=== PATIENT | female | born 1935 | race Caucasian/White ===

== ENCOUNTER 2019-07-30 14:43 | Emergency (ER) | payer OTHER ==
--- OUTSIDE RECORDS SUMMARY | 2019-07-30 14:45 | XMS REPORT | Continuity of Care Document ---
:1935 Author Organization [facility] t Address [address] [place] [address] Care Team Providers Name Role Phone Unavailable Unavailable Unavailable Problems Condition Condition Condition Status Onset Resolution Last Treating Co mments Source Name Details Category Date Date Treatment Clinician Date History of History of Problem Active [facility] partial partial [facility] - colectomy colectomy Uri erica l Outpati ent Clinics Non-season Non-season Problem Active [facility] al al [facility] - allergic allergic Memori a rhinitis, rhinitis, l unspecifie unspecifie Ou tpati d trigger d trigger ent Clinics History of History of Problem Active [facility] colon colon [facility] - cancer cancer [facility] HTN HTN Problem Active [facility] (hypertens (hypertens [place] [facility] - ion) ion) [facility] Generalize Generalize Problem Active [facility] d anxiety d anxiety [facility] - disorder disorder Memori a l Outpati ent Clinics Atrial Atrial Problem Active [facility] fibrillati fibrillati [place] kes - on, on, Memoria unspecifie unspecifie l d type d type Outpati ent Clinics Current Current Problem Active [facility] 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 ent without without Clinics prior prior episode episode Abnormal Abnormal Problem Active [facility] heart heart [facility] - rhythm rhythm [facility] Urinary Urinary Problem Active [facility] incontinen incontinen [place] kes - ce, ce, Memoria unspecifie unspecifie l d type d type Outpati ent Clinics Primary Primary Problem Active [facility] osteoarthr osteoarthr [place] [facility] - itis, itis, Memoria right right l shoulder shoulder Outpat i ent Clinics Primary Primary Problem Active [facility] osteoarthr osteoarthr [place] [facility] - itis, left itis, left Me moria shoulder shoulder l Outpati ent Clinics Heart Heart Problem Active [facility] disease disease [facility]ics Cancer Cancer Problem Active [facility] Lower Lower Problem Active [facility] extremity extremity Luke s - neuropathy neuropathy Me moria l [facility] Dysphagia, Dysphagia, Problem Active [facility] unspecifie unspecifie [place] [facility]es - d type d type Memoria l [facility] Circulatio Circulatio Problem Active [facility] n problem n problem [facility] - [facility] Aortic Aortic Problem Active [facility] valve valve [facility] - stenosis, stenosis, Uri erica etiology etiology l of cardiac of cardiac Ou tpati valve valve ent disease disease Clinics unspecifie unspecifie d d Depression Depression Problem Active [facility] Gallstones Gallstones Problem Active [facility] Anxiety Anxiety Problem Active [facility] 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 [facility] Stroke Stroke Problem Active [facility] Diverticul Diverticul Problem Active [facility] itis itis [facility] - [facility] Discolored Discolored Diagnosis Active [facility] skin skin [facility] Left leg Left leg Diagnosis Active [facility] pain pain [facility] Swelling Swelling Diagnosis Active [facility] of left of left [facility] - foot foot [facility] l [facility] Dermatitis Dermatitis Diagnosis Active [facility] of left of left [facility] - foot foot [facility] l [facility] Allergies, Adverse Reactions, Alerts Allergy Allergy Status Severity Reaction(s) Onset Inactive Treating Comm ents Source Name Type Date Date Clinician Codeine Adverse Active Info Not [facility] Sulfate Reaction Available [facility] - [facility] Medications Ordered Filled Start Stop Current Ordering Indication Dosage Frequency Signature Comments Components Source Medication Medication Date Date Medication? Clinician (SIG) Name Name HydrOXYzine HydrOXYzine Yes Grayson [address] [facility] HCl HCl [facility]an [facility] Atenolol Atenolol Yes Grayson [address] [facility] Eliquis Eliquis Yes Grayson [address] [facility] Citalopram Citalopram Yes Grayson [address] [facility] [address] Hydrobromid Hydrobromid [facility]an [facility] - e e [facility] Outpati ent Clinics Tolterodine Tolterodine Yes Grayson [address] Tartrate Tartrate [facility] Outpati ent Clinics Myrbetriq Myrbetriq Grayson [address] [facility] 07-01 [facility]an [facility] - 00:00 Memoria :00 l Outpati ent Clinics Procedures This patient has no known procedures. Encounters Start End Encounter Admission Attending Care Care Encounter Source Date/Time Date/Time Type Type Clinicians Facility Department ID 2019-07-29 2019-07-29 Outpatient Kimberlyn Morrow [id number] [facility] 11:45:00 11:45:00 t [facility] 2019-07-16 2019-07-16 Outpatient Kimberlyn Morrow [id number] [facility] 13:58:00 13:58:00 t [facility] properties and services [facility] Medicine Outpati ent Clinics 2019-05-29 2019-05-29 Outpatient Kimberlyn Morrow [id number] [facility] 13:15:00 13:15:00 t [facility] Results This patient has no known results.
--- OUTSIDE RECORDS SUMMARY | 2019-07-30 14:46 | XMS REPORT ---
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 Problem Cancer C80.1 Active Problem History of colon cancer Z85.038 Acti ve Problem Lower extremity neuropathy G57.90 A ctive Problem Dysphagia, unspecified type R13.10 Active Problem Circulation problem I99.9 Active Problem Aortic valve stenosis, etiology of I35.0 Active cardiac valve disease unspecified Problem Atrial fibrillation, unspecified I48.91 Active type Problem HTN (hypertension) I10 Active Problem Depression F32.9 Active Problem Gallstones K80.20 Active Problem Generalized anxiety disorder F41.1 Active Problem Anxiety F41.9 Active Problem Allergic rhinitis J30.9 Active Problem Stroke I63.9 Active Problem Essential hypertension I10 Activ e Problem History of partial colectomy Z90.49 Active Problem Diverticulitis K57.92 Active Problem Non-seasonal allergic rhinitis, J30.89 Active unspecified trigger Medications No Known Medications Results No Known Results Summary Purpose eClinicalWorks Submission
--- OUTSIDE RECORDS SUMMARY | 2019-07-30 14:46 | XMS REPORT ---
:1935 Author Organization [employer] Care Team Providers Name Role Phone Aung Grayson Provider Role Unavailable Allergies, Adverse Reactions, Alerts Substance Reaction Event Type Codeine Sulfate Info Not Available Drug Allergy Problems Problem Type Condition Code Onset Dates Condition Statu s Assessment Discolored skin L81.9 Active Assessment Left leg pain M79.605 Active Assessment Swelling of left foot M79.89 Active Assessment Dermatitis of left foot L30.9 Acti ve Problem Essential hypertension I10 Activ e Problem Non-seasonal allergic rhinitis, J30.89 Active unspecified trigger Problem History of partial colectomy Z90.49 Active Problem Current moderate episode of major F32.1 Active depressive disorder without prior episode Problem Abnormal heart rhythm I49.9 Active Problem Urinary incontinence, unspecified R32 Active type Problem Primary osteoarthritis, 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 Problem Primary osteoarthritis, 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 Problem Heart disease I51.9 Active Problem Cancer C80.1 Active Problem Lower extremity neuropathy G57.90 A ctive Problem History of colon cancer Z85.038 Acti ve Problem Dysphagia, unspecified type R13.10 Active Problem Circulation problem I99.9 Active Problem Aortic valve stenosis, etiology of I35.0 Active cardiac valve disease unspecified Problem Atrial fibrillation, unspecified I48.91 Active type Problem HTN (hypertension) I10 Active Problem Depression F32.9 Active Problem Gallstones K80.20 Active Problem Generalized anxiety disorder F41.1 Active Problem Anxiety F41.9 Active Problem Allergic rhinitis J30.9 Active Problem Stroke I63.9 Active Problem Diverticulitis K57.92 Active Medications Medication Code Code Instructions Start End Status Dosage System Date Date Eliquis [facility] 68516000293 5 MG Orally Once Active 1 t ablet a day HydrOXYzine HCl [facility] 69185148593 10 MG Orally Active 1 tablet Once a day Tolterodine ND 88268178346 2 MG Orally Active 1 ta blet Tartrate Twice a day Myrbetriq ND 75843512712 50 MG Orally August Active 1 tab let Once a day 2019 Atenolol [facility] 64903148211 25 MG Orally Active 1 tabl et Once a day Citalopram [facility] 42295264803 20 MG Orally Active 1 ta blet Hydrobromide Once a day Results No Known Results Summary Purpose eClinicalWorks Submission
--- OUTSIDE RECORDS SUMMARY | 2019-07-30 14:46 | XMS REPORT ---
:1935 Author Organization eClinicalWorks Care Team Providers Name Role Phone Aung Grayson Provider Role Unavailable Allergies, Adverse Reactions, Alerts Substance Reaction Event Type Codeine Sulfate Info Not Available Drug Allergy Problems Problem Type Condition Code Onset Dates Condition Statu s Assessment History of partial colectomy Z90.49 Active Assessment Non-seasonal allergic rhinitis, J30.89 Active unspecified trigger Assessment History of TIA (transient ischemic Z86.73 Active attack) Assessment History of colon cancer Z85.038 Acti ve Assessment Essential hypertension I10 Activ e Assessment Generalized anxiety disorder F41.1 Active Assessment Atrial fibrillation, unspecified I48.91 Active type Assessment Acute cystitis without hematuria N30.00 Active Assessment Current moderate episode of major F32.1 Active depressive disorder without prior episode Problem Essential hypertension I10 Activ e Problem [...] Problem Atrial fibrillation, unspecified I48.91 Active type Assessment Aortic valve stenosis, etiology of I35.0 Active cardiac valve disease unspecified Problem HTN (hypertension) I10 Active Assessment Urinary incontinence, unspecified R32 Active type Problem Depression F32.9 Active Assessment Acquired left foot drop M21.372 Acti ve Problem Gallstones K80.20 Active Assessment Dysphagia, unspecified type R13.10 Active Problem Generalized anxiety disorder F41.1 Active Problem Anxiety F41.9 Active Assessment Arthralgia of right M25.511 Active acromioclavicular joint Problem Allergic rhinitis J30.9 Active Problem Stroke I63.9 Active Problem Diverticulitis K57.92 Active Medications Medication Code Code Instructions Start End Date Status Dosage System Date HydrOXYzine HCl [facility] 69290052931 10 MG Orally Active 1 tablet Once a day Atenolol ND 83540284898 25 MG Orally Active 1 tabl et Once a day Myrbetriq ND 58308120185 50 MG Orally August 26 Active 1 ta blet Once a day [address] [facility] 66877381122 5 MG Orally Active 1 tablet Once a day Citalopram ND 59780980601 20 MG Orally Active 1 ta blet Hydrobromide Once a day Tolterodine [facility] 38435416242 2 MG Orally Active 1 ta blet Tartrate Twice a day Nitrofurantoin ND 54859133954 100 MG Orally May Active 1 capsule Monohyd Macro BID 2019 at bedtime with food Results No Known Results Summary Purpose eClinicalWorks Submission
[2019-07-30 16:32] LABS: Absolute Lymphocytes (CBC) 1.8 K/uL (0.7-4.9); Basophils % 1.1 % (0-1.3); Hematocrit 41.3 % (36.0-45.0); Lymphocytes % 28.2 % (15.3-44.8); MPV 9.3 fL (7.6-11.3)
[2019-07-30 16:33] LABS: Protime INR 1.35
--- NOTE | 2019-07-30 16:53 | RAD REPORT ---
EXAM DESCRIPTION: RAD - Chest Single View - 07/30/2019 4:42 pm CLINICAL HISTORY: SOB TECHNIQUE: AP portable chest image was obtained 07/30/2019 4:42 pm . FINDINGS: No peripheral mass or consolidation. Baseline for the patient is unknown. Heart size is wi thin normal range for body habitus and portable imaging. Vasculature and lung markings are mildly pro minent. A minimal failure or volume overload cannot be excluded. No measurable pleural effusion and n o pneumothorax. No acute bony abnormality seen. No acute aortic findings suspected. IMPRESSION: No peripheral mass, consolidation or other acute cardiopulmonary finding. Baseline pattern shows a mildly prominent vascular and interstitial pattern. A minimal failure or vol ume overload could not be excluded.
[2019-07-30 16:59] LABS: ALT/SGPT 18 U/L (12-78); AST/SGOT 22 U/L (15-37); Albumin 3.4 g/dL (3.4-5.0); Alkaline Phosphatase 132 U/L (45-117); BUN Blood Urea Nitrogen 20 mg/dL (7-18); Bicarbonate 31 mmol/L (21-32); Bilirubin Direct 0.2 mg/dL (0-0.2); Bilirubin Total 0.9 mg/dL (0.2-1.0); Glucose Level 92 mg/dL (74-106); Magnesium 1.8 mg/dL (1.8-2.4); NT PRO-BNP 814 pg/mL (<450); Potassium 4.3 mmol/L (3.5-5.1); Protein, Total 7.1 g/dL (6.4-8.2); Sodium Level 141 mmol/L (136-145); Troponin (Emerg Dept Use Only) < 0.02 ng/mL (0.0-0.045)
[2019-07-30] MEDS ORDERED: HYDROCODONE/APAP 5/325 MG TAB ONE (17:23)
--- NOTE | 2019-07-30 17:58 | RAD REPORT ---
EXAM DESCRIPTION: CT - Chest For Pe Angio - 07/30/2019 5:26 pm CLINICAL HISTORY: SOB COMPARISON: Chest Single View dated 07/30/2019 TECHNIQUE: Dynamically enhanced 3 mm thick images of the chest were obtained during administration o f approximately 150mL Isovue 370 IV contrast. Coronal and oblique MIP reconstruction images were gene rated and reviewed. Exam utilizes a protocol to evaluate the pulmonary arterial tree. All CT scans are performed using dose optimization technique as appropriate and may include automated exposure control or mA/KV adjustment according to patient size. FINDINGS: No pulmonary emboli are identified. The aorta as imaged shows no acute or suspicious finding. No pericardial thickening or effusion. No focal mass or consolidation. Minimal ground-glass opacities are present and interstitial markings are mildly prominent. Mild edema is suspected. No pleural effusion or pleural thickening. No mediastinal or hilar suspicious masses. No chest wall masses or abnormal axillary lymphadenopathy. IMPRESSION: Mild edema pattern of the lung parenchyma seen. No focal mass or consolidation. No pulmonary emboli. No other significant findings noted.
--- NOTE | 2019-07-30 18:48 | EDPHYS ---
Physician Documentation [facility] Name: Jeannie Cobb Age: 84 yrs Sex: Female : 1935 Arrival Date: 07/30/2019 Time: 14:50 Bed 14 Private MD: ED Physician Aramis Lundberg HPI: 07/29 15:55 This 84 yrs old Female presents to ER via Wheelchair with complaints of LLE cp DVT FROM RADIOLOGY. 15:55 The patient presents with pain, tenderness. The complaints affect the lateral aspect of cp left calf. 15:55 Onset: The symptoms/episode began/occurred gradually. Associated signs and symptoms: cp Pertinent positives: shortness of breath. Patient reports she was referred to ED after having US performed today that showed left leg DVT. Patient reports she currently takes prescribed Eliquis 5 mg daily for A-fib. Historical: - Allergies: 15:04 Codeine; bp - Home Meds: 15:04 Atenolol Oral [Active]; Lexapro Oral [Active]; Eliquis oral oral [Active]; Hydroxyzine bp Oral [Active]; - PMHx: 15:04 Hypertension; Atrial Fib; bp - Immunization history:: Adult Immunizations up to date. - Social history:: Smoking status: Patient denies any tobacco usage or history of. ROS: 16:00 Eyes: Negative for injury, pain, redness, and discharge. cp 16:00 Constitutional: Negative for body aches, chills, fever, poor PO intake. 16:00 ENT: Negative for drainage from ear(s), ear pain, sore throat, difficulty swallowing, difficulty handling secretions. 16:00 Cardiovascular: Negative for chest pain, edema, palpitations. 16:00 Respiratory: Positive for shortness of breath, Negative for cough, wheezing. 16:00 Abdomen/GI: Negative for abdominal pain, nausea, vomiting, and diarrhea. 16:00 Back: Negative for pain at rest, pain with movement, radiated pain. 16:00 : Negative for urinary symptoms. 16:00 MS/extremity: Positive for injury or acute deformity, pain, tenderness, of the left leg, Negative for paresthesias. 16:00 Skin: Positive for rash, of the left foot. 16:00 Neuro: Negative for altered mental status, headache, numbness, weakness. 16:00 All other systems are negative. Exam: 16:05 Constitutional: The patient appears in no acute distress, alert, awake, cp non-diaphoretic, non-toxic, well developed, well nourished. 16:05 Head/Face: Normocephalic, atraumatic. cp 16:05 Eyes: Periorbital structures: appear normal, Conjunctiva: normal, no exudate, no injection, Sclera: no appreciated abnormality, Lids and lashes: appear normal, bilaterally. 16:05 ENT: External ear(s): are unremarkable, Nose: is normal, Mouth: Lips: moist, Oral mucosa: pink and intact, moist, Posterior pharynx: is normal, airway is patent. 16:05 Chest/axilla: Inspection: normal, Palpation: is normal, no crepitus, no tenderness. 16:05 Cardiovascular: Rate: normal, Rhythm: irregularly irregular, Edema: is not appreciated, JVD: is not appreciated. 16:05 Respiratory: the patient does not display signs of respiratory distress, Respirations: normal, no use of accessory muscles, no retractions, labored breathing, is not present, Breath sounds: are clear throughout, no decreased breath sounds, no stridor, no wheezing. 16:05 Abdomen/GI: Inspection: abdomen appears normal, Palpation: abdomen is soft and non-tender, in all quadrants. 16:05 Musculoskeletal/extremity: Extremities: grossly normal except: noted in the left lower leg: pain, tenderness, left foot drop noted, There is no evidence of swelling, Pulses: noted to be 2+ in the right dorsalis pedis artery and left dorsalis pedis artery, Sensation intact. 16:05 Skin: cellulitis, is not appreciated, rash can be described as nonspecific, on the left foot. 16:05 Neuro: Orientation: to person, place \T\ time. Mentation: is normal. 16:28 ECG was reviewed by the Attending Physician. cp Vital Signs: 14:51 BP 133 / 107; Pulse 62; Resp 16; Pulse Ox 97% ; bp 16:12 BP 118 / 62; Pulse 76; Resp 16; Pulse Ox 97% ; bp 17:00 BP 121 / 81; Pulse 70; Resp 14; Pulse Ox 100% ; bp MDM: 15:31 Patient medically screened. cp 17:30 Physician consultation: Eben Gary DO was contacted at 17:30, regarding admission, cp to the telemetry unit. patient's condition, after a discussion of the case, a recommendation for transfer for higher level of care is made, reports patient may need Aashish filter placed. 18:25 Data reviewed: vital signs, nurses notes, lab test result(s), EKG, radiologic studies, cp CT scan, plain films, I have discussed the patient's presentation/case with the attending Emergency Department Physician;. 18:25 Test interpretation: by ED physician or midlevel provider: ECG. 07/29 15:56 Order name: Basic Metabolic Panel; Complete Time: 17:02 / 17:22 Interpretation: Normal except: BUN 20; GFR 53. 07/29 15:56 Order name: CBC with Diff; Complete Time: 16:46 / 16:46 Interpretation: Normal except: MN% 14.3. / 15:56 Order name: LFT's; Complete Time: 17:02 07/29 15:56 Order name: Magnesium; Complete Time: 17:02 07/29 15:56 Order name: NT PRO-BNP; Complete Time: 17:02 07/29 15:56 Order name: PT-INR; Complete Time: 16:46 / 16:46 Interpretation: Reviewed. 07/29 15:56 Order name: Troponin (emerg Dept Use Only); Complete Time: 17:02 / 15:56 Order name: XRAY Chest (1 view); Complete Time: 17:02 / 15:56 Order name: EKG; Complete Time: 15:57 07/29 15:56 Order name: Cardiac monitoring; Complete Time: 16:11 07/29 15:56 Order name: EKG - Nurse/Tech; Complete Time: 16:32 /03 17:03 Order name: CT Chest For PE Angio; Complete Time: 18:19 07/29 18:19 Interpretation: Report reviewed. / 18:52 Order name: Diet Regular; Complete Time: 18:52 07/29 15:56 Order name: IV Saline Lock; Complete Time: 16:11 / 15:56 Order name: Labs collected and sent; Complete Time: 16:11 07/29 15:56 Order name: O2 Per Protocol; Complete Time: 16:01 cp 07/29 15:56 Order name: O2 Sat Monitoring; Complete Time: 16: EC:28 Rate is 72 beats/min. Rhythm is irregularly irregular. QRS interval is normal. QT cp interval is normal. T waves are Inverted in lead V2. Interpreted by me. Reviewed by me. Administered Medications: 17:15 Drug: HYDROcodone-acetaminophen 5 mg-325 mg 1 tabs Route: Feeding Tube; bp Disposition: 07/30 09:10 Co-signature as Attending Physician, Aramis Lundberg MD I agree with the assessment and kdr plan of care. Disposition: 07/30/19 18:[address] [facility]. Diagnosis is Acute embolism and thrombosis of left popliteal vein. - Reason for transfer: Higher level of care. - Accepting physician is DR Cooley. - Condition is Stable. - Problem is new. - Symptoms have improved. Signatures: Dispatcher [employer] EDMS Aramis Lundberg MD MD kdr Vicente Rodriguez PA PA cp Bernardino Gould RN RN bp Valorie Jacob RN RN ls4 Corrections: (The following items were deleted from the chart) 07/29 16:29 15:20 ECG was reviewed by the Attending Physician. cp 16:29 15:20 Rate is 98 beats/min. Rhythm is irregularly irregular, A fib. QRS interval is cp prolonged at 116 msec. QT interval is normal. T waves are Inverted in lead aVR. Interpreted by me. Reviewed by me. cp 19:22 18:47 07/30/2019 18:[address] [facility]. cp Diagnosis is Acute embolism and thrombosis of left popliteal vein. Reason for transfer: Higher level of care. Accepting physician is Condition is Stable. Problem is new. Symptoms have improved. cp 20:47 19:22 07/30/2019 18:[address] [facility]. ls4 Diagnosis is Acute embolism and thrombosis of left popliteal vein. Reason for transfer: Higher level of care. Accepting physician is DR Cooley. Condition is Stable. Problem is new. Symptoms have improved. cp
--- NOTE | 2019-07-30 18:48 | ER ---
Nurse's Notes [facility] Name: Jeannie Wang Age: 84 yrs Sex: Female : 1935 Arrival Date: 07/30/2019 Time: 14:50 Bed 14 Private MD: Diagnosis: Acute embolism and thrombosis of left popliteal vein Presentation: 07/29 14:51 Chief complaint: Patient states: SENT FROM RADIOLOGY FOR DVT ON U/S. PT STATES SENT FOR bp U/S BY PCP 2/2 LEFT FOOT SKIN CHANGES x1 MONTH. Coronavirus screen: Proceed with normal triage. Ebola Screen: No symptoms or risks identified at this time. Initial Sepsis Screen: Does the patient meet any 2 criteria? No. Patient's initial sepsis screen is negative. Does the patient have a suspected source of infection? No. Patient's initial sepsis screen is negative. Risk Assessment: Do you want to hurt yourself or someone else? Patient reports no desire to harm self or others. Onset of symptoms is unknown. 14:51 Method Of Arrival: Wheelchair bp 14:51 Acuity: ETIENNE 3 bp Triage Assessment: 14:51 General: Appears in no apparent distress. comfortable, obese, Behavior is calm, bp cooperative, appropriate for age. Pain: Complains of pain in left foot. EENT: No deficits noted. Neuro: No deficits noted. Cardiovascular: No deficits noted. Respiratory: No deficits noted. GI: No signs and/or symptoms were reported involving the gastrointestinal system. : No signs and/or symptoms were reported regarding the genitourinary system. Derm: Skin is dusky, LEFT FOOT. Musculoskeletal: Swelling present in left leg. Historical: - Allergies: 15:04 Codeine; bp - Home Meds: 15:04 Atenolol Oral [Active]; Lexapro Oral [Active]; Eliquis oral oral [Active]; Hydroxyzine bp Oral [Active]; - PMHx: 15:04 Hypertension; Atrial Fib; bp - Immunization history:: Adult Immunizations up to date. - Social history:: Smoking status: Patient denies any tobacco usage or history of. Screenin:51 Abuse screen: Denies threats or abuse. Denies injuries from another. Nutritional bp screening: No deficits noted. Tuberculosis screening: No symptoms or risk factors identified. Fall Risk None identified. Assessment: 14:51 General: SEE TRIAGE NOTE. bp 15:07 Reassessment: RYLIE WANG (DAUGHTER) [phone]. bp 16:12 Reassessment: ALL CURRENT ORDERS IN PROCESS, VS STABLE ON MONITOR. bp 17:19 Reassessment: PT TO CT WITH PLASTICS FACTORY WORKER. bp Vital Signs: 14:51 BP 133 / 107; Pulse 62; Resp 16; Pulse Ox 97% ; bp 16:12 BP 118 / 62; Pulse 76; Resp 16; Pulse Ox 97% ; bp 17:00 BP 121 / 81; Pulse 70; Resp 14; Pulse Ox 100% ; bp ED Course: 14:50 Patient arrived in ED. bp 14:51 Arm band placed on. bp 14:51 Patient has correct armband on for positive identification. Bed in low position. Call bp light in reach. Side rails up X2. 14:53 Triage completed. bp 14:59 Bernardino Gould, RN is Primary Nurse. bp 15:31 Vicente Rodriguez PA is PHCP. cp 15:31 Aramis Lundberg MD is Attending Physician. cp 16:10 Inserted saline lock: 20 gauge in right forearm, using aseptic technique. Blood bp collected. 16:42 XRAY Chest (1 view) In Process Unspecified. EDMS 17:26 CT Chest For PE Angio In Process Unspecified. EDMS 20:53 Patient transferred, IV remains in place. ls4 Administered Medications: 17:15 Drug: HYDROcodone-acetaminophen 5 mg-325 mg 1 tabs Route: Feeding Tube; bp Outcome: 18:47 ER care complete, transfer ordered by MD. cp 20:47 Patient left the ED. ls4 20:50 Transferred to [facility], Transfer form completed. X-rays sent w/ ls4 patient. Note: report to Naya Mcconnell [facility] 20:50 Condition: stable 20:50 Instructed on the need for transfer. Signatures: Dispatcher [employer] EDMS Vicente Rodriguez PA PA cp Bernardino Gould, RN RN Valorie Barraza RN RN ls4
[2019-07-30 20:55] VITALS: BP 121/81; O2SAT 100
--- NOTE | 2019-07-31 09:56 | EKG ---
Test Date: 2019-07-30 Test Time: 16:24:50 Winding Operator: ANDERSON MEASUREMENT RESULTS: Intervals: Rate: 72 MS: QRSD: 96 QT: 418 QTc: 457 [place]: P: MS: QRS: -4 T: 43 INTERPRETIVE STATEMENTS: Atrial fibrillation Possible Anterior infarct, age undetermined Abnormal ECG No previous ECG available for comparison Electronically Signed On 07-31-19 09:53:59 CDT by Cole Milton
== END 2019-07-30 20:47 | disposition short-term general hospital (02) ==
LOC: ER 14:43
DX: I82.432 Acute embolism and thrombosis of left popliteal vein (principal); I10 Essential (primary) hypertension; I48.91 Unspecified atrial fibrillation; Z79.01 Long term (current) use of anticoagulants; Z88.5 Allergy status to narcotic agent
CPT/HCPCS: 93005; 85025; 80048; 36415; 83735; 85610; 80076; 84484; 83880; 71275; 71045; 99285; Q9967; 93926; 93971

== ENCOUNTER 2019-11-11 09:30 | Emergency (ER) | payer OTHER ==
[2019-11-11 09:49] LABS: Absolute Lymphocytes (CBC) 1.5 K/uL (0.7-4.9); Basophils % 0.9 % (0-1.3); Hematocrit 38.9 % (36.0-45.0); Lymphocytes % 21.3 % (15.3-44.8); MPV 8.9 fL (7.6-11.3); RBC Red Blood Cell Count 4.41 M/uL (3.86-4.86)
--- OUTSIDE RECORDS SUMMARY | 2019-11-11 09:52 | XMS REPORT | Clinical Summary ---
:1935 Author Organization [facility] Address [address] [place] [address] Care Team Providers Name Role Phone Pcp Primary Care Provider Unavailable Allergies Active Allergy Reactions Severity Noted Date Comments Codeine Other (See Comments) High 07/30/2019 Pt stat es it makes her crazy Medications Medication Sig Dispensed Refills Start Date End Date Status atenoloL Take 25 mg by 0 Active (TENORMIN) 25 MG mouth daily. tablet hydrOXYzine Take 10 mg by 0 Acti ve (ATARAX) 10 MG mouth as tablet needed. citalopram Take 20 mg by 0 Activ e (CELEXA) 20 MG mouth daily. tablet apixaban (ELIQUIS) Take 5 mg by 0 08/01/19 20 Discontinued 5 mg Tab tablet mouth daily. apixaban (ELIQUIS) Take 1 tablet 180 tablet 0 08/01/201907/31 Discontinued 5 mg Tab tablet (5 mg total) by mouth 2 (two) times daily for 90 days. traMADoL (ULTRAM) Take 1 tablet 30 tablet 0 08/01/2019 020 Discontinued 50 mg tablet (50 mg total) by mouth every 8 (eight) hours as needed for Pain for up to 10 days. Max Daily Amount: 150 mg doxycycline Take 1 capsule 10 capsule 2 08/01/2019 08/01/2019 Discontinued (MONODOX) 100 MG (100 mg total) capsule by mouth every 12 (twelve) hours for 5 days. apixaban (ELIQUIS) Take 1 tablet 180 tablet 0 08/01/201910/29 5 mg Tab tablet (5 mg total) by mouth 2 (two) times daily for 90 days. traMADoL (ULTRAM) Take 1 tablet 30 tablet 0 08/01/2019 020 50 mg tablet (50 mg total) by mouth every 8 (eight) hours as needed for Pain for up to 10 days. Max Daily Amount: 150 mg doxycycline Take 1 capsule 10 capsule 2 08/01/2019 08/06/2019 (MONODOX) 100 MG (100 mg total) capsule by mouth every 12 (twelve) hours for 5 days. Active Problems Problem Noted Date DVT (deep venous thrombosis) 07/31/2019 Encounters Date Type Specialty Care Team Description 07/30/2019 - Hospital Encounter Cardiology Kristi Cooley Acute de ep vein thrombosis (DVT) of popliteal vein of left lower extremity (HCC); 08/01/2019 MD Ronel Essential hypertension; Sheryl Rodriguez, Atrial fi brillation, unspecified type (HCC); Acute deep vein thrombosis (DVT) of left lower extremity, unspecified vein (HCC) Niru Velez 07/30/2019 Travel after 11/10/2018 Social History Tobacco Use Types Packs/Day Years Used Date Former Smoker Cigarettes 20 Quit: 07/29/18 90 Smokeless Tobacco: Never Used Alcohol Use Drinks/Week oz/Week Comments No Alcohol Habits Answer Date Recorded How often do you have a drink containing alcohol? Never 07/30/2019 How many drinks containing alcohol do you have on a typical Not asked day when you are drinking? How often do you have six or more drinks on one occasion? No t asked Sex Assigned at Date Recorded Not on file Job Start Date Occupation Industry Not on file Not on file Not on file Travel History Travel Start Travel End No recent travel history available. Last Filed Vital Signs Vital Sign Reading Time Taken Blood Pressure 104/50 08/01/2019 7:25 AM CDT Pulse 76 08/01/2019 7:25 AM CDT Temperature 36.8 C (98.2 F) 08/01/2019 7:25 AM CDT Respiratory Rate 18 08/01/2019 7:25 AM CDT Oxygen Saturation 98% 08/01/2019 7:25 AM CDT Inhaled Oxygen Concentration - - Weight 99.8 kg (220 lb) 07/30/2019 9:45 PM CDT Height 170.2 cm (5' 7") 07/30/2019 9:45 PM CDT Body Mass Index 34.46 07/30/2019 9:45 PM CDT Plan of Treatment Not on file Procedures Procedure Name Priority Date/Time Associated Comments Diagnosis RHYTHM STRIP - SCAN 08/04/2019 2:40 PM CDT CBC W/PLT COUNT & Routine 08/01/2019 3:52 Result s for this AUTO DIFFERENTIAL AM CDT procedure are in the results section. PREALBUMIN Routine 08/01/2019 3:52 Results for this AM CDT procedure are i n the results section. CBC W/PLT COUNT & Routine 08/01/2019 3:52 Result s for this AUTO DIFFERENTIAL AM CDT procedure are in the results section. PHOSPHORUS Routine 08/01/2019 3:52 Results for this AM CDT procedure are i n the results section. MAGNESIUM Routine 08/01/2019 3:52 Results for this AM CDT procedure are i n the results section. HEPATIC FUNCTION Routine 08/01/2019 3:52 Results for this PANEL AM CDT procedure are i n the results section. BASIC METABOLIC PANEL Routine 08/01/2019 3:52 Re sults for this (7) AM CDT procedure are i n the results section. URINALYSIS W/ REFLEX Routine 07/31/2019 2:53 Res ults for this URINE CULTURE PM CDT procedure are in the results section. URINE CULTURE Routine 07/31/2019 2:53 Results fo r this PM CDT procedure are i n the results section. CBC W/PLT COUNT & Routine 07/31/2019 5:12 Result s for this AUTO DIFFERENTIAL AM CDT procedure are in the results section. TSH/FREE T4 IF Routine 07/31/2019 5:12 Results f or this INDICATED AM CDT procedure are i n the results section. FACTOR 5 LEIDEN PCR Routine 07/31/2019 5:12 Resu lts for this (THROMBOTIC RISK) AM CDT procedure are in the results section. CBC W/PLT COUNT & Routine 07/31/2019 5:12 Result s for this AUTO DIFFERENTIAL AM CDT procedure are in the results section. PHOSPHORUS Routine 07/31/2019 5:12 Results for this AM CDT procedure are i n the results section. MAGNESIUM Routine 07/31/2019 5:12 Results for this AM CDT procedure are i n the results section. HEPATIC FUNCTION Routine 07/31/2019 5:12 Results for this PANEL AM CDT procedure are i n the results section. BASIC METABOLIC PANEL Routine 07/31/2019 5:12 Re sults for this (7) AM CDT procedure are i n the results section. after 11/10/2018 Results RHYTHM STRIP - SCAN (08/04/2019 2:40 PM CDT) Narrative Performed At This result has an attachment that is no t available. CBC with platelet count + automated diff (08/01/2019 3:52 AM CDT)Only the most recent of2 resultswithin the time period is included. WBC 6.7 3.5 - 10.5 K/L [facility] RBC 4.28 3.93 - 5.22 M/L [facility] Hemoglobin 12.0 11.2 - 15.7 GM/DL [facility] Hematocrit 39.3 34.1 - 44.9 % [facility] MCV 91.8 79.4 - 94.8 fL [facility] MCH 28.0 25.6 - 32.2 pg [facility] MCHC 30.5 (L) 32.2 - 35.5 GM/DL [facility] RDW 13.9 11.7 - 14.4 % [facility] Platelets 249 150 - 450 K/CU MM [facility] MPV 10.7 9.4 - 12.3 fL [facility] nRBC 0 0 - 0 /100 WBC [facility] % Neutros 49 % [facility] % Lymphs 34 % [facility] % Monos 13 % [facility] % Eos 3 % [facility] % Baso 1 % [facility] # Neutros 3.24 1.56 - 6.13 K/L [facility] # Lymphs 2.24 1.18 - 3.74 K/L [facility] # Monos 0.88 (H) 0.24 - 0.36 K/L [facility] # Eos 0.23 0.04 - 0.36 K/L [facility] # Baso 0.07 0.01 - 0.08 K/L [facility] Immature Granulocytes-Relative 0 0 - 1 % C [facility] Specimen Blood Performing Organization Address [facility] Phone Number [address] [address] C[place] Prealbumin (08/01/2019 3:52 AM CDT) Prealbumin 10 (L) 14 - 45 mg/dL [facility] Specimen Blood Narrative Performed At General Merchandise Manager ID - PIAYA L [facility] I[facility] CENTER Performing Organization Address [facility] Phone Number [address] [address] C[place] Phosphorus (08/01/2019 3:52 AM CDT)Only the most recent of2 resultswithin the time period is included. Phosphorus 3.5 2.3 - 4.7 mg/dL [facility] Specimen Blood Narrative Performed At General Merchandise Manager ID - PIAYA L [facility] Performing Organization Address [facility] Phone Number [address] [address] C[place] Magnesium (08/01/2019 3:52 AM CDT)Only the most recent of2 resultswithin the time period is included. Magnesium 1.5 (L) 1.6 - 2.6 mg/dL [facility] Specimen Blood Narrative Performed At General Merchandise Manager ID - PIAYA L [facility] Performing Organization Address [facility] Phone Number [address] [address] CENTER Hepatic function panel (08/01/2019 3:52 AM CDT)Only the most recent of2 results within the time period is included. Protein, Total 5.9 (L) 6.0 - 8.3 gm/dL [facility] Albumin 3.3 (L) 3.5 - 5.0 g/dL [facility] Total Bilirubin 0.4 0.2 - 1.2 mg/dL [facility] Bilirubin, Direct 0.2 0.1 - 0.5 mg/dL [facility] Alkaline Phosphatase 112 40 - 150 U/L [facility] AST 16 5 - 34 U/L [facility] ALT 10 6 - 55 U/L [facility] Specimen Blood Narrative Performed At General Merchandise Manager ID - PIAYA L [facility] C[facility] Performing Organization Address City/State/Zipcode Phone Number [facility] [address] [place] [address] [place] Basic metabolic panel (08/01/2019 3:52 AM CDT)Only the most recent of2 results within the time period is included. Sodium 142 136 - 145 meq/L [facility] Potassium 3.9 3.5 - 5.1 meq/L [facility] Chloride 107 98 - 107 meq/L [facility] CO2 27 22 - 29 meq/L [facility] BUN 21 7 - 21 mg/dL [facility] Creatinine 0.97 0.57 - 1.25 mg/dL [facility] Glucose 99 70 - 105 mg/dL [facility] Calcium 8.7 8.4 - 10.2 mg/dL [facility] EGFR 55Comment: ESTIMATED GFR IS mL/min/1.73 sq m [facility] NOT ACCURATE CREATININE [facility] CLEARANCE IN PREDICTING GLOMERULAR FILTRATION RATE. ESTIMATED GFR IS NOT APPLICABLE FOR DIALYSIS PATIENTS. Specimen Blood Narrative Performed At General Merchandise Manager ID - CLAIREIVY Young [facility] CENTER Performing Organization Address City/State/Zipcode Phone Number [facility] [address] [place] [address] CENTER Urinalysis w/Microscopic + Reflex to Culture (07/31/2019 2:53 PM CDT) Color, UA Yellow [facility] Clarity, UA Clear [facility] Specific [place], UA 1.030 1.001 - 1.035 [facility] pH, UA 5.0 5.0 - 8.0 [facility] AL[facility] Protein, UA Negative Negative [facility] Glucose, UA Negative Negative [facility] Ketones, UA Negative Negative [facility] Bilirubin, UA Negative Negative [facility] AL[facility] Blood, UA Negative Negative [facility] Nitrite, UA Negative Negative [facility] Leukocytes, UA Large (A) Negative [facility] Urobilinogen, UA 0.2 0.2 - 1.0 mg/dL [facility] RBC, UA 1 /HPF [facility] WBC, UA 70 /HPF [facility] Mucus Rare [facility] AL[facility] Squam Epithel, UA 1 /HPF [facility] Specimen Source [facility] Specimen Urine Narrative Performed At General Merchandise Manager ID - [auto] [facility] General Merchandise Manager ID - tech Performing Organization Address City/State/Zipcode Phone Number [facility] [address] CENTER Urine culture (07/31/2019 2:53 PM CDT) Result 40-49,000 col/mL Enterobacter [facility] cloacae complex (A) [facility] ER Specimen Urine Narrative Performed At 80-89,000 col/mL skin betty [facility] <10,000 col/mL Gram negative nicky (of a second type). Organism Antibiotic Method Susceptibility Enterobacter cloacae Amikacin <=2: Suscep tible complex Enterobacter cloacae Aztreonam <=1: Suscep tible complex Enterobacter cloacae Cefepime <=1: Suscep tible complex Enterobacter cloacae Cefoxitin >=64: Resis tant complex Enterobacter cloacae Ceftazidime <=1: Suscep tible complex Enterobacter cloacae Ceftriaxone <=1: Suscep tible complex Enterobacter cloacae Ertapenem <=0.5: Susc eptible complex Enterobacter cloacae Gentamicin <=1: Suscep tible complex Enterobacter cloacae Levofloxacin <=0.12: Emily ceptible complex Enterobacter cloacae Meropenem <=0.25: Emily ceptible complex Enterobacter cloacae Nitrofurantoin 32: Suscept ible complex Enterobacter cloacae Tetracycline <=1: Suscep tible complex Enterobacter cloacae Tobramycin <=1: Suscep tible complex Enterobacter cloacae Trimethoprim + Sulfamethoxazole <=20: Susceptible complex Performing Organization Address [facility] Phone Number [address] [address] CENTER TSH/Free T4 If Indicated (07/31/2019 5:12 AM CDT) TSH 1.079 0.350 - 4.940 uIU/mL [facility] Specimen Blood Narrative Performed At General Merchandise Manager ID - LA [facility] Performing Organization Address City/[facility]/Zipcode Phone Number [address] [address] CENTER Factor 5 Leiden PCR (thrombotic risk) (07/31/2019 5:12 AM CDT) Factor V Leiden Mutation SEE BELOWComment: RESULT: [facility] FACTOR V LEIDEN (R506Q) INCORPOR ATED VARIANT NOT DETECTED Interpretation SEE BELOW [facility] Comment: INCORPORATED INTERPRETATION: This individual is negative (nor mal) for the Factor V Leiden (R506Q) variant in the Factor V gene. Increased risk of thrombophilia can be caused by a variety of genetic and non-genetic f actors not screened for by this assay. Laboratory testing supervised and results monito red by Kizzy Rojo MD, PhD, [facility], [facility]. MUTATION ANALYSIS: The Factor V Leiden (R506Q) mutation [NM [id number]. 2: c.[id number]>A (p.R534Q)] in the Factor V gene is one of the most common caus es of inherited thrombophilia. This mutation causes resistance t o degradation of activated Factor V protein by activated protein C (APC). T he Factor V Leiden (R506Q) mutation is detected by amplification of the devon ected region of Factor V gene by polymerase chain reaction (PCR) and fluoresce nt probe hybridization to the targeted region, followed by melting curve cristi sis with a real time PCR system. Although rare, false positive or false n egative results may occur. All results should be interpreted in context of clinical findings, relevant history, and other laboratory data. This test was developed and its analytical perfo rmance characteristics have been determined by [facility]. It has not been cleared or approved by FDA. This assay has been validated pursuant to the CLIA regulations and is used for clinical purposes. Health care providers, please contact your local [employer] genetic counselor or call [phone] ([phone]) for assistance with interpretation of these results. Specimen Blood Narrative Performed At Performing Lab [facility] [address] [place] [address] Aysha Waller MD, PhD, TIFF Performing Organization Address City/State/Zipcode Phone Number Super Vitamin [place] [facility] [place] [address] [facility] [address] [facility]10/2018 Insurance Payer Benefit Plan / Group Subscriber ID Type Phone A ddress [employer] - MEDICARE MGD [employer] MEDICARE ADV xxxxxxxxx Maps Contracted CARE Advance Directives For more information, please contact:[place] [id number] [facility] [place], [place] [phone] Code Status Date Activated Date Inactivated Comments Full Code 07/31/2019 1:13 AM 08/01/2019 4:04 PM This code status was determined by: Patient
--- OUTSIDE RECORDS SUMMARY | 2019-11-11 09:53 | XMS REPORT ---
:1935 Author Organization [employer] Care Team Providers Name Role Phone Giancarlo Horanh Provider Role Unavailable Allergies, Adverse Reactions, Alerts Substance Reaction Event Type Codeine Sulfate Info Not Available Drug Allergy Problems Problem Type Condition Code Onset Dates Condition Statu s Assessment Atrial fibrillation, unspecified I48.91 Active type Assessment Generalized anxiety disorder F41.1 Active Assessment PVD (peripheral vascular disease) I73.9 Active with claudication Assessment Current moderate episode of major F32.1 Active depressive disorder without prior episode Assessment Health group home, active care Z78.9 Active coordination Assessment Left leg pain M79.605 Active Assessment Need for home health care Z74.2 Ac tive Assessment Acute deep vein thrombosis (DVT) of I82.432 Active popliteal vein of left lower extremity Problem History of partial colectomy Z90.49 Active Problem Non-seasonal allergic rhinitis, J30.89 Active unspecified trigger Problem Current moderate episode of major F32.1 Active depressive disorder without prior episode Problem History of colon cancer Z85.038 Acti ve Problem Urinary incontinence, unspecified R32 Active type Problem Circulation problem I99.9 Active Problem Abnormal heart rhythm I49.9 Active Problem Lower extremity neuropathy G57.90 A ctive Problem Primary osteoarthritis, 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 Problem Gallstones K80.20 Active Problem Heart disease I51.9 Active Assessment Aortic valve stenosis, etiology of I35.0 Active cardiac valve disease unspecified Problem PVD (peripheral vascular disease) I73.9 Active with claudication Problem Cancer C80.1 Active Assessment Dysphagia, unspecified type R13.10 Active Problem Atrial fibrillation, unspecified I48.91 Active type Assessment Acquired left foot drop M21.372 Acti ve Problem Dysphagia, unspecified type R13.10 Active Assessment Arthralgia of right M25.511 Active acromioclavicular joint Problem Primary osteoarthritis, 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 Problem Aortic valve stenosis, etiology of I35.0 Active cardiac valve disease unspecified Assessment History of TIA (transient ischemic Z86.73 Active attack) Problem Depression F32.9 Active Assessment Essential hypertension I10 Activ e Problem Stroke I63.9 Active Assessment History of partial colectomy Z90.49 Active Problem Generalized anxiety disorder F41.1 Active Assessment History of colon cancer Z85.038 Acti ve Problem HTN (hypertension) I10 Active Assessment Urinary incontinence, unspecified R32 Active type Problem Allergic rhinitis J30.9 Active Assessment Non-seasonal allergic rhinitis, J30.89 Active unspecified trigger Problem Essential hypertension I10 Activ e Problem Diverticulitis K57.92 Active Problem Anxiety F41.9 Active Medications Medication Code Code Instructions Start End Status Dosage System Date Date HydrOXYzine HCl [facility] [place] 32368875483 10 MG Orally Active 1 tablet Once a day Myrbetriq [facility] [place] 96890492125 50 MG Orally Active 1 tab let Once a day Atenolol [facility] [place] 34574933745 25 MG Orally Active 1 tabl et Once a day Eliquis [facility] [place] 37440408417 5 MG Orally BID Active 1 ta blet Tolterodine [facility] [place] 67844294818 2 MG Orally Active 1 ta blet Tartrate Twice a day Citalopram [facility] 05887541317 20 MG Orally Active 1 ta blet Hydrobromide Once a day Results No Known Results Summary Purpose [employer]Works Submission
--- OUTSIDE RECORDS SUMMARY | 2019-11-11 09:53 | XMS REPORT ---
:1935 Author Organization [employer] Care Team Providers Name Role Phone Aung Grayson Provider Role Unavailable Allergies No Known Allergies Problems Problem Type Condition Code Onset Dates Condition Statu s Assessment PVD (peripheral vascular disease) I73.9 Active with claudication Problem History of partial colectomy Z90.49 Active [...] K80.20 Active Problem Heart disease I51.9 Active Problem PVD (peripheral vascular disease) I73.9 Active with claudication Problem Cancer C80.1 Active Problem Atrial fibrillation, unspecified I48.91 Active type Problem Dysphagia, unspecified type R13.10 Active Problem Primary osteoarthritis, 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
--- OUTSIDE RECORDS SUMMARY | 2019-11-11 09:53 | XMS REPORT ---
:1935 Author Organization [employer] Care Team Providers Name Role Phone Aung Grayson Provider Role Unavailable Allergies No Known Allergies Problems Problem Type Condition Code Onset Dates Condition Statu s Problem History of partial colectomy Z90.49 Active [...]
--- OUTSIDE RECORDS SUMMARY | 2019-11-11 09:53 | XMS REPORT ---
:1935 Author Organization [employer] Care Team Providers Name Role Phone Augn Grayson Provider Role Unavailable Allergies No Known [...]
--- OUTSIDE RECORDS SUMMARY | 2019-11-11 09:53 | XMS REPORT ---
:1935 Author Organization [employer] Care Team Providers Name Role Phone Grayson Horan Provider Role Unavailable Allergies No Known Allergies Problems Problem Type Condition Code Onset Dates Condition Statu s Assessment Acute deep vein thrombosis (DVT) of I82.432 Active popliteal vein of left lower extremity Assessment History of TIA (transient ischemic Z86.73 Active attack) Problem History of partial colectomy Z90.49 Active [...] Medications Results No Known Results Summary Purpose [employer] Submission
--- OUTSIDE RECORDS SUMMARY | 2019-11-11 09:53 | XMS REPORT | Continuity of Care Document ---
:1935 Author Organization [facility] t Address [address] [place] [address] Care Team Providers Name Role Phone Pcp Primary Care Physician Unavailable RONEL COOLEY Attending Clinician Unavailable Ronel Cooley MD Attending Clinician Michael GUDINO Attending Clinician Lila Velez Attending Clinician RONEL COOLEY Admitting Clinician Unavailable Payers Payer Name Policy Type Policy Number Effective Date Expiration Source Date HUMANA - MEDICARE MGD xxxxxxxxx [facility] Problems Condition Condition Condition Status Onset Resolution Last Treating Co mments Source Name Details Category Date Date Treatment Clinician Date DVT (deep 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[facility] venous venous 6 [facility] - thrombosis thrombosis 00:00: Me dical ) ) 00 Center History of History of Problem Active C [...] cancer cancer [facility] Essential Essential Problem Active [facility] hypertensi hypertensi [place] [facility] - on on [facility] Generalize Generalize Problem Active [facility] d anxiety d anxiety [facility] - disorder disorder [facility] Atrial Atrial Problem Active [facility] fibrillati fibrillati [place] [facility] - on, on, Memoria unspecifie unspecifie l d type d type [facility] Current Current Problem Active [facility] 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 ent without without Clinics prior prior episode episode Abnormal Abnormal Problem Active [facility] heart heart [facility] - rhythm rhythm [facility] Urinary Urinary Problem Active [facility] incontinen incontinen [place] [facility] - ce, ce, Memoria unspecifie unspecifie l d type d type [facility] Primary Primary Problem Active [facility] osteoarthr osteoarthr [place] [facility] - itis, itis, Memoria right right l shoulder shoulder Outpat i ent Clinics Primary Primary Problem Active [facility] osteoarthr osteoarthr [place] [facility] - itis, left itis, left Me moria shoulder shoulder l [facility] Heart Heart Problem Active [facility] disease disease [facility]ics Cancer Cancer Problem Active [facility] Lower Lower Problem Active [facility] extremity extremity [facility] - neuropathy neuropathy Me moria l [facility] Dysphagia, Dysphagia, Problem Active [facility] unspecifie unspecifie [place] [facility] - d type d type [facility] Circulatio Circulatio Problem Active [facility] n problem n problem [facility] - [facility] Aortic Aortic Problem Active [facility] valve valve [facility] - stenosis, stenosis, Uri erica etiology etiology l of cardiac of cardiac Ou tpati valve valve ent disease disease Clinics unspecifie unspecifie d d Depression Depression Problem [facility] Gallstones Gallstones Problem Active [facility] Anxiety Anxiety Problem Active [facility] 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 [facility] Stroke Stroke Problem Active [facility] Diverticul Diverticul Problem Active [facility] itis itis [facility] PVD PVD Problem Active [facility] (periphera (periphera [place] [facility] - l vascular l vascular Me moria disease) disease) l with with [facility] claudicati claudicati en t on on Clinics Allergies, Adverse Reactions, Alerts Allergy Allergy Status Severity Reaction(s) Onset Inactive Treating Comm ents Source Name Type Date Date Clinician Codeine Drug Active Other (See Pt states [facility] Intolera Comments) 07-29 it makes Fitz es - nce [facility] Codeine Adverse Active Info Not [facility] Sulfate Reaction Available [facility] Social History Social Habit Start Date Stop Date Quantity Comments Source History [facility] - Alcohol Std Drinks [facility] History [facility] - Alcohol Binge Medical Andrew ter Sex Assigned At [facility] History SDOH 2019-07-30 2019-07-[address] [facility] - Alcohol Frequency 00:00:00 00:00:00 [facility] Center History of tobacco 1989-07-29 Current smoker [facility] - use 00:00:00 [facility] Smoking Status Start Date Stop Date Source Former smoker 2019-07-31 00:00:00 2019-07-31 00:00:00 [facility] Medications Ordered Filled Start Stop Current Ordering Indication Dosage Frequency Signature Comments Components Source Medication Medication Date Date Medication? Clinician (SIG) Name Name apixaban 2020- No 5mg QD Take [address] [address] (ELIQUIS) 5 07-31 by mouth Fitz es - mg Tab 11:30: 00:00 daily. Medical tablet 50 :00 [place] apixaban 2020- No 5mg Q.5D Take [address] (ELIQUIS) 5 07-3103 tablet (5 [place] [facility] - mg Tab 00:00: 23:59 mg total) Medic al tablet 00 :00 by mouth 2 Center (two) times daily for 90 days. traMADoL 2020- No 50mg Take [address] (ULTRAM) 50 07-31-15 tablet (50 L ukes - mg tablet 00:00: 23:59 mg total) Me dical 00 :00 by mouth Center every 8 (eight) hours as needed for Pain for up to 10 days. Max Daily Amount: 150 mg doxycycline 2020- No 100mg Take [address] (MONODOX) 07-31-10 capsule [facility] - 100 MG 00:00: 23:59 (100 mg Medical capsule 00 :00 total) by Center mouth every 12 (twelve) hours for 5 days. apixaban 2019-0 2019- No 5mg Q.5D Take [address] (ELIQUIS) 5 07-31- tablet (5 [place] - mg Tab 00:00: 00:00 mg total) Medic al tablet 00 :00 by mouth 2 Center (two) times daily for 90 days. traMADoL 2019- No 50mg Take [address] (ULTRAM) 50 07-31 tablet (50 L ukes - mg tablet 00:00: 00:00 mg total) Me dical 00 :00 by mouth Center every 8 (eight) hours as needed for Pain for up to 10 days. Max Daily Amount: 150 mg doxycycline 0 2019- No 100mg Take [address] (MONODOX) 07-31 capsule [facility] - 100 MG 00:00: 00:00 (100 mg Medical capsule 00 :00 total) by Center mouth every 12 (twelve) hours for 5 days. atenoloL 2019-0 Yes 25mg QD Take [address] (TENORMIN) 6-03 by mouth [facility] - 25 MG 22:19: daily. Medical tablet 41 Center hydrOXYzine 2019-0 Yes 10mg Take [address] (ATARAX) 10 6-03 by mouth Luke s - MG tablet 22:19: as needed. Me dical 41 Center citalopram 2020-0 Yes 20mg QD Take [address] (CELEXA) 20 6-03 by mouth Luke s - MG tablet 22:19: daily. Medica l 41 Center HydrOXYzine HydrOXYzine Yes Gr[place] [address] HCl HCl [facility] Atenolol Atenolol Yes [place] [address] [facility] Eliquis Eliquis Yes [place] [address] [facility] Citalopram Citalopram Yes [place] [address] Hydrobromid Hydrobromid [facility] e [facility] Tolterodine Tolterodine Yes Gr[place] [address] Tartrate Tartrate [facility] Myrbetriq Myrbetriq 2019- No [place] [address] 08-26 [facility] - 00:00 Memoria :00 l Outpati ent Clinics Vital Signs Vital Name Observation Time Observation Value Comments Source Systolic blood 2019-08-01 07:25:00 104 mm[Hg] [facility] Diastolic blood 2019-08-01 07:25:00 50 mm[Hg] [facility] Heart rate 2019-08-01 07:25:00 76 /min [facility] Body temperature 2019-08-01 07:25:00 36.78 Blanca [facility] Respiratory rate 2019-08-01 07:25:00 18 /min [facility] Oxygen saturation in 2019-08-01 07:25:00 98 /min [facility] Arterial blood by Medical Ce nter Pulse oximetry Body height 2019-07-30 21:45:00 170.2 cm [facility] Body weight Measured 2019-07-30 21:45:00 99.791 kg [facility] BMI 2019-07-30 21:45:00 34.46 kg/m2 [facility] Procedures Procedure Date / Time Performed Performing Clinician [facility] RHYTHM STRIP - SCAN 2019-08-04 14:40:16 [facility] BASIC METABOLIC PANEL 2019-08-01 03:52:00 [facility] (7) [facility] HEPATIC FUNCTION PANEL 2019-08-01 03:52:00 [facility] MAGNESIUM 2019-08-01 03:52:00 [facility] PHOSPHORUS 2019-08-01 03:52:00 [facility] PREALBUMIN 2019-08-01 03:52:00 Niru Velez [facility] CBC W/PLT COUNT & AUTO 2019-08-01 03:52:00 [facility] URINE CULTURE 2019-07-31 14:53:00 Niru Velez [facility] URINALYSIS W/ REFLEX 2019-07-31 14:53:00 Niru Velez [facility] URINE CULTURE [facility] BASIC METABOLIC PANEL 2019-07-31 05:12:00 [facility] (7) [facility] HEPATIC FUNCTION PANEL 2019-07-31 05:12:00 [facility] MAGNESIUM 2019-07-31 05:12:00 [facility] PHOSPHORUS 2019-07-31 05:12:00 [facility] FACTOR 5 LEIDEN PCR 2019-07-31 05:12:00 [facility] (THROMBOTIC RISK) [facility] TSH/FREE T4 IF INDICATED 2019-07-31 05:12:00 [facility]jefferson [facility]yl [facility] CBC W/PLT COUNT & AUTO 2019-07-31 05:12:00 [facility] Encounters Start End Encounter Admission Attending Care Care Encounter Source Date/Time Date/Time Type Type Clinicians Facility Department ID 2019-10-15 2019-10-15 [facility] [id number] [facility] 16:38:00 16:38:00 [facility] Family Medicine Medicine Outpati ent Clinics 2019-10-08 2019-10-08 [facility] [id number] 16:14:00 16:14:00 [facility] Family [facility] l Medicine Outpati ent Clinics 2019-10-08 2019-10-08 [facility] [id number] 15:15:00 15:15:00 [facility] Family [facility] l Medicine Outpati ent Clinics 2019-09-11 2019-09-11 [facility] [id number] [facility] 15:01:00 15:01:00 [facility] Family Medicine l Medicine Outpati ent Clinics 2019-08-21 2019-08-21 [facility] [id number] 09:48:00 09:48:[address] [facility] 2019-08-06 2019-08-06 [facility] [id number] 16:00:00 16:00:[address] [facility] ent Clinics 2019-07-30 2019-07-30 [facility] [id number] 14:27:00 14:27:00 [facility] Outpati ent Clinics 2019-07-29 2019-07-29 [facility] [id number] 11:45:00 11:45:[address] [facility] ent Clinics 2019-07-16 2019-07-16 [facility] [id number] 13:58:00 13:58:[address] [facility] ent [facility] 2019-05-29 2019-05-29 [facility] [id number] 13:15:00 13:15:[address] [facility] ent [facility] Results Test Description Test Time Test Comments Results Result Comments Source Factor 5 Leiden PCR (thrombotic risk) 2019-08-05 11:59:00 Test Item Value Reference Range Interpretation Comme nts Factor V Leiden Mutation SEE BELOW RES ULT: FACTOR V LEIDEN (test code = 7260061) (R506Q ) VARIANT NOT DETECTED Interpretation (test code = SEE BELOW INTERPRETATION: This 2340879) individual is n egative (normal) for th e Factor V Leiden(R506Q) v ariant in the Factor V gene. Increased risk of thrombophili a can becaused by a variety of genetic and non-genetic fac tors not screened for by this assay. Laboratory test ing supervised and results mon itored by Kizzy Rojo MD, PhD, [facility], [facility]. MUTATION ANALYS IS:The Factor V Leiden (R506Q) mutation [NM 951816.2: c.160 1G>A (p.R534Q)] inthe Factor V gene is one of the most common causes of inheritedthromb ophilia. This mutation causes resistance to degradation of activatedFactor V protein by ac tivated protein C (APC). The Fa ctor V Leiden (R506Q)mutation is detected by amplification o f the selected region of Facto r V geneby polymerase zackery n reaction (PCR) and fluor escent probe hybridization t o thetargeted region, followe d by melting curve analysis with a real time PCRsystem. Although rare, false positive or false negative result s may occur.All results should be interpreted in context of c linical findings, relev anthistory, and other laborator y data. This test was develo ped and its analytical perf ormance characteristics havebeen determined by [facility] [facility].It has not been cleared or approved by FDA. This assay has been validatedpursua nt to the CLIA regulations and is used for clinical purpos es. Health care providers, plea se contact your local [place] geneticcounselo r or call [phone] ([phone]) for assistance withinterpretat ion of these results. DONELL (test code = DONELL) Performing Lab EZ [facility] [address] [place] [address] yAsha Waller MD, PhD, TIFF [facility] CenterPrealbumin2020-06-05 05:37:00 Test Item Value Reference Range Interpretation Comments Prealbumin (test code = 10 mg/dL 14-45 L 89083-0) DONELL (test code = DONELL) Greenhouse Assistant ID - PIAYA L Lab Interpretation (test Abnormal code = 29379-3) [facility]IN2020-06-05 05:37:00 Test Item Value Reference Range Interpretation Comments PREALBUMIN (BEAKER) (test code = 10 mg/dL 14-45 L 586) Greenhouse Assistant ID - PIAYA LBasic metabolic [id number] 05:08:00 Test Item Value Reference Range Interpretation Comments Sodium (test code = 142 meq/L 753-448 5296-2) Potassium (test 3.9 meq/L 3.5-5.1 code = 2823-3) Chloride (test code 107 meq/L 98-107 = 2075-0) CO2 (test code = 27 meq/L 22-29 2028-9) BUN (test code = 21 mg/dL 7-21 3094-0) Creatinine (test 0.97 mg/dL 0.57-1.25 code = 2160-0) Glucose (test code 99 mg/dL 70-105 = 2345-7) Calcium (test code 8.7 mg/dL 8.4-10.2 = 75382-0) EGFR (test code = 55 mL/min/1.73 [place] [address]-0) NOT ACCURATE CREATININE CLEARANCE IN PREDICTING GLOMERULAR FILTRATION RATE . ESTIMATED GFR I S NOT APPLICABLE FOR DIALYSIS PATIEN DONELL (test code = Greenhouse Assistant ID - DONELL) JENI Young [facility] CenterHepatic function [id number] 05:08:00 Test Item Value Reference Range Interpretation Comments Protein, Total (test code 5.9 6.0- 8.3 gm/dL L = 2885-2) Albumin (test code = 3.3 g/dL 3.5-5 L 83574-7) Total Bilirubin (test code 0.4 mg/dL 0.2-1.2 = 1974-2) Bilirubin, Direct (test 0.2 mg/dL 0.1-0.5 code = 1967-7) Alkaline Phosphatase (test 112 U/L 40-150 code = 6768-6) AST (test code = 1920-8) 16 U/L 5-34 ALT (test code = 1742-6) 10 U/L 6-55 DONELL (test code = DONELL) Greenhouse Assistant ID - JENI Young Lab Interpretation (test Abnormal code = 09330-5) [facility] CenterMagnesium2020-06-05 05:08:00 Test Item Value Reference Range Interpretation Comments Magnesium (test code = 1.5 mg/dL 1.6-2.6 L 79127-5) DONELL (test code = DONELL) Greenhouse Assistant ID - JENI Young Lab Interpretation (test Abnormal code = 87471-6) [facility] CenterPhosphorus2020-06-05 05:08:00 Test Item Value Reference Range Interpretation Comments Phosphorus (test code = 3.5 mg/dL 2.3-4.7 2777-1) DONELL (test code = DONELL) Greenhouse Assistant ID - JENI Young Lab Interpretation (test Normal code = 62325-5) [facility] CenterPHOSPHORUS2020-06-05 05:08:00 Test Item Value Reference Range Interpretation Comments PHOSPHORUS (BEAKER) (test code = 3.5 mg/dL 2.3-4.7 604) Greenhouse Assistant ID Qing [employer] [id number] 05:08:00 Test Item Value Reference Range Interpretation Comments MAGNESIUM (BEAKER) (test code = 1.5 mg/dL 1.6-2.6 L 627) Greenhouse Assistant ID - JENI LBASIC METABOLIC [id number] 05:08:00 Test Item Value Reference Range Interpretation Comments SODIUM (BEAKER) 142 meq/L 136-145 (test code = 381) POTASSIUM (BEAKER) 3.9 meq/L 3.5-5.1 (test code = 379) CHLORIDE (BEAKER) 107 meq/L 98-107 (test code = 382) CO2 (BEAKER) (test 27 meq/L 22-29 code = 355) BLOOD UREA NITROGEN 21 mg/dL 7-21 (BEAKER) (test code = 354) CREATININE (BEAKER) 0.97 mg/dL 0.57-1.25 (test code = 358) GLUCOSE RANDOM 99 mg/dL 70-105 (BEAKER) (test code = 652) CALCIUM (BEAKER) 8.7 mg/dL 8.4-10.2 (test code = 697) EGFR (BEAKER) (test 55 mL/min/1.73 ESTIMA GIA GFR IS code = 1092) sq m NOT ACCURATE CREATININE CLEARANCE IN PREDICTING GLOMERULAR FILTRATION RATE . ESTIMATED GFR I S NOT APPLICABLE FOR DIALYSIS PATIEN TS. Greenhouse Assistant ID - JENI LHEPATIC FUNCTION [id number] 05:08:00 Test Item Value Reference Range Interpretation Comments TOTAL PROTEIN (BEAKER) (test code = 5.9 gm/dL 6.0-8.3 L 770) ALBUMIN (BEAKER) (test code = 1145) 3.3 g/dL 3.5-5.0 L BILIRUBIN TOTAL (BEAKER) (test code 0.4 mg/dL 0.2-1.2 = 377) BILIRUBIN DIRECT (BEAKER) (test 0.2 mg/dL 0.1-0.5 code = 706) ALKALINE PHOSPHATASE (BEAKER) (test 112 U/L 40-150 code = 346) AST (SGOT) (BEAKER) (test code = 16 U/L 5-34 353) ALT (SGPT) (BEAKER) (test code = 10 U/L 6-55 347) Greenhouse Assistant ID - JENI LCBC with platelet count + automated [id number] 05:00:00 Test Item Value Reference Range Interpretation Comments WBC (test code = 6690-2) 6.7 3.5- 10.5 K/L RBC (test code = 789-8) 4.28 3.93- 5.22 M/L MCHC (test code = 786-4) 30.5 32.2- 35.5 GM/DL L Hematocrit (test code = 4544-3) 39.3 % 34.1-44.9 MCV (test code = 787-2) 91.8 fL 79.4-94.8 MCH (test code = 785-6) 28.0 pg 25.6-32.2 RDW (test code = 788-0) 13.9 % 11.7-14.4 Platelets (test code = 777-3) 249 150- 450 K/CU MM MPV (test code = 75162-1) 10.7 fL 9.4-12.3 nRBC (test code = 413) 0 0- 0 /100 WBC % Neutros (test code = 429) 49 % % Lymphs (test code = 430) 34 % % Monos (test code = 431) 13 % % Eos (test code = 432) 3 % % Baso (test code = 437) 1 % # Neutros (test code = 670) 3.24 1.56- 6.13 K/L # Lymphs (test code = 414) 2.24 1.18- 3.74 K/L # Monos (test code = 415) 0.88 0.24- 0.36 K/L H # Eos (test code = 416) 0.23 0.04- 0.36 K/L # Baso (test code = 417) 0.07 0.01- 0.08 K/L Immature Granulocytes-Relative 0 % 0-1 (test code = 2801) Lab Interpretation (test code = Abnormal 38956-8) [facility] CenterCB W/PLT COUNT & AUTO [id number] 05:00:00 Test Item Value Reference Range Interpretation Comments WHITE BLOOD CELL COUNT (BEAKER) 6.7 K/ L 3.5-10.5 (test code = 775) RED BLOOD CELL COUNT (BEAKER) 4.28 M/ L 3.93-5.22 (test code = 761) HEMOGLOBIN (BEAKER) (test code = 12.0 GM/DL 11.2-15.7 410) HEMATOCRIT (BEAKER) (test code = 39.3 % 34.1-44.9 411) MEAN CORPUSCULAR VOLUME (BEAKER) 91.8 fL 79.4-94.8 (test code = 753) MEAN CORPUSCULAR HEMOGLOBIN 28.0 pg 25.6-32.2 (BEAKER) (test code = 751) MEAN CORPUSCULAR HEMOGLOBIN CONC 30.5 GM/DL 32.2-35.5 L (BEAKER) (test code = 752) RED CELL DISTRIBUTION WIDTH 13.9 % 11.7-14.4 (BEAKER) (test code = 412) PLATELET COUNT (BEAKER) (test 249 K/CU MM 150-450 code = 756) MEAN PLATELET VOLUME (BEAKER) 10.7 fL 9.4-12.3 (test code = 754) NUCLEATED RED BLOOD CELLS 0 /100 WBC 0-0 (BEAKER) (test code = 413) NEUTROPHILS RELATIVE PERCENT 49 % (BEAKER) (test code = 429) LYMPHOCYTES RELATIVE PERCENT 34 % (BEAKER) (test code = 430) MONOCYTES RELATIVE PERCENT 13 % (BEAKER) (test code = 431) EOSINOPHILS RELATIVE PERCENT 3 % (BEAKER) (test code = 432) BASOPHILS RELATIVE PERCENT 1 % (BEAKER) (test code = 437) NEUTROPHILS ABSOLUTE COUNT 3.24 K/ L 1.56-6.13 (BEAKER) (test code = 670) LYMPHOCYTES ABSOLUTE COUNT 2.24 K/ L 1.18-3.74 (BEAKER) (test code = 414) MONOCYTES ABSOLUTE COUNT (BEAKER) 0.88 K/ L 0.24-0.36 H (test code = 415) EOSINOPHILS ABSOLUTE COUNT 0.23 K/ L 0.04-0.36 (BEAKER) (test code = 416) BASOPHILS ABSOLUTE COUNT (BEAKER) 0.07 K/ L 0.01-0.08 (test code = 417) IMMATURE GRANULOCYTES-RELATIVE 0 % 0-1 PERCENT (BEAKER) (test code = 2801) Urinalysis w/Microscopic + Reflex to [id number] 15:12:00 Test Item Value Reference Range Interpretation Comments Color, UA (test code = Yellow 5778-6) Clarity, UA (test code = Clear 5767-9) Specific [place], UA (test 1.030 1.001-1.035 code = 5811-5) pH, UA (test code = 5.0 5.0-8.0 5803-2) Protein, UA (test code = Negative Negative 86397-1) Glucose, UA (test code = Negative Negative 365) Ketones, UA (test code = Negative Negative 2514-8) Bilirubin, UA (test code = Negative Negative 33657-3) Blood, UA (test code = Negative Negative 60608-1) Nitrite, UA (test code = Negative Negative 5802-4) Leukocytes, UA (test code Large Negative A = 5799-2) Urobilinogen, UA (test 0.2 mg/dL 0.2-1 code = 71050-6) RBC, UA (test code = 1 /HPF 33213-3) WBC, UA (test code = 70 /HPF 5821-4) Mucus (test code = 8247-9) Rare Squam Epithel, UA (test 1 /HPF code = 18082-9) Specimen Source (test code = 2795) DONELL (test code = DONELL) Greenhouse Assistant ID - [auto]Greenhouse Assistant ID - tech Lab Interpretation (test Abnormal code = 60016-7) [facility]/ REFLEX URINE [id number] 15:12:00 Test Item Value Reference Range Interpretation Comments COLOR (BEAKER) (test code = 470) Yellow CLARITY (BEAKER) (test code = 469) Clear SPECIFIC GRAVITY UA (BEAKER) (test 1.030 1.001-1.035 code = 468) PH UA (BEAKER) (test code = 467) 5.0 5.0-8.0 PROTEIN UA (BEAKER) (test code = Negative Negative 464) GLUCOSE UA (BEAKER) (test code = Negative Negative 365) KETONES UA (BEAKER) (test code = Negative Negative 371) BILIRUBIN UA (BEAKER) (test code = Negative Negative 462) BLOOD UA (BEAKER) (test code = 461) Negative Negative NITRITE UA (BEAKER) (test code = Negative Negative 465) LEUKOCYTE ESTERASE UA (BEAKER) Large Negative A (test code = 466) UROBILINOGEN UA (BEAKER) (test code 0.2 mg/dL 0.2-1.0 = 463) RBC UA (BEAKER) (test code = 519) 1 /HPF WBC UA (BEAKER) (test code = 520) 70 /HPF MUCUS (BEAKER) (test code = 1574) Rare SQUAMOUS EPITHELIAL (BEAKER) (test 1 /HPF code = 516) SOURCE(BEAKER) (test code = 2795) Greenhouse Assistant ID - [auto]Greenhouse Assistant ID - techTSH/Free T4 If [id number] 06:38:00 Test Item Value Reference Range Interpretation Comments TSH (test code = 82245-4) 1.079 0.350- 4.940 uIU/mL DONELL (test code = DONELL) Greenhouse Assistant ID - [place] Lab Interpretation (test Normal code = 16858-3) [facility] T4 IF [id number] 06:38:00 Test Item Value Reference Range Interpretation Comments THYROID STIMULATING HORMONE 1.079 uIU/mL 0.350-4.940 (BEAKER) (test code = 772) Greenhouse Assistant ID - [id number] 06:13:00 Test Item Value Reference Range Interpretation Comments PHOSPHORUS (BEAKER) (test code = 3.9 mg/dL 2.3-4.7 604) Greenhouse Assistant ID - [id number] 06:13:00 Test Item Value Reference Range Interpretation Comments MAGNESIUM (BEAKER) (test code = 1.7 mg/dL 1.6-2.6 627) Greenhouse Assistant ID - LABASIC METABOLIC [id number] 06:13:00 Test Item Value Reference Range Interpretation Comments SODIUM (BEAKER) 138 meq/L 136-145 (test code = 381) POTASSIUM (BEAKER) 4.1 meq/L 3.5-5.1 (test code = 379) CHLORIDE (BEAKER) 105 meq/L 98-107 (test code = 382) CO2 (BEAKER) (test 27 meq/L 22-29 code = 355) BLOOD UREA NITROGEN 19 mg/dL 7-21 (BEAKER) (test code = 354) CREATININE (BEAKER) 0.86 mg/dL 0.57-1.25 (test code = 358) GLUCOSE RANDOM 99 mg/dL 70-105 (BEAKER) (test code = 652) CALCIUM (BEAKER) 8.8 mg/dL 8.4-10.2 (test code = 697) EGFR (BEAKER) (test 63 mL/min/1.73 ESTIMA GIA GFR IS code = 1092) sq m NOT ACCURATE CREATININE CLEARANCE IN PREDICTING GLOMERULAR FILTRATION RATE . ESTIMATED GFR I S NOT APPLICABLE FOR DIALYSIS PATIEN TS. Greenhouse Assistant ID - LAHEPATIC FUNCTION [id number] 06:13:00 Test Item Value Reference Range Interpretation Comments TOTAL PROTEIN (BEAKER) (test code = 6.1 gm/dL 6.0-8.3 770) ALBUMIN (BEAKER) (test code = 1145) 3.4 g/dL 3.5-5.0 L BILIRUBIN TOTAL (BEAKER) (test code 0.9 mg/dL 0.2-1.2 = 377) BILIRUBIN DIRECT (BEAKER) (test 0.4 mg/dL 0.1-0.5 code = 706) ALKALINE PHOSPHATASE (BEAKER) (test 117 U/L 40-150 code = 346) AST (SGOT) (BEAKER) (test code = 19 U/L 5-34 353) ALT (SGPT) (BEAKER) (test code = 11 U/L 6-55 347) Greenhouse Assistant ID - LACBC W/PLT COUNT & AUTO [id number] 05:38:00 Test Item Value Reference Range Interpretation Comments WHITE BLOOD CELL COUNT (BEAKER) 5.9 K/ L 3.5-10.5 (test code = 775) RED BLOOD CELL COUNT (BEAKER) 4.51 M/ L 3.93-5.22 (test code = 761) HEMOGLOBIN (BEAKER) (test code = 12.7 GM/DL 11.2-15.7 410) HEMATOCRIT (BEAKER) (test code = 40.7 % 34.1-44.9 411) MEAN CORPUSCULAR VOLUME (BEAKER) 90.2 fL 79.4-94.8 (test code = 753) MEAN CORPUSCULAR HEMOGLOBIN 28.2 pg 25.6-32.2 (BEAKER) (test code = 751) MEAN CORPUSCULAR HEMOGLOBIN CONC 31.2 GM/DL 32.2-35.5 L (BEAKER) (test code = 752) RED CELL DISTRIBUTION WIDTH 13.9 % 11.7-14.4 (BEAKER) (test code = 412) PLATELET COUNT (BEAKER) (test 221 K/CU MM 150-450 code = 756) MEAN PLATELET VOLUME (BEAKER) 10.2 fL 9.4-12.3 (test code = 754) NUCLEATED RED BLOOD CELLS 0 /100 WBC 0-0 (BEAKER) (test code = 413) NEUTROPHILS RELATIVE PERCENT 48 % (BEAKER) (test code = 429) LYMPHOCYTES RELATIVE PERCENT 32 % (BEAKER) (test code = 430) MONOCYTES RELATIVE PERCENT 16 % (BEAKER) (test code = 431) EOSINOPHILS RELATIVE PERCENT 4 % (BEAKER) (test code = 432) BASOPHILS RELATIVE PERCENT 1 % (BEAKER) (test code = 437) NEUTROPHILS ABSOLUTE COUNT 2.87 K/ L 1.56-6.13 (BEAKER) (test code = 670) LYMPHOCYTES ABSOLUTE COUNT 1.87 K/ L 1.18-3.74 (BEAKER) (test code = 414) MONOCYTES ABSOLUTE COUNT (BEAKER) 0.93 K/ L 0.24-0.36 H (test code = 415) EOSINOPHILS ABSOLUTE COUNT 0.22 K/ L 0.04-0.36 (BEAKER) (test code = 416) BASOPHILS ABSOLUTE COUNT (BEAKER) 0.05 K/ L 0.01-0.08 (test code = 417) IMMATURE GRANULOCYTES-RELATIVE 0 % 0-1 PERCENT (BEAKER) (test code = 6861)
[2019-11-11] MEDS ORDERED: FENTANYL CITR 100 MCG/2 ML ONE (10:06)
[2019-11-11] MEDS ORDERED: ONDANSETRON 4 MG/2 ML VIAL ONE (10:06)
[2019-11-11] MEDS ORDERED: NA CHLORIDE 0.9% 500 ML ONE (10:07)
[2019-11-11] MEDS ORDERED: NA CHLORIDE 0.9% 1,000 ML ONE (10:07)
[2019-11-11 10:10] LABS: ALT/SGPT 15 U/L (12-78); AST/SGOT 17 U/L (15-37); Albumin 2.9 g/dL (3.4-5.0); Alkaline Phosphatase 131 U/L (45-117); BUN Blood Urea Nitrogen 17 mg/dL (7-18); Bicarbonate 29 mmol/L (21-32); Bilirubin Direct 0.2 mg/dL (0-0.2); Bilirubin Total 0.5 mg/dL (0.2-1.0); Glucose Level 103 mg/dL (74-106); Magnesium 1.7 mg/dL (1.8-2.4); NT PRO-BNP 830 pg/mL (<450); Protein, Total 6.4 g/dL (6.4-8.2); Sodium Level 144 mmol/L (136-145); Troponin (Emerg Dept Use Only) < 0.02 ng/mL (0.0-0.045)
--- NOTE | 2019-11-11 10:17 | RAD REPORT ---
EXAM DESCRIPTION: CT - Head C Spine Cap Michael New - 11/11/2019 9:53 am CLINICAL HISTORY: Head and neck injury with chest and abdominal pain status post fall. Head and neck pain . TECHNIQUE: Computed axial tomography of the head and cervical spine was obtained Computed axial tomography of the chest, abdomen and pelvis was obtained. 100 cc Isovue-300 was given intravenously coronal and sagittal reconstruction was performed. All CT scans are performed using dose optimization technique as appropriate and may include automated exposure control or mA/KV adjustment according to patient size. COMPARISON: CT chest July 2019 FINDINGS: Right frontal scalp hematoma. An intracranial bleed is not seen. Moderate low-density area s within periventricular, deep and subcortical white matter likely ischemic changes secondary to smal l vessel disease The ventricles are normal in caliber. An extra-axial fluid collection is not noted. A cervical fracture is not seen. No dislocation is seen. A mediastinal hematoma is not noted. A pleural effusion is not present. A lung contusion is not seen. The liver, spleen, pancreas, adrenals, kidneys and bladder do not demonstrate a traumatic injury A left hip arthroplasty. Compression deformity L1 vertebral body appears chronic IMPRESSION: 1. No acute intracranial abnormality is seen 2. A cervical fracture is not visualized. If the patient continues have symptoms to suggest intracran ial/spinal cord pathology then MRI would be recommended. 3. No acute traumatic injury involving the chest, abdomen or pelvis is seen.
--- NOTE | 2019-11-11 10:53 | RAD REPORT ---
EXAM DESCRIPTION: RAD - Pelvis - 11/11/2019 10:46 am CLINICAL HISTORY: Pelvic pain status post injury FINDINGS: No acute fracture or dislocation Left hip arthroplasty with plates and screws left hemipelvis. Osteoporosis
--- NOTE | 2019-11-11 10:54 | RAD REPORT ---
EXAM DESCRIPTION: RAD - Hip Left 2 View - 11/11/2019 10:46 am CLINICAL HISTORY: Left hip pain status post injury FINDINGS: No acute fracture or dislocation Left hip arthroplasty with plates and screws left hemipelvis. Osteoporosis
--- NOTE | 2019-11-11 10:55 | RAD REPORT ---
EXAM DESCRIPTION: Jase Single View11/11/2019 10:46 am CLINICAL HISTORY: Chest pain COMPARISON: July 2019 FINDINGS: The lungs appear clear of acute infiltrate. The heart is normal size IMPRESSION: No acute abnormalities displayed
--- NOTE | 2019-11-11 10:57 | RAD REPORT ---
EXAM DESCRIPTION: RAD - Knee Left 2 View - 11/11/2019 10:46 am CLINICAL HISTORY: Left leg pain FINDINGS: Osteoporosis Plates, screws and knee prosthesis in place. Old distal femoral fracture No definite acute fracture seen. No dislocation
--- NOTE | 2019-11-11 10:58 | RAD REPORT ---
EXAM DESCRIPTION: [place] Left11/11/2019 10:46 am CLINICAL HISTORY: Left leg pain status post injury FINDINGS: Osteoporosis. No acute fracture is seen
--- NOTE | 2019-11-11 10:59 | RAD REPORT ---
EXAM DESCRIPTION: RAD - Shoulder Right 2 View - 11/11/2019 10:46 am CLINICAL HISTORY: Right shoulder pain FINDINGS: Osteoporosis. No fracture or dislocation is seen.
[2019-11-11 11:09] LABS: Urine Blood NEGATIVE (NEG); Urine Glucose NEGATIVE (NEG); Urine Protein NEGATIVE (NEG); Urine Specific Gravity <1.005 (1.005-1.030); Urine pH 6.5 (5.0-7.0)
--- NOTE | 2019-11-11 11:18 | EDPHYS ---
Physician Documentation [facility] Name: Jeannie Cobb Age: 84 yrs Sex: Female : 1935 Arrival Date: 11/11/2019 Time: 09:35 Bed 4 Private MD: ED Physician Vicente Wright HPI: 11/10 09:38 This 84 yrs old Female presents to ER via Unassigned with complaints of Fall svetlana Injury. 09:38 The patient or guardian reports pain, swelling, tenderness. The complaints affect the [facility] forehead, right eye and left eye. Context of injury: The problem was sustained at home, resulted from a fall. Onset: The symptoms/episode began/occurred just prior to arrival. Associated signs and symptoms: Loss of consciousness: This patient did not experience any loss of consciousness. The patient or guardian complains of decreased range of motion, pain, swelling, tenderness. right shoulder. Context: The problem was sustained at home. Modifying factors: the symptoms are alleviated by remaining still, The symptoms are aggravated by movement. Associated signs and symptoms: Pertinent positives: abdominal pain. Historical: - Allergies: 09:43 Codeine; tw2 - Home Meds: 09:43 Lexapro Oral [Active]; Eliquis Oral [Active]; Hydroxyzine Oral [Active]; Atenolol Oral tw2 [Active]; - PMHx: 09:43 Atrial Fib; Hypertension; tw2 - Immunization history: Last tetanus immunization: unknown. - Family history:: not pertinent. - Social history:: Smoking status: . ROS: 09:38 Constitutional: Negative for fever, chills, and weight loss, Eyes: Negative for injury, svetlana pain, redness, and discharge, ENT: Negative for injury, pain, and discharge, Neck: Negative for injury, pain, and swelling, Cardiovascular: Negative for chest pain, palpitations, and edema, Respiratory: Negative for shortness of breath, cough, wheezing, and pleuritic chest pain, Back: Negative for injury and pain, : Negative for injury, bleeding, discharge, and swelling, Skin: Negative for injury, rash, and discoloration, Neuro: Negative for headache, weakness, numbness, tingling, and seizure, Psych: Negative for depression, anxiety, suicide ideation, homicidal ideation, and hallucinations, Allergy/Immunology: Negative for hives, rash, and allergies, Endocrine: Negative for neck swelling, polydipsia, polyuria, polyphagia, and marked weight changes. 09:38 Abdomen/GI: Positive for abdominal pain, of the right upper quadrant, left upper quadrant, right lower quadrant and left lower quadrant. 09:38 MS/extremity: Positive for decreased range of motion, pain, of the right arm and left leg. Exam: 09:38 Constitutional: This is a well developed, well nourished patient who is awake, alert, svetlana and in no acute distress. Eyes: Pupils equal round and reactive to light, extra-ocular motions intact. Lids and lashes normal. Conjunctiva and sclera are non-icteric and not injected. Cornea within normal limits. Periorbital areas with no swelling, redness, or edema. ENT: Nares patent. No nasal discharge, no septal abnormalities noted. Tympanic membranes are normal and external auditory canals are clear. Oropharynx with no redness, swelling, or masses, exudates, or evidence of obstruction, uvula midline. Mucous membranes moist. Neck: Trachea midline, no thyromegaly or masses palpated, and no cervical lymphadenopathy. Supple, full range of motion without nuchal rigidity, or vertebral point tenderness. No Meningismus. Chest/axilla: Normal chest wall appearance and motion. Nontender with no deformity. No lesions are appreciated. Cardiovascular: Regular rate and rhythm with a normal S1 and S2. No gallops, murmurs, or rubs. Normal PMI, no JVD. No pulse deficits. Respiratory: Lungs have equal breath sounds bilaterally, clear to auscultation and percussion. No rales, rhonchi or wheezes noted. No increased work of breathing, no retractions or nasal flaring. Back: No spinal tenderness. No costovertebral tenderness. Full range of motion. Skin: Warm, dry with normal turgor. Normal color with no rashes, no lesions, and no evidence of cellulitis. Neuro: Awake and alert, GCS 15, oriented to person, place, time, and situation. Cranial nerves II-XII grossly intact. Motor strength 5/5 in all extremities. Sensory grossly intact. Cerebellar exam normal. Normal gait. Psych: Awake, alert, with orientation to person, place and time. Behavior, mood, and affect are within normal limits. 09:38 Head/face: Noted is contusion, hematoma, swelling, that is moderate, of the forehead, right eye and left eye. 09:38 Abdomen/GI: Inspection: distension, Bowel sounds: active, Palpation: mild abdominal tenderness, in all quadrants. 09:38 Musculoskeletal/extremity: Extremities: noted in the anterior aspect of right shoulder and posterior aspect of right shoulder: decreased ROM, pain, ROM: limited active range of motion due to pain, limited passive range of motion due to pain, Circulation is intact in all extremities. Sensation intact. Compartment Syndrome exam of affected extremity: is normal. left hip pain, knee pain and left tib fib pain. Vital Signs: 09:30 BP 139 / 94; Pulse 69; Resp 17; Temp 98.2(O); Pulse Ox 100% on R/A; tw2 10:40 BP 137 / 120; Pulse 83; Resp 19; Pulse Ox 99% on R/A; tw2 11:07 BP 113 / 92; Pulse 83; Resp 16; Pulse Ox 99% on R/A; tw2 11:12 Weight 99.79 kg (R); tw2 12:07 BP 121 / 65; Pulse 86; Resp 17; Pulse Ox 96% on R/A; tw2 [place] Coma Score: 09:30 Eye Response: spontaneous(4). Verbal Response: oriented(5). Motor Response: obeys ss commands(6). Total: 15. 09:30 Eye Response: spontaneous(4). Verbal Response: oriented(5). Motor Response: obeys ss commands(6). Total: 15. 09:42 Eye Response: spontaneous(4). Verbal Response: oriented(5). Motor Response: obeys svetlana commands(6). Total: 15. 10:40 Eye Response: spontaneous(4). Verbal Response: oriented(5). Motor Response: obeys tw2 commands(6). Total: 15. 11:07 Eye Response: spontaneous(4). Verbal Response: oriented(5). Motor Response: obeys tw2 commands(6). Total: 15. Trauma Score (Adult): 09:30 Eye Response: spontaneous(1); Verbal Response: oriented(1); Motor Response: obeys ss commands(2); Systolic BP: > 89 mm Hg(4); Respiratory Rate: 10 to 29 per min(4); [place] Score: 15; Trauma Score: 12 09:30 Eye Response: spontaneous(1); Verbal Response: oriented(1); Motor Response: obeys ss commands(2); Systolic BP: > 89 mm Hg(4); Respiratory Rate: 10 to 29 per min(4); [place] Score: 15; Trauma Score: 12 10:40 Eye Response: spontaneous(1); Verbal Response: oriented(1); Motor Response: obeys tw2 commands(2); Systolic BP: > 89 mm Hg(4); Respiratory Rate: 10 to 29 per min(4); [place] Score: 15; Trauma Score: 12 11:07 Eye Response: spontaneous(1); Verbal Response: oriented(1); Motor Response: obeys tw2 commands(2); Systolic BP: > 89 mm Hg(4); Respiratory Rate: 10 to 29 per min(4); [place] Score: 15; Trauma Score: 12 MDM: 09:35 Patient medically screened. svetlana 09:42 Differential diagnosis: Contusion of Hematoma on Laceration of Concussion DJD. [facility] Differential diagnosis: abrasion, closed head injury, contusion, fracture, laceration, multiple trauma, sprain, strain. Data reviewed: vital signs, nurses notes, lab test result(s), EKG, radiologic studies, CT scan, plain films. Data interpreted: child monitor: rate is 69 beats/min, rhythm is regular, Pulse oximetry: on room air is 100 %. Test interpretation: by ED physician or midlevel provider: ECG, plain radiologic studies. Counseling: I had a detailed discussion with the patient and/or guardian regarding: the historical points, exam findings, and any diagnostic results supporting the discharge/admit diagnosis, lab results, radiology results. 11:13 ED course: pt explained all results, will follow up , fall precautions given. [facility] 11/10 09:37 Order name: Basic Metabolic Panel; Complete Time: 11:10 svetlana 11/10 09:37 Order name: CBC with Diff; Complete Time: 11:10 svetlana 11/10 09:37 Order name: LFT's; Complete Time: 11:10 svetlana 11/10 09:37 Order name: Magnesium; Complete Time: 11:10 [facility] 11/10 09:37 Order name: NT PRO-BNP; Complete Time: 11:10 [facility] 11/10 09:37 Order name: Troponin (emerg Dept Use Only); Complete Time: 11:10 [facility] 11/10 09:37 Order name: XRAY Chest (1 view); Complete Time: 11:10 [facility] 11/10 09:37 Order name: Pelvis XRAY; Complete Time: 11:10 [facility] 11/10 09:37 Order name: Hip Left 2 View XRAY; Complete Time: 11:10 [facility] 11/10 09:37 Order name: Tib Fib Left XRAY; Complete Time: 11:10 [facility] 11/10 09:37 Order name: Shoulder Right (2 View) XRAY; Complete Time: 11:10 [facility] 11/10 09:37 Order name: CT Traumagram (Head C Spine CAP W Con); Complete Time: 11:10 [facility] 11/10 09:52 Order name: Urine Dipstick--Ancillary (enter results); Complete Time: 11:10 11/10 09:37 Order name: EKG; Complete Time: 09:38 [facility] 11/10 09:37 Order name: Cardiac monitoring; Complete Time: 09:39 [facility] 11/10 09:37 Order name: EKG - Nurse/Tech; Complete Time: 09:42 [facility] 11/10 09:37 Order name: IV Saline Lock; Complete Time: 09:39 [facility] 11/10 09:37 Order name: Labs collected and sent; Complete Time: 09:39 [facility] 11/10 09:37 Order name: O2 Per Protocol; Complete Time: 09:39 [facility] 11/10 09:37 Order name: O2 Sat Monitoring; Complete Time: 09:39 [facility] 11/10 09:44 Order name: Ice pack; Complete Time: 09:53 [facility] 11/10 10:45 Order name: Knee Left 2 View; Complete Time: 11:10 EDMS Administered Medications: 10:45 Drug: NS 0.9% 500 ml Route: IV; Rate: bolus; Site: right antecubital; rb1 11:16 Follow up: Response: No adverse reaction; IV Status: Completed infusion; IV Intake: tw2 500ml 10:45 Drug: NS 0.9% 1000 ml Route: IV; Rate: 125 ml/hr; Site: right antecubital; rb1 12:30 Follow up: Response: No adverse reaction; IV Status: Order to discontinue infusion tw2 10:45 Drug: fentaNYL (PF) 25 mcg Route: IVP; Site: right antecubital; rb1 11:16 Follow up: Response: No adverse reaction; Pain is decreased; RASS: Alert and Calm (0) tw2 10:45 Drug: Zofran (Ondansetron) 4 mg Route: IVP; Site: right antecubital; rb1 11:16 Follow up: Response: No adverse reaction tw2 11:15 Drug: Magnesium Sulfate 1 grams Route: IVPB; Infused Over: 1 hrs; Site: right tw2 antecubital; 12:20 Follow up: Response: No adverse reaction; IV Status: Completed infusion tw2 Disposition: 11/11/19 11:17 Discharged to Home. Impression: Fall due to bumping against object, Superficial injury of head, Strain of muscle(s) and tendon(s) of the rotator cuff of right shoulder, Contusion of left knee, Contusion of left hip, Atrial fibrillation and flutter. - Condition is Stable. - Discharge Instructions: Head Injury, Adult, Shoulder Pain, Knee Pain, Shoulder Pain, Bgfs-pk-Esmf, Fall Prevention in the Home, Mgeg-my-Fvlm, Head Injury, Adult, Wkup-bo-Vwsy, Knee Pain, Sabq-us-Exhm. - Prescriptions for Tylenol 325 mg Oral Tablet - take 2 tablet by ORAL route every 6 hours as needed; 1 bottle. Skelaxin 800 mg Oral Tablet - take 1 tablet by ORAL route every 8 hours As needed; 30 tablet. - Medication Reconciliation Form, Thank You Letter, Antibiotic Education, Prescription Opioid Use form. - Follow up: Private Physician; When: 2 - 3 days; Reason: Recheck today's complaints, Continuance of care, Re-evaluation by your physician. - Problem is new. - Symptoms have improved. Signatures: Dispatcher [employer] [facility] Vicente Wright MD MD cha Barber, Rebecca RN RN rb1 Roz Woodall RN RN tw2 Corrections: (The following items were deleted from the chart) 10:45 09:39 Knee Left 3 View+RAD.RAD.BRZ ordered. [facility] 11:22 11:17 11/11/2019 11:17 Discharged to Home. Impression: Fall due to bumping against svetlana object; Superficial injury of head; Strain of muscle(s) and tendon(s) of the rotator cuff of right shoulder; Contusion of left knee; Contusion of left hip. Condition is Stable. Forms are Medication Reconciliation Form, Thank You Letter, Antibiotic Education, Prescription Opioid Use. Follow up: Private Physician; When: 2 - 3 days; Reason: Recheck today's complaints, Continuance of care, Re-evaluation by your physician. Problem is new. Symptoms have improved. [facility] 11:29 11:22 11/11/2019 11:17 Discharged to Home. Impression: Fall due to bumping against tw2 object; Superficial injury of head; Strain of muscle(s) and tendon(s) of the rotator cuff of right shoulder; Contusion of left knee; Contusion of left hip; Atrial fibrillation and flutter. Condition is Stable. Discharge Instructions: Head Injury, Adult, Fall Prevention in the Home, Jatw-sb-Yriw, Head Injury, Adult, Meld-wf-Emkq, Shoulder Pain, Knee Pain, Shoulder Pain, Pcgi-oz-Syqx, Knee Pain, Nnjo-fj-Czfg. Prescriptions for Tylenol 325 mg Oral Tablet - take 2 tablet by ORAL route every 6 hours as needed; 1 bottle, Skelaxin 800 mg Oral Tablet - take 1 tablet by ORAL route every 8 hours As needed; 30 tablet. and Forms are Medication Reconciliation Form, Thank You Letter, Antibiotic Education, Prescription Opioid Use. Follow up: Private Physician; When: 2 - 3 days; Reason: Recheck today's complaints, Continuance of care, Re-evaluation by your physician. Problem is new. Symptoms have improved. [facility] 12:32 11:29 11/11/2019 11:17 Discharged to Home. Impression: Fall due to bumping against tw2 object; Superficial injury of head; Strain of muscle(s) and tendon(s) of the rotator cuff of right shoulder; Contusion of left knee; Contusion of left hip; Atrial fibrillation and flutter. Condition is Stable. Discharge Instructions: Head Injury, Adult, Fall Prevention in the Home, Gpcp-eg-Bgck, Head Injury, Adult, Iwlv-iu-Garc, Shoulder Pain, Knee Pain, Shoulder Pain, Oymn-gq-Jqaf, Knee Pain, Yjvm-lz-Pogm. Prescriptions for Tylenol 325 mg Oral Tablet - take 2 tablet by ORAL route every 6 hours as needed; 1 bottle, Skelaxin 800 mg Oral Tablet - take 1 tablet by ORAL route every 8 hours As needed; 30 tablet. and Forms are Medication Reconciliation Form, Thank You Letter, Antibiotic Education, Prescription Opioid Use. Follow up: Private Physician; When: 2 - 3 days; Reason: Recheck today's complaints, Continuance of care, Re-evaluation by your physician. Problem is new. Symptoms have improved. tw2
--- NOTE | 2019-11-11 11:18 | ER ---
Nurse's Notes [facility] Name: Jeannie Cobb Age: 84 yrs Sex: Female : 1935 Arrival Date: 11/11/2019 Time: 09:35 Bed 4 Private MD: Diagnosis: Fall due to bumping against object;Superficial injury of head;Strain of muscle(s) and tendon(s) of the rotator cuff of right shoulder;Contusion of left knee;Contusion of left hip;Atrial fibrillation and flutter Presentation: 11/10 09:30 Chief complaint: EMS states: pt at home in bathroom, her walker moved and she fell face tw2 first onto the ground, lots of facial swelling and bruising noted to face c/o LEFT hip pain, has had hx of multiple surgeries, hx of afib htn, and is on Elquis, vs stable a\T\o x4. Coronavirus screen: At this time, the client does not indicate any symptoms associated with coronavirus-19. Ebola Screen: Patient denies travel to an Ebola-affected area in the 21 days before illness onset. Initial Sepsis Screen: Does the patient meet any 2 criteria? No. Patient's initial sepsis screen is negative. Does the patient have a suspected source of infection? No. Patient's initial sepsis screen is negative. Risk Assessment: Do you want to hurt yourself or someone else? Patient reports no desire to harm self or others. Note Dr. Wright at bedside at this time. Onset of symptoms was November 11, 2019. 09:30 Method Of Arrival: EMS: [facility] tw2 09:30 Acuity: ETIENNE 3 tw2 09:30 Mechanism of Injury: Fall from standing position. Trauma event details: Injury occurred tw2 in the [facility]. 11:00 Care prior to arrival: None. tw2 Triage Assessment: 09:35 General: Appears uncomfortable, obese, Behavior is cooperative, appropriate for age. tw2 Pain: Complains of pain in face and left hip. Trauma Activation: Alert Physician: ED Physician; Name: ; Notified At: ; Arrived At: Physician: General Surgeon; Name: ; Notified At: ; Arrived At: Physician: Radiology; Name: ; Notified At: ; Arrived At: Physician: Respiratory; Name: ; Notified At: ; Arrived At: Physician: Lab; Name: ; Notified At: ; Arrived At: Historical: - Allergies: :43 Codeine; tw2 - Home Meds: :43 Lexapro Oral [Active]; Eliquis Oral [Active]; Hydroxyzine Oral [Active]; Atenolol Oral tw2 [Active]; - PMHx: :43 Atrial Fib; Hypertension; tw2 - Immunization history: Last tetanus immunization: unknown. - Family history:: not pertinent. - Social history:: Smoking status: . Screenin:44 Abuse screen: Denies threats or abuse. Nutritional screening: No deficits noted. tw2 Tuberculosis screening: No symptoms or risk factors identified. Fall Risk Secondary diagnosis (15 points) impaired mobility. Primary Survey: : NO uncontrolled hemorrhage observed. A: The patient is alert. Airway: patent, No ss supplemental oxygen in use on arrival. Oral cavity: clear, Trachea midline. Breathing/Chest: Respiratory pattern: regular, Respiratory effort: spontaneous, unlabored, Breath sounds: clear, Chest inspection: symmetrical rise and fall of the chest. Circulation: Pulses: palpable right radial artery, right dorsalis pedis artery, left radial artery and left dorsalis pedis artery. Skin color: pink. Disability Alert. Exposure/Environment: All clothing and personal items were removed. Forensic evidence collection is not deemed to be indicated at this time. Items placed in patient belonging bag. There is no evidence of uncontrolled external bleeding. Obvious injury(ies) are noted at this time: bruising and swelling noted to R side of forehead. Small area of bruising and redness noted to bilateral knees. 10:49 Reassessment Airway Airway Patent Oxygen No O2 Oral cavity Clear Trachea Midline ss Breathing/Chest Respiratory pattern Regular Respiratory effort Spontaneous Unlabored Breath sounds Clear Chest inspection Symmetrical Circulation Pulses Palpable Color [place] Temperature Warm Disability Alert. Secondary Survey: : HEENT: Head Other moderate bruising and swelling noted to R side of forehead. No ss bleeding noted at this time. Nose: clear Throat: No injury or deformity noted. Gastrointestinal: No deficits noted. Abdomen is soft, Bowel sounds present in all quadrants. Palpation No deficit noted. : No deficits noted. No signs and/or symptoms were reported regarding the genitourinary system. Musculoskeletal:. Assessment: 09:30 General: Appears uncomfortable, Behavior is calm, cooperative, Denies fever, feeling ss ill, fatigue, chills. Pain: Complains of pain in R side of forehead, R knee, and back Pain currently is 10 out of 10 on a pain scale. Quality of pain is described as aching, Pain began suddenly, Is continuous, Aggravated by repositioning, Noted to be grimacing. Neuro: Level of Consciousness is awake, alert, obeys commands, Oriented to person, place, time, situation, Ortho/Prosthetic Aide are equal bilaterally Speech is normal, Pupils are PERRLA. EENT: Nares are clear Oral mucosa is moist. Throat is clear. Cardiovascular: Denies chest pain, lightheadedness, Pulses are palpable in right radial artery, right dorsalis pedis artery, left radial artery and left dorsalis pedis artery. Respiratory: Airway is patent Respiratory effort is even, unlabored, Respiratory pattern is regular, symmetrical, Denies cough, shortness of breath. GI: Abdomen is non-distended, Abd is soft and non tender X 4 quads. Reports nausea, Patient currently denies abdominal pain, vomiting. : No signs and/or symptoms were reported regarding the genitourinary system. Derm: Skin is dry, Skin temperature is warm Bruising that is dark purple bruising noted to R side of forehead, small bruising and redness, quarter in size noted to bilateral knees . Musculoskeletal: Swelling present in right side of forehead. 10:01 Reassessment: pt in imaging at this time. tw2 10:30 Reassessment: pt in imaging at this time, not available for vs at this time. tw2 10:45 Reassessment: Back from CT. GCS 15. ss 11:07 Reassessment: Patient appears in no apparent distress at this time. Patient and/or tw2 family updated on plan of care and expected duration. Pain level reassessed. Patient is alert, oriented x 3, equal unlabored respirations, skin warm/dry/pink. 11:23 Reassessment: provider at bedside going over results at this time. tw2 12:18 Reassessment: Patient appears in no apparent distress at this time. Patient and/or tw2 family updated on plan of care and expected duration. Pain level reassessed. Patient is alert, oriented x 3, equal unlabored respirations, skin warm/dry/pink. Vital Signs: 09:30 BP 139 / 94; Pulse 69; Resp 17; Temp 98.2(O); Pulse Ox 100% on R/A; tw2 10:40 BP 137 / 120; Pulse 83; Resp 19; Pulse Ox 99% on R/A; tw2 11:07 BP 113 / 92; Pulse 83; Resp 16; Pulse Ox 99% on R/A; tw2 11:12 Weight 99.79 kg (R); tw2 12:07 BP 121 / 65; Pulse 86; Resp 17; Pulse Ox 96% on R/A; tw2 [place] Coma Score: 09:30 Eye Response: spontaneous(4). Verbal Response: oriented(5). Motor Response: obeys ss commands(6). Total: 15. 09:30 Eye Response: spontaneous(4). Verbal Response: oriented(5). Motor Response: obeys ss commands(6). Total: 15. 09:42 Eye Response: spontaneous(4). Verbal Response: oriented(5). Motor Response: obeys svetlana commands(6). Total: 15. 10:40 Eye Response: spontaneous(4). Verbal Response: oriented(5). Motor Response: obeys tw2 commands(6). Total: 15. 11:07 Eye Response: spontaneous(4). Verbal Response: oriented(5). Motor Response: obeys tw2 commands(6). Total: 15. Trauma Score (Adult): 09:30 Eye Response: spontaneous(1); Verbal Response: oriented(1); Motor Response: obeys ss commands(2); Systolic BP: > 89 mm Hg(4); Respiratory Rate: 10 to 29 per min(4); [place] Score: 15; Trauma Score: 12 09:30 Eye Response: spontaneous(1); Verbal Response: oriented(1); Motor Response: obeys ss commands(2); Systolic BP: > 89 mm Hg(4); Respiratory Rate: 10 to 29 per min(4); [place] Score: 15; Trauma Score: 12 10:40 Eye Response: spontaneous(1); Verbal Response: oriented(1); Motor Response: obeys tw2 commands(2); Systolic BP: > 89 mm Hg(4); Respiratory Rate: 10 to 29 per min(4); [place] Score: 15; Trauma Score: 12 11:07 Eye Response: spontaneous(1); Verbal Response: oriented(1); Motor Response: obeys tw2 commands(2); Systolic BP: > 89 mm Hg(4); Respiratory Rate: 10 to 29 per min(4); [place] Score: 15; Trauma Score: 12 ED Course: 09:35 Patient arrived in ED. svetlana 09:35 Vicente Wright MD is Attending Physician. svetlana 09:35 Placed in gown. Bed in low position. Call light in reach. quality assurance monitor chassis on. Pulse ox tw2 on. NIBP on. Warm blanket given. 09:37 Danelle Hill, COLBY is Primary Nurse. ss 09:40 Inserted saline lock: 20 gauge in right antecubital area, using aseptic technique. tw2 Blood collected. 09:41 Triage completed. tw2 09:41 Arm band placed on. tw2 09:42 Patient maintains SpO2 saturation greater than 95% on room air. Thermoregulation: warm tw2 blanket given to patient. 09:53 CT Traumagram (Head C Spine CAP W Con) In Process Unspecified. EDMS 10:46 XRAY Chest (1 view) In Process Unspecified. EDMS 10:46 Pelvis XRAY In Process Unspecified. EDMS 10:46 Hip Left 2 View XRAY In Process Unspecified. EDMS 10:46 Tib Fib Left XRAY In Process Unspecified. EDMS 10:46 Shoulder Right (2 View) XRAY In Process Unspecified. EDMS 10:46 Knee Left 2 View In Process Unspecified. EDMS 10:56 EKG done, by ED staff, reviewed by Vicente Wright MD. em1 11:33 Awaiting: awaiting for completion of IV medication PRIOR to discharge, pts daughter is tw2 in lobby waiting on pt and notified per pts request. 12:31 No provider procedures requiring assistance completed. IV discontinued, intact, tw2 bleeding controlled, No redness/swelling at site. Pressure dressing applied. Administered Medications: 10:45 Drug: NS 0.9% 500 ml Route: IV; Rate: bolus; Site: right antecubital; rb1 11:16 Follow up: Response: No adverse reaction; IV Status: Completed infusion; IV Intake: tw2 500ml 10:45 Drug: NS 0.9% 1000 ml Route: IV; Rate: 125 ml/hr; Site: right antecubital; rb1 12:30 Follow up: Response: No adverse reaction; IV Status: Order to discontinue infusion tw2 10:45 Drug: fentaNYL (PF) 25 mcg Route: IVP; Site: right antecubital; rb1 11:16 Follow up: Response: No adverse reaction; Pain is decreased; RASS: Alert and Calm (0) tw2 10:45 Drug: Zofran (Ondansetron) 4 mg Route: IVP; Site: right antecubital; rb1 11:16 Follow up: Response: No adverse reaction tw2 11:15 Drug: Magnesium Sulfate 1 grams Route: IVPB; Infused Over: 1 hrs; Site: right tw2 antecubital; 12:20 Follow up: Response: No adverse reaction; IV Status: Completed infusion tw2 Intake: 11:16 IV: 500ml; Total: 500ml. tw2 11:49 PO: 0ml; Total: 500ml. tw2 Outcome: 11:17 Discharge ordered by MD. mota 11:29 Patient left the ED. tw2 11:49 Patient's length of stay in the Emergency Department was greater than 2 hours. results tw2 \T\ IV medications ordered and infusingPatient's length of stay extended due to 12:31 Discharged to home via wheelchair, with family. tw2 12:31 Condition: stable 12:31 Discharge instructions given to patient, family, Instructed on discharge instructions, follow up and referral plans. medication usage, Demonstrated understanding of instructions, follow-up care, medications, Prescriptions given X 2. 12:32 Patient left the ED. tw2 Signatures: Dispatcher [employer] EDVicente Cole MD MD cha Martinez, Eric em1 Danelle Hill RN RN ss Patt Hall RN RN rb1 Roz Woodall RN RN tw2 Corrections: (The following items were deleted from the chart) 11:29 11:28 Reassessment: Patient appears in no apparent distress at this time. Patient tw2 and/or family updated on plan of care and expected duration. Pain level reassessed. Patient is alert, oriented x 3, equal unlabored respirations, skin warm/dry/pink. pt sitting up active, playful, and talking tw2
[2019-11-11] MEDS ORDERED: MAGNESIUM SULFATE 1 gm IVPB 1 GM/100 ML BAG IV ONE (11:25)
[2019-11-11 13:08] VITALS: TEMP 98.2
[2019-11-11 13:14] VITALS: BP 121/65; O2SAT 96
--- NOTE | 2019-11-12 05:53 | EKG ---
Test Date: 2019-11-11 Test Time: 10:51:03 Coat Repair Inspector: JAYMIE MEASUREMENT RESULTS: Intervals: Rate: 91 AK: QRSD: 94 QT: 322 QTc: 396 [place]: P: AK: QRS: 7 T: 162 INTERPRETIVE STATEMENTS: Atrial fibrillation Possible Anterior infarct, age undetermined Abnormal ECG Compared to ECG 07/30/2019 16:24:50 No significant changes Electronically Signed On 11-12-19 05:50:17 CDT by Cole Milton
== END 2019-11-11 12:32 | disposition home or self-care (01) ==
LOC: ER 09:30
DX: S46.011A Strain of muscle(s) and tendon(s) of the rotator cuff of right shoulder, initial encounter (principal); S80.02XA Contusion of left knee, initial encounter; S70.02XA Contusion of left hip, initial encounter; I48.91 Unspecified atrial fibrillation; I48.92 Unspecified atrial flutter; I10 Essential (primary) hypertension; W18.00XA Striking against unspecified object with subsequent fall, initial encounter; Y93.01 Activity, walking, marching and hiking; Y92.009 Unspecified place in unspecified non-institutional (private) residence as the place of occurrence of the external cause; Z79.01 Long term (current) use of anticoagulants; Z88.5 Allergy status to narcotic agent
CPT/HCPCS: 93005; 85025; 80048; 36415; 83735; 82565; 80076; 81003; 84484; 83880; 70450; 72125; 71260; 74177; 71045; 72170; 73502; 73030; 73560; 73590; Q9967; J3010; J3475; J7040; J7030; J2405; 96361; 96365; 96375; 99285; G0390

== ENCOUNTER 2020-03-01 17:10 | Emergency (ER) | payer OTHER ==
--- OUTSIDE RECORDS SUMMARY | 2020-03-01 17:13 | XMS REPORT ---
:1935 Author Organization [facility] Address [address] [place] [address] Care Team Providers Name Role Phone Horan Unavailable [phone] PROBLEMS Type Condition ICD9-CM [id number] Onset Condition SNOMED Code Notes Code Code Dates Status Problem Depression F32.9 Active 82460815 Problem HTN I10 Active 27095618 (hypertension) Problem Diverticulitis K57.92 Active 10057423 Problem Stroke I63.9 Active 253208748 Problem Abnormal heart I49.9 Active 309532694 rhythm Problem Urinary R32 Active 235646758 incontinence, unspecified type Problem History of colon Z85.038 Active 541863195 cancer Problem History of Z90.49 Active 228339488 partial colectomy Problem Heart disease I51.9 Active 50752734 Problem Cancer C80.1 Active 64369349 Problem Generalized F41.1 Active 27742142 anxiety disorder Problem Gallstones K80.20 Active 857744706 Problem Current moderate F32.1 Active 31184081 episode of major depressive disorder without prior episode Problem Non-seasonal J30.89 Active 10626215 allergic rhinitis, unspecified trigger Problem Circulation I99.9 Active 13656899 problem Problem Dysphagia, R13.10 Active 33552695 unspecified type Problem Atrial I48.91 Active 99882064 fibrillation, unspecified type Problem 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 Problem Allergic rhinitis J30.9 Active 36542021 Problem Hypomagnesemia E83.42 Active 974049571 Problem Anxiety F41.9 Active 74380939 Problem Essential I10 Active 34595559 hypertension Problem Aortic valve I35.0 Active 61278732 stenosis, etiology of cardiac valve disease unspecified Problem 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 [address], [place] [address] IMMUNIZATIONS No Information SOCIAL HISTORY Tobacco Use: Social History Observation Description Date Details (start date - stop date) Former Smoker Sex Assigned At : Social History Observation Description Sex Assigned At Unknown PHQ9 Question Answer Notes Little interest or pleasure in doing things Nearly every day Feeling down, depressed, or hopeless More than half the days Trouble falling or staying asleep or sleeping too Nearly ashley ry day much Feeling tired or having little energy Nearly every day Poor appetite or overeating More than half the days Feeling bad about yourself, or that you are a Not at all failure, or have let yourself or your family down Trouble concentrating on things, such as reading More than h usp the days the newspaper or watching television Moving or speaking so slowly that other people Not at all could have noticed; or the opposite, being so fidgety or restless that you have been moving around a lot more than usual Total Score 15 Interpretation Moderately severe depression Thoughts that you would be better off or of Not at all hurting yourself in some way Alcohol Screen Question Answer Notes Did you have a drink containing alcohol in the past Yes year? Points 1 Interpretation Negative How often did you have 6 or more drinks on one Never (0 poin ts) occasion in the past year? How many drinks did you have on a typical day when 1 or 2 (0 points) you were drinking in the past year? How often did you have a drink containing alcohol in Monthly or less (1 point) the past year? Tobacco Use/Smoking Question Answer Notes Are you a former smoker Additional Findings: Tobacco Non-User Current non-smoker REASON FOR REFERRAL No Information VITAL SIGNS No information MEDICATIONS Medication SIG (Take, Route, Start Date End Date Status Frequency, Duration) Eliquis 5 MG 1 tablet Orally BID for 90 A ctive days Citalopram Hydrobromide 20 1 tablet Orally Once a day Active MG for 90 days Tolterodine Tartrate 2 MG 1 tablet Orally Twice a Not-Taking day HydrOXYzine HCl 10 MG 1 tablet Orally Once a day Active for 90 days Myrbetriq 50 MG 1 tablet Orally Once a day Active for 90 days Atenolol 25 MG 1 tablet Orally Once a day Active for 90 days PROCEDURES No Information RESULTS No Results REASON FOR VISIT recert MEDICAL (GENERAL) HISTORY Type Description Date Medical History Current moderate episode of major depres sive disorder without prior episode Medical History Atrial fibrillation, unspecified type Medical History Generalized anxiety disorder Medical History Essential hypertension Medical History History of colon cancer Medical History History of partial colectomy Medical History Non-seasonal allergic rhinitis, unspecif ied trigger Medical History Urinary incontinence, unspecified type Medical History Aortic valve stenosis, etiology of cardi ac valve disease unspecified Medical History Dysphagia, unspecified type Surgical History gallbladder Surgical History colon resection Surgical History appendix Surgical History left hip Surgical History left femur Goals Section No Information Health Concerns No Information MEDICAL EQUIPMENT No Information MENTAL STATUS No Information FUNCTIONAL STATUS No Information ASSESSMENTS No Information PLAN OF TREATMENT Medication Medication Name Sig Start Date Stop Date Eliquis 5 MG 1 tablet Orally BID for 90 days Myrbetriq 50 MG 1 tablet Orally Once a day for 90 days Atenolol 25 MG 1 tablet Orally Once a day for 90 days HydrOXYzine HCl 10 MG 1 tablet Orally Once a day for 90 days Citalopram Hydrobromide 20 MG 1 tablet Orally Once a day for 90 days Insurance Providers Payer Name Payer Address Payer Insured Patient Coverage Cover age End Phone Name Relationship to Start Date Vishal e Insured [employer] [address] [address] [phone] Gracia self 2019 MEDICARE P[place] [address] [id number]
--- OUTSIDE RECORDS SUMMARY | 2020-03-01 17:13 | XMS REPORT | Continuity of Care Document ---
:1935 Author Organization [facility] t Address [address] [id number] Care Team Providers Name Role Phone Pcp MD Primary Care Physician Unavailable RONEL COOLEY Attending Clinician Unavailable Ronel Cooley MD Attending Clinician Michael GUDINO Attending Clinician Lila Velez MD Attending Clinician RONEL COOLEY Admitting Clinician Unavailable Payers Payer Name Policy Type Policy Effective Date Expiration Date Sour ce Number HUMANA - MEDICARE [id number] [address] [facility] CAREHUMANA 00:00:00 - Medical MEDICARE Center [id number] 020-PresentMaps Contracted Problems Condition Condition Condition Status Onset Resolution Last Treating Co mments Source Name Details Category Date Date Treatment Clinician Date DVT (deep 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[facility] - [facility] thrombosis 00:00: Me dical ) ) 00 Center Allergies, Adverse Reactions, Alerts Allergy Allergy Status Severity Reaction(s) Onset Inactive Treating Comm ents Source Name Type Date Date Clinician Codeine Drug Active Other (See Pt states [facility] Comments) 07-29 it makes [facility] - nce 00:00: her cra Medical 00 Center Codeine Adverse Active Info Not [facility] Sulfate Reaction Available [facility] Social History Social Habit Start Date Stop Date Quantity Comments Source History SDOH [facility] - [facility] Std Drinks Medica l Center History SDOH [facility] - Alcohol Binge Medical Andrew ter Sex Assigned At [facility] kes [facility] Tobacco use and 2019-07-31 2019-07-[address] [facility] [place] [facility] - exposure 00:00:00 00:00:00 [facility] Alcohol intake 2019-07-31 2019-07-[address] [facility] - 00:00:00 00:00:00 non-drinker of Medical Ce nter alcohol (finding) History SDOH 2019-07-30 2019-07-[address] [facility] - Alcohol Frequency 00:00:00 00:00:00 [facility] History of tobacco 1989-07-29 [facility] - use 00[facility]00 [facility] Smoking Status Start Date Stop Date Source Former smoker 2019-07-31 00:00:00 2019-07-31 00:00:00 [facility] Medications Ordered Filled Start Stop Current Ordering Indication Dosage Frequency Signature Comments Components Source Medication Medication Date Date Medication? Clinician (SIG) Name Name atenoloL Yes 25mg QD Take [address] (TENORMIN) 6-05 by mouth [facility] - 25 MG 14:04: daily. Medical tablet [address] [place] hydrOXYzine Yes 10mg Take [address] (ATARAX) 10 6-05 by mouth Luke s - MG tablet 14:04: as needed. Me dical [address] [place] citalopram Yes 20mg QD Take [address] (CELEXA) 20 6-05 by mouth Luke s - MG tablet 14:04: daily. Medica l [address] [place] apixaban 2020- No 5mg QD Take [address] (ELIQUIS) 5 6-05 06-05 by mouth [facility] es - mg Tab 11:30: 00:00 daily. Medical tablet 52 :00 Center apixaban 0 2020- No 5mg Q.5D Take [address] (ELIQUIS) 5 6-05 09-03 tablet (5 [place] [facility]es - mg Tab 00:00: 23:59 mg total) Medic al tablet 00 :00 by mouth 2 Center (two) times daily for 90 days. traMADoL 2020-0 2020- No 50mg Take [address] (ULTRAM) 50 6-05 06-15 tablet (50 L ukes - mg tablet 00:00: 23:59 mg total) Me dical 00 :00 by mouth Center every 8 (eight) hours as needed for Pain for up to 10 days. Max Daily Amount: 150 mg doxycycline 2019- No 100mg Take [address] (MONODOX) 6-05 06-10 capsule [facility] - 100 MG 00:00: 23:59 (100 mg Medical capsule 00 :00 total) by Center mouth every 12 (twelve) hours for 5 days. apixaban 2019- No 5mg Q.5D Take [address] (ELIQUIS) 5 6-05 06-05 tablet (5 [place] - mg Tab 00:00: 00:00 mg total) Medic al tablet 00 :00 by mouth 2 Center (two) times daily for 90 days. traMADoL 2019- No 50mg Take [address] [facility] (ULTRAM) 50 6-05 06-05 tablet (50 L ukes - mg tablet 00:00: 00:00 mg total) Me dical 00 :00 by mouth Center every 8 (eight) hours as needed for Pain for up to 10 days. Max Daily Amount: 150 mg doxycycline 2019- No 100mg Take [address] (MONODOX) 6-05 06-05 capsule [facility] - 100 MG 00:00: 00:00 (100 mg Medical capsule 00 :00 total) by Center mouth every 12 (twelve) hours for 5 days. HydrOXYzine HydrOXYzine Yes [place] 1 tablet [facility] [...] 2019- No [place] [address] [facility] 07-01 [facility] - 00:00 Mem[facility] :00 l Outpati ent Clinics Vital Signs Vital Name Observation Time Observation Value Comments Source Systolic blood 2019-08-01 07:25:00 104 mm[Hg] [facility] Diastolic blood 2019-08-01 07:25:00 50 mm[Hg] [facility] S [facility] Heart rate 2019-08-01 07:25:00 76 /min [facility] Body temperature 2019-08-01 07:25:00 36.78 [place]anca [facility] Respiratory rate 2019-08-01 07:25:00 18 /min [facility] Oxygen saturation in 2019-08-01 07:25:00 98 /min [facility] - Arterial blood by Medical Ce nter Pulse oximetry Body height 2019-07-30 21:45:00 170.2 cm [facility] Body weight 2019-07-30 21:45:00 99.791 kg [facility] BMI 2019-07-30 21:45:00 34.46 kg/m2 [facility] Procedures Procedure Date / Time Performed Performing Clinician [facility] RHYTHM STRIP - SCAN 2019-08-04 14:40:16 [facility] BASIC METABOLIC PANEL 2019-08-01 03:52:00 [facility] (7) [facility] HEPATIC FUNCTION PANEL 2019-08-01 03:52:00 [facility] MAGNESIUM 2019-08-01 03:52:00 [facility] PHOSPHORUS 2019-08-01 03:52:00 [facility] PREALBUMIN 2019-08-01 03:52:00 Niru Velez [facility] CBC W/PLT COUNT & AUTO 2019-08-01 03:52:00 [facility] URINE CULTURE 2019-07-31 14:53:00 Niru Velez [facility] URINALYSIS W/ REFLEX 2019-07-31 14:53:00 [facility]z [facility] URINE CULT[facility] BASIC METABOLIC PANEL 2019-07-31 05:12:00 [facility] (7) [facility] HEPATIC FUNCTION PANEL 2019-07-31 05:12:00 [facility] MAGNESIUM 2019-07-31 05:12:00 [facility] PHOSPHORUS 2019-07-31 05:12:00 [facility] FACTOR 5 LEIDEN PCR 2019-07-31 05:12:00 [facility] (THROMBOTIC RISK) [facility] TSH/FREE T4 IF INDICATED 2019-07-31 05:12:00 [facility] CBC W/PLT COUNT & AUTO 2019-07-31 05:12:00 [facility] Plan of Care Planned Activity Planned Date Details Comments Source Future Scheduled 2019-10-28 INFLUENZA VACCINE (#1) [facility] - Test 00:00:00 [code = INFLUENZA Medical Ce nter VACCINE (#1)] Future Scheduled 2019-02-26 Medicare IPPE (WELCOME C [facility] - Test 00:00:00 TO MEDICARE) [code = [facility] Medicare IPPE (WELCOME TO MEDICARE)] Future Scheduled 2001 PNEUMOCOCCAL 65+ YRS [facility] - Test 00:00:00 (1 of 1 - [facility] [id number] PCV13) [code = PNEUMOCOCCAL 65+ YRS (1 of 1 - [id number] PCV13)] Encounters Start End Encounter Admission Attending Care Care Encounter Source Date/Time Date/Time Type Type Clinicians Facility Department ID 2019-12-09 2019-12-09 Outpatient [facility] [id number] [facility] Outpati ent Clinics 2019-11-25 2019-11-25 Outpatient [facility] [id number] [facility] Clinics 2019-11-10 2019-11-10 Outpatient [facility] [id number] [facility]00 [facility] Outpati ent Clinics 2019-10-15 2019-10-15 [facility] [id number] 16:38:00 16:38:00 [place] [facility] - [facility] l Medicine Outpati ent Clinics 2019-10-08 2019-10-08 [facility] [id number] 16:14:00 16:14:00 [place] Primo1[facility] s - Press [facility] Medicine Outpati ent Clinics 2019-10-08 2019-10-08 [facility] [id number] 15:15:00 15:15:00 [place] Primo1D s - Press [facility] Medicine Outpati ent Clinics 2019-09-11 2019-09-11 [facility] [id number] 15:01:00 15:01:00 [place] Primo1D s [employer] [facility] Medicine Outpati ent Clinics 2019-08-21 2019-08-21 [facility] [id number] 09:48:00 09:48:00 t [place] Primo1D s - [facility] Medicine Outpati ent Clinics 2019-08-06 2019-08-06 [facility] [id number] 16:00:00 16:00:00 t [place] Primo[facility] s [employer] [facility] Medicine Outpati ent Clinics 2019-07-30 2019-07-30 [facility] [id number] 14:27:00 14:27:00 t [place] Primo1[facility] s [employer] [facility] Medicine Outpati ent Clinics 2019-07-29 2019-07-29 [facility] [id number] 11:45:00 11:45:00 t [place] Primo1[facility] s [employer] [facility] Medicine Outpati ent Clinics 2019-07-16 2019-07-16 [facility] [id number] 13:58:00 13:58:00 t [place] Primo1D s [employer] [facility] Medicine Outpati ent Clinics 2019-05-29 2019-05-29 [facility] [id number] 13:15:00 13:15:00 t [employer] [facility] Results Test Description Test Time Test Comments Results Result Comments Source Factor 5 Leiden PCR (thrombotic risk) 2019-08-05 11:59:00 Test Item Value Reference Range Interpretation Comme nts Factor V Leiden Mutation SEE BELOW RES ULT: FACTOR V LEIDEN (test code = 2116225) (R506Q ) VARIANT NOT DETECTED Interpretation (test code = SEE BELOW INTERPRETATION: This 0363023) individual is n egative (normal) for th e Factor V Leiden(R506Q) v ariant in the Factor V gene. Increased risk of thrombophili a can becaused by a variety of genetic and non-genetic fac tors not screened for by this assay. Laboratory test ing supervised and results mon itored by Kizzy Rojo MD, PhD, FAC, [facility]. MUTATION ANALYS IS:The Factor V Leiden (R506Q) mutation [NM 084475.2: c.160 1G>A (p.R534Q)] inthe Factor V gene [...] analytical perf ormance characteristics havebeen determined by [facility] Harley holland.It has not been cleared or approved by FDA. This assay has been validatedpursua nt to the CLIA regulations and is used for clinical purpos es. Health care providers, plea se contact your local [facility] genetic[facility] r or call [phone] ([phone]) for assistance withinterpretat ion of these results. DONELL (test code = DONELL) Performing Lab EZ [facility] [address] [place] [address] Aysha Waller MD, PhD, TIFF [facility] Center[facility]realbumin2020-06-05 05:37:00 Test Item Value Reference Range Interpretation Comments Prealbumin (test code = 10 mg/dL 14-45 L 03074-9) DONELL (test code = DONELL) Studio Operator ID - JENI Young Lab Interpretation (test Abnormal code = 61441-8) [facility]2020-06-05 05:37:00 Test Item Value Reference Range Interpretation Comments PREALBUMIN (BEAKER) (test code = 10 mg/dL 14-45 L 586) Studio Operator ID - JENI AGARWALasic metabolic [id number] 05:08:00 Test Item Value Reference Range Interpretation Comments Sodium (test code = 142 meq/L 046-806 1880-2) Potassium (test 3.9 meq/L 3.5-5.1 code = 2823-3) Chloride (test code 107 meq/L 98-107 = 2075-0) CO2 (test code = 27 meq/L 22-29 2028-9) BUN (test code = 21 mg/dL 7-21 3094-0) Creatinine (test 0.97 mg/dL 0.57-1.25 code = 2160-0) Glucose (test code 99 mg/dL 70-105 = 2345-7) Calcium (test code 8.7 mg/dL 8.4-10.2 = 01631-2) EGFR (test code = 55 mL/min/1.73 [place] [address]-0) NOT ACCURATE CREATININE CLEARANCE IN PREDICTING GLOMERULAR FILTRATION RATE . ESTIMATED GFR I S NOT APPLICABLE FOR DIALYSIS PATIEN TS. DONELL (test code = Studio Operator ID - DONELL) JENI Young [facility] CenterHepatic function [id number] 05:08:00 Test Item Value Reference Range Interpretation Comments Protein, Total (test code 5.9 6.0- 8.3 gm/dL L = 2885-2) Albumin (test code = 3.3 g/dL 3.5-5 L 71148-5) Total Bilirubin (test code 0.4 mg/dL 0.2-1.2 = 1975-2) Bilirubin, Direct (test 0.2 mg/dL 0.1-0.5 code = 1968-7) Alkaline Phosphatase (test 112 U/L 40-150 code = 6768-6) AST (test code = 1920-8) 16 U/L 5-34 ALT (test code = 1742-6) 10 U/L 6-55 DONELL (test code = DONELL) Studio Operator ID - JENI L Lab Interpretation (test Abnormal code = 29928-5) [facility] Center[facility]esium2020-06-05 05:08:00 Test Item Value Reference Range Interpretation Comments Magnesium (test code = 1.5 mg/dL 1.6-2.6 L 45586-6) DONELL (test code = DONELL) Studio Operator ID - CLAIREIVY L Lab Interpretation (test Abnormal code = 59146-6) [facility] Center[facility]osphorus2020-06-05 05:08:00 Test Item Value Reference Range Interpretation Comments Phosphorus (test code = 3.5 mg/dL 2.3-4.7 2777-1) DONELL (test code = DONELL) Studio Operator ID - JENI L Lab Interpretation (test Normal code = 63192-0) [facility] CenterPHOSPHORUS2020-06-05 05:08:00 Test Item Value Reference Range Interpretation Comments PHOSPHORUS (BEAKER) (test code = 3.5 mg/dL 2.3-4.7 604) Studio Operator ID - JENI [id number] 05:08:00 Test Item Value Reference Range Interpretation Comments MAGNESIUM (BEAKER) (test code = 1.5 mg/dL 1.6-2.6 L 627) Studio Operator ID - JENI LBASIC METABOLIC [id number] 05:08:00 Test Item Value Reference Range Interpretation [...] S NOT APPLICABLE FOR DIALYSIS PATIEN TS. Studio Operator ID - JENI LHEPATIC FUNCTION [id number] 05:08:00 Test Item Value Reference Range Interpretation [...] (test code = 10 U/L 6-55 347) Studio Operator ID - JENI LCBC with platelet count + automated [id number] 05:00:00 Test Item Value Reference Range Interpretation [...] 450 K/CU MM MPV (test code = 68501-9) 10.7 fL 9.4-12.3 nRBC (test code = [...] 2801) Lab Interpretation (test code = Abnormal 18656-9) [facility] W/PLT COUNT & AUTO [id number] 05:00:00 Test Item Value Reference Range Interpretation [...] = 2801) Urinalysis w/Microscopic + Reflex to [id number] 15:12:00 Test Item Value Reference Range Interpretation Comments Color, UA (test code = Yellow 5778-6) Clarity, UA (test code = Clear 5767-9) Specific [place], UA (test 1.030 1.001-1.035 code = 5811-5) pH, UA (test code = 5.0 5.0-8.0 5803-2) Protein, UA (test code = Negative Negative 16272-1) Glucose, UA (test code = Negative Negative 365) Ketones, UA (test code = Negative Negative 2514-8) Bilirubin, UA (test code = Negative Negative 24785-6) Blood, UA (test code = Negative Negative 30904-3) Nitrite, UA (test code = Negative Negative 5802-4) Leukocytes, UA (test code Large Negative A = 5799-2) Urobilinogen, UA (test 0.2 mg/dL 0.2-1 code = 74800-9) RBC, UA (test code = 1 /HPF 28066-3) WBC, UA (test code = 70 /HPF 5821-4) Mucus (test code = 8247-9) Rare Squam Epithel, UA (test 1 /HPF code = 11549-0) Specimen Source (test code = 2795) DONELL (test code = DONELL) Studio Operator ID - [auto]Studio Operator ID - tech Lab Interpretation (test Abnormal code = 88483-8) [facility] Center[facility]ALYSIS W/ REFLEX URINE [id number] 15:12:00 Test Item Value Reference Range Interpretation [...] = 516) SOURCE(BEAKER) (test code = 2795) Studio Operator ID - [auto]Studio Operator ID - techTSH/Free T4 If [id number] 06:38:00 Test Item Value Reference Range Interpretation Comments TSH (test code = 17933-1) 1.079 0.350- 4.940 uIU/mL DONELL (test code = DONELL) Studio Operator ID - LA Lab Interpretation (test Normal code = 52374-7) [facility] CenterTSH/FREE T4 IF [id number] 06:38:00 Test Item Value Reference Range Interpretation Comments THYROID STIMULATING HORMONE 1.079 uIU/mL 0.350-4.940 (BEAKER) (test code = 772) Studio Operator ID - [id number] 06:13:00 Test Item Value Reference Range Interpretation Comments PHOSPHORUS (BEAKER) (test code = 3.9 mg/dL 2.3-4.7 604) Studio Operator ID - [id number] 06:13:00 Test Item Value Reference Range Interpretation Comments MAGNESIUM (BEAKER) (test code = 1.7 mg/dL 1.6-2.6 627) Studio Operator ID - LABASIC METABOLIC [id number] 06:13:00 Test Item Value Reference Range Interpretation [...] S NOT APPLICABLE FOR DIALYSIS PATIEN TS. Studio Operator ID - LAHEPATIC FUNCTION [id number] 06:13:00 Test Item Value Reference Range Interpretation [...] (test code = 11 U/L 6-55 347) Studio Operator ID - LACBC W/PLT COUNT & AUTO [id number] 05:38:00 Test Item Value Reference Range Interpretation [...] % 0-1 PERCENT (BEAKER) (test code = 2800)
--- OUTSIDE RECORDS SUMMARY | 2020-03-01 17:13 | XMS REPORT | Clinical Summary ---
:[address] [facility] Address [address] [place] [address] Care Team Providers Name Role Phone Pcp, MD Primary Care Provider Unavailable Allergies Active Allergy [...] (CELEXA) 20 MG mouth daily. tablet apixaban Take 5 mg by 0 Discont inued (ELIQUIS) 5 mg mouth daily. 0 (S top Taking at Tab tablet Discharge ) apixaban Take 1 tablet 180 tablet 0 08/01/2019 Disc ontinued (ELIQUIS) 5 mg (5 mg total) 0 Tab tablet by mouth 2 (two) times daily for 90 days. traMADoL (ULTRAM) Take 1 tablet 30 tablet 0 08/01/2019 02 Discontinued 50 mg tablet (50 mg total) 0 by mouth every 8 (eight) hours as needed for Pain for up to 10 days. Max Daily Amount: 150 mg doxycycline Take 1 10 capsule 2 08/01/2019 Discon tinued (MONODOX) 100 MG capsule (100 0 capsule mg total) by mouth every 12 (twelve) hours for 5 days. apixaban Take 1 tablet 180 tablet 0 08/01/2019 Expi red (ELIQUIS) 5 mg (5 mg total) 0 Tab tablet by mouth 2 (two) times daily for 90 days. traMADoL (ULTRAM) Take 1 tablet 30 tablet 0 08/01/2019 02 50 mg tablet (50 mg total) 0 by mouth every 8 (eight) hours as needed for Pain for up to 10 days. Max Daily Amount: 150 mg doxycycline Take 1 10 capsule 2 08/01/2019 d (MONODOX) 100 MG capsule (100 0 capsule mg total) by mouth every 12 (twelve) hours for 5 days. Active Problems Problem Noted Date DVT (deep venous thrombosis) 07/31/2019 Encounters Date Type Specialty Care Team Description 07/30/2019 - Hospital Encounter Cardiology Lenora, Kristi Acute de ep vein thrombosis (DVT) of popliteal vein of left lower extremity (HCC); 08/01/2019 MD Ronel Essential hypertension; Sheryl Rodriguez, Atrial fi brillation, unspecified type (HCC); Acute deep vein thrombosis (DVT) of left lower extremity, unspecified vein (HCC) Niru Velez MD 07/30/2019 Travel after 03/01/2019 Social History Tobacco Use Types Packs/Day Years [...] Assigned at Date Recorded Not on file Last Filed Vital Signs Vital Sign Reading Time Taken Comments Blood Pressure 104/50 08/01/2019 7:25 AM CDT [...] 07/30/2019 9:45 PM CDT Plan of Treatment Health Maintenance Due Date Last Done Comments PNEUMOCOCCAL 65+ YRS (1 of 1 - [id number]) 2001 Medicare IPPE (WELCOME TO MEDICARE) 02/26/2019 INFLUENZA VACCINE (#1) 2019 Procedures Procedure Name Priority Date/Time Associated Comments [...] are i n the results section. after 03/01/2019 Results RHYTHM STRIP - SCAN (08/04/2019 2:40 PM CDT) Narrative Performed At This result has an attachment that is no t available. CBC with platelet count + automated diff (08/01/2019 3:52 AM CDT)Only the most recent of2 resultswithin the time period is included. Pathologist Sig nature WBC 6.7 3.5 - 10.5 [facility] K/L [facility] RBC 4.28 3.93 - 5.22 [facility] M/L [facility] Hemoglobin 12.0 11.2 - 15.7 [facility] GM/DL [facility] Hematocrit 39.3 34.1 - 44.9 % [facility] MCV 91.8 79.4 - 94.8 fL [facility] MCH 28.0 25.6 - 32.2 pg [facility] MCHC 30.5 (L) 32.2 - 35.5 [facility] GM/DL [facility] RDW 13.9 11.7 - 14.4 % [facility] Platelets 249 150 - 450 K/CU [facility] MPV 10.7 9.4 - 12.3 fL [facility] nRBC 0 0 - 0 /100 WBC [facility] % Neutros 49 % [facility] % Lymphs 34 % [facility] % Monos 13 % [facility] % Eos 3 % [facility] % Baso 1 % [facility] # Neutros 3.24 1.56 - 6.13 [facility]/L [facility] # Lymphs 2.24 1.18 - 3.74 [facility] # Monos 0.88 (H) 0.24 - 0.36 [facility] # Eos 0.23 0.04 - 0.36 [facility] # Baso 0.07 0.01 - 0.08 [facility] Immature 0 0 - 1 % [facility] Granulocytes-[facility] Specimen Blood Performing Organization Address City/[facility]/Zipcode Phone Number [address] [address] CENTER Prealbumin (08/01/2019 3:52 AM CDT) Pathologist Sig nature Prealbumin 10 (L) 14 - 45 mg/dL [facility] Specimen Blood Narrative Performed At [facility] - PIAYA L [facility] Performing Organization Address City/State/Zipcode Phone Number [address] [address] CENTER Phosphorus (08/01/2019 3:52 AM CDT)Only the most recent of2 resultswithin the time period is included. Pathologist Sig nature Phosphorus 3.5 2.3 - 4.7 mg/dL [facility] Specimen Blood Narrative Performed At [facility] - PIAYA L [facility] Performing Organization Address City/State/Zipcode Phone Number [address] [address] CENTER Magnesium (08/01/2019 3:52 AM CDT)Only the most recent of2 resultswithin the time period is included. Pathologist Sig nature Magnesium 1.5 (L) 1.6 - 2.6 mg/dL [facility] Specimen Blood Narrative Performed At [facility] - PIAYA L [facility] Performing Organization Address [facility]/Zipcode Phone Number [facility] [address] [place] [address] CENTER Hepatic function panel (08/01/2019 3:52 AM CDT)Only the most recent of2 results within the time period is included. Pathologist Sig nature Protein, Total 5.9 (L) 6.0 - 8.3 gm/dL [facility] Albumin 3.3 (L) 3.5 - 5.0 g/dL [facility] Total Bilirubin 0.4 0.2 - 1.2 mg/dL [facility] Bilirubin, Direct 0.2 0.1 - 0.5 mg/dL [facility] Alkaline Phosphatase 112 40 - 150 U/L [facility] AST 16 5 - 34 U/L [facility] ALT 10 6 - 55 U/L [facility] Specimen Blood Narrative Performed At [facility] - JENI Young [facility] Performing Organization Address [facility]/Zipcode Phone Number [facility] [address] [place] [address] CENTER Basic metabolic panel (08/01/2019 3:52 AM CDT)Only the most recent of2 results within the time period is included. Sodium 142 136 - 145 meq/L [facility] Potassium 3.9 3.5 - 5.1 meq/L [facility] Chloride 107 98 - 107 meq/L [facility] CO2 27 22 - 29 meq/L [facility] BUN 21 7 - 21 mg/dL [facility] Creatinine 0.97 0.57 - 1.25 [facility] mg/dL [facility] Glucose 99 70 - 105 mg/dL [facility] Calcium 8.7 8.4 - 10.2 [facility] mg/dL [facility] EGFR 55Comment: ESTIMATED mL/min/1.[address] [facility] GFR IS NOT m [facility] ACCURATE [place] CREATININE CLEARANCE IN PREDICTING GLOMERULAR FILTRATION RATE. ESTIMATED GFR IS NOT APPLICABLE FOR DIALYSIS PATIENTS. Specimen Blood Narrative Performed At [facility] - JENI Young [facility] Performing Organization Address City/State/Zipcode Phone Number [facility] [address] [place] [address] CENTER Urinalysis w/Microscopic + Reflex to Culture (07/31/2019 2:53 PM CDT) Pathologist Sig nature Color, UA Yellow [facility] Clarity, UA Clear [facility] Specific [place], 1.030 1.001 - 1.035 [facility] pH, UA 5.0 5.0 - 8.0 [facility] Protein, UA Negative Negative [facility] Glucose, UA Negative Negative [facility] Ketones, UA Negative Negative [facility] Bilirubin, UA Negative Negative [facility] Blood, UA Negative Negative [facility] Nitrite, UA Negative Negative [facility] Leukocytes, UA Large (A) Negative [facility] Urobilinogen, UA 0.2 0.2 - 1.0 mg/dL [facility] RBC, UA 1 /HPF [facility] WBC, UA 70 /HPF [facility] Mucus Rare [facility] Squam Epithel, UA 1 /HPF [facility] Specimen Source [facility] Specimen Urine Narrative Performed At [facility] - [auto] [facility] - tech Performing Organization Address [facility] Phone [facility] [address] [place] [address] CENTER Urine culture (07/31/2019 2:53 PM CDT) Pathologist Sig nature Result 40-49,000 col/mL [facility] Enterobacter cloacae [facility] complex (A) Specimen Urine - Urine (substance) Narrative Performed At 80-89,000 col/mL skin betty [facility] <10,000 col/mL Gram negative nicky (of a [...] Sulfamethoxazole <=20: Susceptible complex Performing Organization Address [facility] Phone Number [place] [phone] [place] [address] CENTER TSH/Free T4 If Indicated (07/31/2019 5:12 AM CDT) Pathologist Sig nature TSH 1.079 0.350 - 4.940 uIU/mL [facility] Specimen Blood Narrative Performed At [facility] - [place] [facility] Performing Organization Address City/[facility]/Zipcode Phone Number [place] [phone] [place] [address] CENTER Factor 5 Leiden PCR (thrombotic risk) (07/31/2019 5:12 AM CDT) Factor V Leiden SEE BELOWComment: [facility] Mutation RESULT: FACTOR V INCORPORATED LEIDEN (R506Q) VARIANT NOT DETECTED Interpretation SEE BELOW [facility] Comment: INCORPORATED INTERPRETATION: This individual is negative (normal) f or the Factor V Leiden (R506Q) variant in the Factor V gene. Increased risk o f thrombophilia can be caused by a variety of genetic and non-genetic factors not screened for by this assay. Laboratory testing supervised and results monitored by Kizzy Rojo MD, PhD, [facility], [facility]. MUTATION ANALYSIS: The Factor V Leiden (R506Q) mutation [NM 315296.2: c.1 601G>A (p.R534Q)] in the Factor V gene is one of the most common causes of inherited thrombophilia. This mutation causes resistance to degr adation of activated Factor V protein by activated protein C (APC). The Fac tor V Leiden (R506Q) mutation is detected by amplification of the devon ected region of Factor V gene by polymerase chain reaction (PCR) and fluoresce nt probe hybridization to the targeted region, followed by melting curve analysis wi a real time PCR system. Although rare, false positive or false negativ e results may occur. All results should be interpreted in context of clinic al findings, relevant history, and other laboratory data. This test was developed and its analytical performance characteristics have been determined by [facility]. It has not been cleared or approved by FDA. This assay has been validated pursuant to the CLIA regulations and is used for clini lakisha purposes. Health care providers, please contact your local [facility]' genetic counselor or call [phone] ([phone]) for as sistance with interpretation of these results. Specimen Blood Narrative Performed At Performing Lab [facility] te [address] [place] [address] Aysha Waller MD, PhD, TIFF Performing Organization Address City/State/Zipcode Phone [place] [address] [facility] after 03/01/2019 Insurance Payer Benefit Plan / Subscriber ID Effective Phone Address T ype Group Dates HUMANA - HUMANA [id number] 2019-Prese Maps Contracted MEDICARE MGD MEDICARE ADV nt CARE Advance Directives For more information, please contact: [phone] Code Status Date Activated Date Inactivated Comments Full Code 07/31/2019 1:13 AM 08/01/2019 4:04 PM This code status was determined by: Patient
[2020-03-01 18:40] LABS: Absolute Lymphocytes (CBC) 1.5 K/uL (0.7-4.9); Hematocrit 42.1 % (36.0-45.0); Lymphocytes % 19.7 % (15.3-44.8); MPV 9.5 fL (7.6-11.3); RBC Red Blood Cell Count 4.53 M/uL (3.86-4.86)
[2020-03-01 18:42] LABS: Protime INR 1.23
[2020-03-01 18:59] LABS: ALT/SGPT 22 U/L (12-78); AST/SGOT 27 U/L (15-37); Albumin 2.8 g/dL (3.4-5.0); Alkaline Phosphatase 140 U/L (45-117); BUN Blood Urea Nitrogen 15 mg/dL (7-18); Bicarbonate 26 mmol/L (21-32); Bilirubin Direct 0.2 mg/dL (0-0.2); Bilirubin Total 0.6 mg/dL (0.2-1.0); Glucose Level 108 mg/dL (74-106); Lipase 58 U/L (73-393); Magnesium 1.9 mg/dL (1.8-2.4); NT PRO-BNP 1214 pg/mL (<450); Protein, Total 6.3 g/dL (6.4-8.2); Sodium Level 143 mmol/L (136-145); Troponin (Emerg Dept Use Only) < 0.02 ng/mL (0.0-0.045)
--- NOTE | 2020-03-01 19:00 | RAD REPORT ---
EXAM DESCRIPTION: CT - Head C Spine Raf New - 03/01/2020 6:34 pm CLINICAL HISTORY: Head and neck injury with chest and abdominal pain status post fall. Head and neck pain . TECHNIQUE: Computed axial tomography of the head and cervical spine was obtained Computed axial tomography of the chest, abdomen and pelvis was obtained. 100 cc Isovue-300 was given intravenously coronal and sagittal reconstruction was performed. All CT scans are performed using dose optimization technique as appropriate and may include automated exposure control or mA/KV adjustment according to patient size. COMPARISON: October 2019 FINDINGS: An intracranial bleed is not seen. The ventricles are normal in caliber. An extra-axial fl uid collection is not noted. Moderate low-density areas within periventricular, and subcortical white matter likely ischemic changes secondary to small vessel disease. Fluid within the sinuses/mastoids is not present. A cervical fracture is not seen. No dislocation is seen. A mediastinal hematoma is not noted. A pleural effusion is not present. A lung contusion is not seen. The liver, spleen, pancreas, adrenals, kidneys and bladder do not demonstrate a traumatic injury. Old left rib fractures. Old L1 compression fracture. Left hip arthroplasty IMPRESSION: 1. No acute intracranial abnormality is seen 2. A cervical fracture is not visualized. If the patient continues have symptoms to suggest intracran ial/spinal cord pathology then MRI would be recommended. 3. No acute traumatic injury involving the chest, abdomen or pelvis is seen.
--- NOTE | 2020-03-01 19:06 | RAD REPORT ---
EXAM DESCRIPTION: RAD - Pelvis - 03/01/2020 6:58 pm CLINICAL HISTORY: Pelvic pain status post injury FINDINGS: No fracture or dislocation is seen. Left hip arthroplasty. Prosthesis is in good position without evidence of loosening
--- NOTE | 2020-03-01 19:07 | RAD REPORT ---
EXAM DESCRIPTION: RAD - Hip Left 2 View - 03/01/2020 6:58 pm CLINICAL HISTORY: Left hip pain status post injury FINDINGS: No fracture or dislocation is seen. Left hip arthroplasty. Prosthesis is in good position without evidence of loosening
[2020-03-01] MEDS ORDERED: FENTANYL CITR 100 MCG/2 ML ONE (19:08)
[2020-03-01] MEDS ORDERED: NA CHLORIDE 0.9% 1,000 ML ONE (19:08)
[2020-03-01] MEDS ORDERED: ONDANSETRON 4 MG/2 ML VIAL ONE (19:08)
[2020-03-01] MEDS ORDERED: FAMOTIDINE 20 MG/2 ML VIAL IV ONE (19:08)
--- NOTE | 2020-03-01 19:12 | RAD REPORT ---
EXAM DESCRIPTION: RAD - Femur Left - 03/01/2020 6:58 pm CLINICAL HISTORY: Left leg pain FINDINGS: Left hip and knee prostheses. Sideplate and wires are present along most of the left femur . No acute fracture. Osteoporosis
--- NOTE | 2020-03-01 19:14 | RAD REPORT ---
EXAM DESCRIPTION: Jase Single View03/01/2020 6:58 pm CLINICAL HISTORY: Chest pain COMPARISON: October 2019 FINDINGS: The lungs appear clear of acute infiltrate. The heart is normal size IMPRESSION: No acute abnormalities displayed
--- NOTE | 2020-03-01 19:34 | ER ---
Nurse's Notes [facility] Name: Jeannie Cobb Age: 84 yrs Sex: Female : 1935 Arrival Date: 03/01/2020 Time: 17:13 Bed 18 Private MD: Diagnosis: Fall due to bumping against object;Pain in left hip;Sprain of ankle;Anterior subluxation of right sternoclavicular joint;Pain in left knee Presentation: 03/01 17:14 Chief complaint: Patient states: Tripped and fell on bathroom. Denies LOC. C/O R ca1 collarbone pain, L hip pain, Hematoma on the R eyebrow. Pt is on Eliquis. A\T\0x4. Coronavirus screen: Client denies travel out of the [place] in the last 14 days. At this time, the client does not indicate any symptoms associated with coronavirus-19. Ebola Screen: Patient negative for fever greater than or equal to 101.5 degrees Fahrenheit, and additional compatible Ebola Virus Disease symptoms Patient denies exposure to infectious person. Patient denies travel to an Ebola-affected area in the 21 days before illness onset. No symptoms or risks identified at this time. Initial Sepsis Screen: Does the patient meet any 2 criteria? No. Patient's initial sepsis screen is negative. Does the patient have a suspected source of infection? No. Patient's initial sepsis screen is negative. Risk Assessment: Do you want to hurt yourself or someone else? Patient reports no desire to harm self or others. Onset of symptoms was March 01, 2020. 17:14 Method Of Arrival: EMS: [facility] ca1 17:14 Acuity: ETIENNE 2 ca1 17:19 Care prior to arrival: None. Mechanism of Injury: Fall from standing position. Trauma ca1 event details: Injury occurred in the [facility], Injury occurred: at home. Injury occurred: March 01, 2020 Injury occurred at: 17:20. Trauma Activation: Alert Physician: ED Physician; Name: ; Notified At: ; Arrived At: Physician: General Surgeon; Name: ; Notified At: ; Arrived At: Physician: Radiology; Name: ; Notified At: ; Arrived At: Physician: Respiratory; Name: ; Notified At: ; Arrived At: Physician: Lab; Name: ; Notified At: ; Arrived At: Historical: - Allergies: 17:17 Codeine; ca1 - PMHx: 17:17 Atrial Fib; Hypertension; ca1 - PSHx: 17:18 L femur surgery; Hip replacement; Knee surgery; ca1 - Immunization history:: Adult Immunizations up to date, Pneumococcal vaccine is up to date, Flu vaccine is up to date. - Social history:: Smoking status: Patient denies any tobacco usage or history of. Screenin:10 Nutritional screening: No deficits noted. Fall Risk Fall in past 12 months (25 points). ca1 IV access (20 points). Ambulatory Aid- Crutches/Cane/Walker (15 pts). Total Sanders Fall Scale indicates High Risk Score (45 or more points). Fall prevention measures have been instituted. Side Rails Up X 2 Family Present and informed to notify staff if the need to leave the bedside As available patient and family educated on Fall Prevention Program and Strategies. 17:19 Abuse screen: Denies threats or abuse. Denies injuries from another. Tuberculosis ca1 screening: No symptoms or risk factors identified. Primary Survey: 17:19 NO uncontrolled hemorrhage observed. A: The patient is alert. Airway: patent. ca1 Breathing/Chest: Respiratory pattern: regular, Respiratory effort: spontaneous, unlabored, Chest inspection: symmetrical rise and fall of the chest. Circulation: Heart tones present. Pulses: palpable bilateral radial, brachial, femoral, popliteal, posterior tibial and and dorsalis pedis arteries.. Disability Alert. Exposure/Environment: All clothing and personal items were removed. Forensic evidence collection is not deemed to be indicated at this time. Items placed in patient belonging bag. There is no evidence of uncontrolled external bleeding. No obvious injuries are noted at this time. A warming method has been applied: A warm blanket has been provided to the patient. 18:10 Reassessment Airway Airway Patent Breathing/Chest Respiratory pattern Regular ca1 Respiratory effort Spontaneous Unlabored Breath sounds Clear Chest inspection Symmetrical Circulation Heart tones Present Pulses Palpable Color Tony Temperature Warm Dry Disability Alert. Assessment: 17:10 General: Appears in no apparent distress. comfortable, Behavior is calm, cooperative, ca1 appropriate for age. Pain: Complains of pain in left hip and left leg Pain currently is 6 out of 10 on a pain scale. Pain began 1 day ago. Neuro: Level of Consciousness is awake, alert, obeys commands, Oriented to person, place, time, situation. Cardiovascular: Heart tones S1 S2 present Capillary refill < 3 seconds Patient's skin is warm and dry. Respiratory: Airway is patent Respiratory effort is even, unlabored, Respiratory pattern is regular, symmetrical, Breath sounds are clear bilaterally. GI: Abdomen is round non-distended, Bowel sounds present X 4 quads. Abd is soft and non tender X 4 quads. : No signs and/or symptoms were reported regarding the genitourinary system. EENT: No signs and/or symptoms were reported regarding the EENT system. Derm: Skin is intact, is healthy with good turgor, Skin is pink, warm \T\ dry. Musculoskeletal: Circulation, motion, and sensation intact. Capillary refill < 3 seconds. 18:10 Reassessment: Patient appears in no apparent distress at this time. Patient and/or ca1 family updated on plan of care and expected duration. Pain level reassessed. Patient is alert, oriented x 3, equal unlabored respirations, skin warm/dry/pink. 19:00 Reassessment: Patient appears in no apparent distress at this time. Patient is alert, ca1 oriented x 3, equal unlabored respirations, skin warm/dry/pink. Vital Signs: 17:14 BP 122 / 58; Pulse 86; Resp 17 S; Temp 98.5(TE); Pulse Ox 97% on R/A; ca1 18:25 BP 135 / 78; Pulse 82; Resp 16 S; Pulse Ox 96% on R/A; ca1 Gagan Coma Score: 17:19 Eye Response: spontaneous(4). Verbal Response: oriented(5). Motor Response: obeys ca1 commands(6). Total: 15. Trauma Score (Adult): 17:19 Eye Response: spontaneous(1); Verbal Response: oriented(1); Motor Response: obeys ca1 commands(2); Systolic BP: > 89 mm Hg(4); Respiratory Rate: 10 to 29 per min(4); Gagan Score: 15; Trauma Score: 12 ED Course: 17:10 No provider procedures requiring assistance completed. ca1 17:13 Patient arrived in ED. ca1 17:17 Triage completed. ca1 17:17 Arm band placed on right wrist. ca1 17:19 Eunice Monsalve, RN is Primary Nurse. ca1 17:19 Patient has correct armband on for positive identification. Placed in gown. Bed in low ca1 position. Call light in reach. Side rails up X2. 17:19 Patient maintains SpO2 saturation greater than 95% on room air. ca1 17:20 Thermoregulation: warm blanket given to patient. ca1 17:26 Vicente Wright MD is Attending Physician. svetlana 18:09 Inserted saline lock: 20 gauge in right forearm, using aseptic technique. Blood dh4 collected. 18:35 CT Traumagram (Head C Spine CAP W Con) In Process Unspecified. EDMS 18:59 Pelvis XRAY In Process Unspecified. EDMS 18:59 Hip Left 2 View XRAY In Process Unspecified. EDMS 18:59 Femur Left XRAY In Process Unspecified. EDMS 18:59 XRAY Chest (1 view) In Process Unspecified. EDMS 19:35 Report given to COLBY Bennett. ca1 19:36 Shan Badillo MD is Referral Physician. svetlana 20:31 Tib Fib Left XRAY In Process Unspecified. EDMS 20:31 Foot Left 3 View XRAY In Process Unspecified. EDMS Administered Medications: 20:27 Drug: Zofran (Ondansetron) 4 mg Route: IVP; Site: right antecubital; ll2 20:27 Drug: Pepcid 20 mg Route: IVP; Site: right antecubital; ll2 20:27 Drug: fentaNYL Patch (25 mcg/hr) 1 patches Route: Transdermal; Site: affected area; ll2 20:28 Not Given (Physician Discretion): fentaNYL (PF) 12.5 mcg IVP once; RASS on ADMIN: ll2 Combtv4, Very Agttd3, Agttd2, Rstlss1, AlertClm0, Drwsy-1, Lt Sdtn-2, Mod Sdtn-3, Dp Sdtn-4, UnArsble-5 20:28 Not Given (Physician Discretion): fentaNYL (PF) 12.5 mcg IVP once; RASS on ADMIN: ll2 Combtv4, Very Agttd3, Agttd2, Rstlss1, AlertClm0, Drwsy-1, Lt Sdtn-2, Mod Sdtn-3, Dp Sdtn-4, UnArsble-5 20:29 Not Given (Physician Discretion): NS 0.9% 1000 ml IV at 125 ml/hr continuous ll2 Outcome: 19:34 Discharge ordered by MD. mota 21:05 Patient left the ED. zb Signatures: Dispatcher [employer] EDMS Vicente Wright MD MD cha Acob, Cheryl RN RN ca1 Clinton Yi 4 Sabrina Mac RN RN ll2 Katelyn Daniels RN RN zb Corrections: (The following items were deleted from the chart) 17:17 17:14 BP 122 / 58; Pulse 86bpm; Resp 17bpm; Spontaneous; Pulse Ox 97% RA; Temp 96F ca1 Temporal; ca1
--- NOTE | 2020-03-01 19:34 | EDPHYS ---
Physician Documentation [facility] Name: Jeannie Cobb Age: 84 yrs Sex: Female : 1935 Arrival Date: 03/01/2020 Time: 17:13 Bed 18 Private MD: ED Physician Vicente Wright HPI: 03/01 18:03 This 84 yrs old Female presents to ER via EMS with complaints of Fall Injury. svetlana 18:03 Details of fall: The patient fell from an upright position, sitting. Onset: The svetlana symptoms/episode began/occurred yesterday. Associated injuries: The patient sustained injury to the chest, specifically the right clavicle and anterior aspect of right upper chest, pelvis, left hip, lateral aspect of left thigh, lateral aspect of left knee, left upper thigh, left quadriceps and left knee, decreased range of motion, painful injury. Severity of symptoms: At their worst the symptoms were moderate, in the emergency department the symptoms are unchanged. The patient has not experienced similar symptoms in the past. Historical: - Allergies: 17:17 Codeine; ca1 - PMHx: 17:17 Atrial Fib; Hypertension; ca1 - PSHx: 17:18 L femur surgery; Hip replacement; Knee surgery; ca1 - Immunization history:: Adult Immunizations up to date, Pneumococcal vaccine is up to date, Flu vaccine is up to date. - Social history:: Smoking status: Patient denies any tobacco usage or history of. ROS: 18:04 Constitutional: Negative for fever, chills, and weight loss, Eyes: Negative for injury, svetlana pain, redness, and discharge, ENT: Negative for injury, pain, and discharge, Neck: Negative for injury, pain, and swelling, Cardiovascular: Negative for chest pain, palpitations, and edema, Respiratory: Negative for shortness of breath, cough, wheezing, and pleuritic chest pain, Abdomen/GI: Negative for abdominal pain, nausea, vomiting, diarrhea, and constipation, Back: Negative for injury and pain, : Negative for injury, bleeding, discharge, and swelling, Skin: Negative for injury, rash, and discoloration, Neuro: Negative for headache, weakness, numbness, tingling, and seizure. 18:04 MS/extremity: Positive for decreased range of motion, pain, tenderness, of the pelvis and left leg, right sterno clavicular joint. Exam: 18:04 Constitutional: This is a well developed, well nourished patient who is awake, alert, svetlana and in no acute distress. Head/Face: Normocephalic, atraumatic. Eyes: Pupils equal round and reactive to light, extra-ocular motions intact. Lids and lashes normal. Conjunctiva and sclera are non-icteric and not injected. Cornea within normal limits. Periorbital areas with no swelling, redness, or edema. ENT: Nares patent. No nasal discharge, no septal abnormalities noted. Tympanic membranes are normal and external auditory canals are clear. Oropharynx with no redness, swelling, or masses, exudates, or evidence of obstruction, uvula midline. Mucous membranes moist. Neck: Trachea midline, no thyromegaly or masses palpated, and no cervical lymphadenopathy. Supple, full range of motion without nuchal rigidity, or vertebral point tenderness. No Meningismus. Cardiovascular: Regular rate and rhythm with a normal S1 and S2. No gallops, murmurs, or rubs. Normal PMI, no JVD. No pulse deficits. Respiratory: Lungs have equal breath sounds bilaterally, clear to auscultation and percussion. No rales, rhonchi or wheezes noted. No increased work of breathing, no retractions or nasal flaring. Abdomen/GI: Soft, non-tender, with normal bowel sounds. No distension or tympany. No guarding or rebound. No evidence of tenderness throughout. Back: No spinal tenderness. No costovertebral tenderness. Full range of motion. Female : Normal external genitalia. Skin: Warm, dry with normal turgor. Normal color with no rashes, no lesions, and no evidence of cellulitis. Neuro: Awake and alert, GCS 15, oriented to person, place, time, and situation. Cranial nerves II-XII grossly intact. Motor strength 5/5 in all extremities. Sensory grossly intact. Cerebellar exam normal. Normal gait. Psych: Awake, alert, with orientation to person, place and time. Behavior, mood, and affect are within normal limits. 18:04 Chest/axilla: Inspection: normal, deformity, of the right clavicle and anterior aspect of right upper chest 18:04 Cardiovascular: Rate: normal, Rhythm: regular, Pulses: Pulses are 4+ in bilateral radial, brachial, femoral, popliteal, posterior tibial and and dorsalis pedis arteries.. Heart sounds: normal, Edema: 1+ edema to level of left midcalf, JVD: is not appreciated. 18:04 Musculoskeletal/extremity: Extremities: grossly normal except: noted in the pelvis and left leg: decreased ROM, pain, ROM: limited active range of motion, limited passive range of motion, in the left leg, Circulation is intact in all extremities. Sensation intact. Compartment Syndrome exam of affected extremity: is normal. DVT Exam: negative Homans' sign noted on exam, no appreciated bluish discoloration, no erythema, no increased warmth, pain, swelling, tenderness. 19:49 ECG was reviewed by the Attending Physician. [facility] Vital Signs: 17:14 BP 122 / 58; Pulse 86; Resp 17 S; Temp 98.5(TE); Pulse Ox 97% on R/A; ca1 18:25 BP 135 / 78; Pulse 82; Resp 16 S; Pulse Ox 96% on R/A; ca1 [place] Coma Score: 17:19 Eye Response: spontaneous(4). Verbal Response: oriented(5). Motor Response: obeys ca1 commands(6). Total: 15. Trauma Score (Adult): 17:19 Eye Response: spontaneous(1); Verbal Response: oriented(1); Motor Response: obeys ca1 commands(2); Systolic BP: > 89 mm Hg(4); Respiratory Rate: 10 to 29 per min(4); Gagan Score: 15; Trauma Score: 12 MDM: 17:26 Patient medically screened. [facility] 18:07 Differential diagnosis: closed head injury, L spine fracture, closed fracture, svetlana contusion. Differential diagnosis: closed head injury, contusion, fracture, multiple trauma, sprain, strain. Data reviewed: vital signs, nurses notes, lab test result(s), EKG, radiologic studies. Data interpreted: patient case coordinator: rate is 86 beats/min, rhythm is regular, Pulse oximetry: on room air is 97 %. Test interpretation: by ED physician or midlevel provider: ECG, plain radiologic studies. Counseling: I had a detailed discussion with the patient and/or guardian regarding: the historical points, exam findings, and any diagnostic results supporting the discharge/admit diagnosis, lab results, radiology results. 03/01 18:01 Order name: Basic Metabolic Panel; Complete Time: 19:22 [facility] 03/01 18:01 Order name: CBC with Diff; Complete Time: 19:22 03/01 18:01 Order name: LFT's; Complete Time: 19:22 03/01 18:01 Order name: Magnesium; Complete Time: 19:22 03/01 18:01 Order name: NT PRO-BNP; Complete Time: 19:22 03/01 18:01 Order name: PT-INR; Complete Time: 19:22 svetlana 03/01 18:01 Order name: Pelvis XRAY; Complete Time: 19:22 03/01 18:01 Order name: Hip Left 2 View XRAY; Complete Time: 19:22 03/01 18:01 Order name: Femur Left XRAY; Complete Time: 19:22 03/01 18:01 Order name: Troponin (emerg Dept Use Only); Complete Time: 19:22 03/01 18:01 Order name: XRAY Chest (1 view); Complete Time: 19:22 03/01 18:01 Order name: Lipase; Complete Time: 19: [facility] 03/01 18:02 Order name: CT Traumagram (Head C Spine CAP W Con); Complete Time: 19:22 svetlana 03/01 18:01 Order name: EKG; Complete Time: 18:05 svetlana 03/01 18:01 Order name: EKG - Nurse/Tech; Complete Time: 18:30 03/01 18:01 Order name: IV Saline Lock; Complete Time: 18:10 [facility] 03/01 18:01 Order name: Labs collected and sent; Complete Time: 18:10 [facility] 03/01 18:01 Order name: O2 Per Protocol; Complete Time: 18:10 [facility] 03/01 19:31 Order name: Tib Fib Left XRAY; Complete Time: 20:42 svetlana 03/01 19:31 Order name: Foot Left 3 View XRAY 03/01 18:01 Order name: O2 Sat Monitoring; Complete Time: 18:10 [facility] EC:49 Rate is 86 beats/min. Rhythm is irregularly irregular. QRS [place] is Normal. [place] interval svetlana is normal. QRS interval is normal. QT interval is normal. No Q waves. T waves are Normal. No ST changes noted. Clinical impression: Atrial Fibrillation. Interpreted by me. Reviewed by me. Administered Medications: 20:27 Drug: Zofran (Ondansetron) 4 mg Route: IVP; Site: right antecubital; ll2 20:27 Drug: Pepcid 20 mg Route: IVP; Site: right antecubital; ll2 20:27 Drug: fentaNYL Patch (25 mcg/hr) 1 patches Route: Transdermal; Site: affected area; ll2 20:28 Not Given (Physician Discretion): fentaNYL (PF) 12.5 mcg IVP once; RASS on ADMIN: ll2 Combtv4, Very Agttd3, Agttd2, Rstlss1, AlertClm0, Drwsy-1, Lt Sdtn-2, Mod Sdtn-3, Dp Sdtn-4, UnArsble-5 20:28 Not Given (Physician Discretion): fentaNYL (PF) 12.5 mcg IVP once; RASS on ADMIN: ll2 Combtv4, Very Agttd3, Agttd2, Rstlss1, AlertClm0, Drwsy-1, Lt Sdtn-2, Mod Sdtn-3, Dp Sdtn-4, UnArsble-5 20:29 Not Given (Physician Discretion): NS 0.9% 1000 ml IV at 125 ml/hr continuous ll2 Disposition: 03/01/20 19:34 Discharged to Home. Impression: Fall due to bumping against object, Pain in left hip, Sprain of ankle, Anterior subluxation of right sternoclavicular joint, Pain in left knee. - Condition is Stable. - Discharge Instructions: Ankle Sprain, Joint Pain, Musculoskeletal Pain, Knee Pain, Cryotherapy, [id number]-[id number], Fall Prevention in the Home, Feiv-le-Bloo, Hip Pain, Ankle Pain, Cryotherapy, Knee Pain, [id number]. - Medication Reconciliation Form, Thank You Letter, Antibiotic Education, Prescription Opioid Use form. - Follow up: Private Physician; When: 2 - 3 days; Reason: Recheck today's complaints, Continuance of care, Re-evaluation by your physician. Follow up: Shan Badillo MD; When: 2 - 3 days; Reason: Recheck today's complaints, Continuance of care, Re-evaluation by your physician. - Problem is new. - Symptoms have improved. Signatures: Dispatcher [employer] EDVicente Cole MD MD cha Waters, Shelly, SKEIN YARN DRIER-C SKEIN YARN DRIER-Csnw Eunice Monsalve RN RN ca1 Sabrina Mac RN RN ll2 Katelyn Daniels RN RN zb Corrections: (The following items were deleted from the chart) 19:36 19:34 03/01/2020 19:34 Discharged to Home. Impression: Fall due to bumping against svetlana object; Pain in left hip; Sprain of ankle; Anterior subluxation of right sternoclavicular joint; Pain in left knee. Condition is Stable. Forms are Medication Reconciliation Form, Thank You Letter, Antibiotic Education, Prescription Opioid Use. Follow up: Private Physician; When: 2 - 3 days; Reason: Recheck today's complaints, Continuance of care, Re-evaluation by your physician. Problem is new. Symptoms have improved. [facility] 20:04 19:32 Ankle Left 3 View+RAD.RAD.BRZ ordered. [facility] EDTN 21:05 19:36 03/01/2020 19:34 Discharged to Home. Impression: Fall due to bumping against zb object; Pain in left hip; Sprain of ankle; Anterior subluxation of right sternoclavicular joint; Pain in left knee. Condition is Stable. Discharge Instructions: Ankle Sprain, Joint Pain, Musculoskeletal Pain, Knee Pain, Cryotherapy, Sboq-rh-Rtse, Fall Prevention in the Home, Xoci-cs-Yndg, Hip Pain, Ankle Pain, Cryotherapy, Knee Pain, Gijz-yy-Slyo. Forms are Medication Reconciliation Form, Thank You Letter, Antibiotic Education, Prescription Opioid Use. Follow up: Private Physician; When: 2 - 3 days; Reason: Recheck today's complaints, Continuance of care, Re-evaluation by your physician. Follow up: Shan Badillo; When: 2 - 3 days; Reason: Recheck today's complaints, Continuance of care, Re-evaluation by your physician. Problem is new. Symptoms have improved. [facility]
[2020-03-01] MEDS ORDERED: FENTANYL 25 MCG/PATCH TD ONE (20:20)
--- NOTE | 2020-03-01 20:40 | RAD REPORT ---
EXAM DESCRIPTION: [place] Left03/01/2020 8:31 pm CLINICAL HISTORY: Left leg pain status post injury FINDINGS: No fracture is seen. Osteoporosis
--- NOTE | 2020-03-01 20:42 | RAD REPORT ---
EXAM DESCRIPTION: RAD - Foot Left 3 View - 03/01/2020 8:31 pm CLINICAL HISTORY: Left Foot pain status post injury FINDINGS: No fracture or dislocation is seen.
[2020-03-01 21:10] VITALS: TEMP 98.5
[2020-03-01 21:12] VITALS: BP 135/78; O2SAT 96
--- NOTE | 2020-03-02 08:18 | EKG ---
Test Date: 2020-03-01 Test Time: 19:15:33 Data Transcriber: ANDERSON MEASUREMENT RESULTS: Intervals: Rate: 86 VT: QRSD: 90 QT: 392 QTc: 469 [place]: P: VT: QRS: 54 T: -83 INTERPRETIVE STATEMENTS: Atrial fibrillation Septal infarct, age undetermined ST & T wave abnormality, consider anterior ischemia or digitalis effect Abnormal ECG Compared to ECG 11/11/2019 10:51:03 ST (T wave) deviation now present Possible ischemia now present Myocardial infarct finding still present Electronically Signed On 03-02-20 08:17:24 MAINTENANCE EQUIPMENT OPERATOR by Cole Milton
== END 2020-03-01 21:05 | disposition home or self-care (01) ==
LOC: ER 17:10
DX: S43.211A Anterior subluxation of right sternoclavicular joint, initial encounter (principal); S93.402A Sprain of unspecified ligament of left ankle, initial encounter; M25.562 Pain in left knee; W01.0XXA Fall on same level from slipping, tripping and stumbling without subsequent striking against object, initial encounter; Y93.89 Activity, other specified; Y92.002 Bathroom of unspecified non-institutional (private) residence as the place of occurrence of the external cause; Z79.01 Long term (current) use of anticoagulants; I10 Essential (primary) hypertension; I48.91 Unspecified atrial fibrillation
CPT/HCPCS: 93005; 85025; 80048; 36415; 83735; 85610; 82565; 80076; 84484; 83690; 83880; 70450; 72125; 71260; 74177; 71045; 72170; 73502; 73630; 73552; 73590; 96375; 96374; 99284; Q9967; J7030; J2405; G0390; J3010

== ENCOUNTER 2020-03-12 12:55 | Emergency (ER) | payer OTHER ==
--- OUTSIDE RECORDS SUMMARY | 2020-03-12 14:40 | XMS REPORT | Clinical Summary ---
:1935 Author Organization [facility] Address [address] [place] [address] Care Team Providers Name Role Phone Pcp, [...] (HCC) Niru Velez MD 07/30/2019 Travel after 03/12/2019 Social History Tobacco Use Types Packs/Day Years [...] PNEUMOCOCCAL 65+ YRS (1 of 1 - [id number]) 2001 Medicare IPPE (WELCOME TO MEDICARE) [...] are i n the results section. after 03/12/2019 Results RHYTHM STRIP - SCAN (08/04/2019 2:40 PM CDT) Narrative Performed At This result has an attachment that is no t available. CBC with platelet count + automated diff (08/01/2019 3:52 AM CDT)Only the most recent of2 resultswithin the time period is included. Pathologist Sig nature WBC 6.7 3.5 - 10.5 [facility] K/L [facility] RBC 4.28 3.93 - 5.22 [facility] M/L [facility] Hemoglobin 12.0 11.2 - 15.7 [facility] GM/DL [facility] Hematocrit 39.3 34.1 - 44.9 % [facility] MCV 91.8 79.4 - 94.8 fL [facility] MCH 28.0 25.6 - 32.2 pg [facility] MCHC 30.5 (L) 32.2 - 35.5 [facility] GM/DL [facility] RDW 13.9 11.7 - 14.4 % [facility] Platelets 249 150 - 450 K/CU [facility] MPV 10.7 9.4 - 12.3 fL [facility] nRBC 0 0 - 0 /100 WBC [facility] % Neutros 49 % [facility] % Lymphs 34 % [facility] % Monos 13 % [facility] % Eos 3 % [facility] % Baso 1 % [facility] # Neutros 3.24 1.56 - 6.13 [facility]/L [facility] # Lymphs 2.24 1.18 - 3.74 [facility]/L [facility] # Monos 0.88 (H) 0.24 - 0.36 [facility]/L [facility] # Eos 0.23 0.04 - 0.36 [facility]/L [facility] # Baso 0.07 0.01 - 0.08 [facility]/L [facility] Immature 0 0 - 1 % [facility] Granulocytes-[facility] Specimen Blood Performing Organization Address City/[facility]/Zipcode Phone Number [address] [address] CENTER Prealbumin (08/01/2019 3:52 AM CDT) Pathologist Sig nature Prealbumin 10 (L) 14 - 45 mg/dL [facility] Specimen Blood Narrative Performed At Mission Manager ID - PIAYA L [facility] ICAL CENTER Performing Organization Address City/State/Zipcode Phone Number [address] [address] CENTER Phosphorus (08/01/2019 3:52 AM CDT)Only the most recent of2 resultswithin the time period is included. Pathologist Sig nature Phosphorus 3.5 2.3 - 4.7 mg/dL [facility] Specimen Blood Narrative Performed At Mission Manager ID - PIAYA L [facility]ENTER Performing Organization Address City/State/Zipcode Phone Number [address] [address] CENTER Magnesium (08/01/2019 3:52 AM CDT)Only the most recent of2 resultswithin the time period is included. Pathologist Sig nature Magnesium 1.5 (L) 1.6 - 2.6 mg/dL [facility] Specimen Blood Narrative Performed At Mission Manager ID - PIAYA L [facility] Performing Organization Address [facility]/Zipcode Phone Number [facility] [address] [place] [address] CENTER Hepatic function panel (08/01/2019 3:52 AM CDT)Only the most recent of2 results within the time period is included. Pathologist Sig nature Protein, Total 5.9 (L) 6.0 - 8.3 gm/dL [facility] Albumin 3.3 (L) 3.5 - 5.0 g/dL [facility] Total Bilirubin 0.4 0.2 - 1.2 mg/dL [facility] Bilirubin, Direct 0.2 0.1 - 0.5 mg/dL [facility] Alkaline Phosphatase 112 40 - 150 U/L [facility] AST 16 5 - 34 U/L [facility] ALT 10 6 - 55 U/L [facility] Specimen Blood Narrative Performed At Mission Manager ID - JENI Young [facility] Performing Organization Address [facility]/Zipcode Phone Number [facility] [address] [place] [address] CENTER Basic metabolic panel (08/01/2019 3:52 AM CDT)Only the most recent of2 results within the time period is included. Sodium 142 136 - 145 meq/L [facility] Potassium 3.9 3.5 - 5.1 meq/L [facility] Chloride 107 98 - 107 meq/L [facility] CO2 27 22 - 29 meq/L [facility] BUN 21 7 - 21 mg/dL [facility] Creatinine 0.97 0.57 - 1.25 [facility] mg/dL [facility] Glucose 99 70 - 105 mg/dL [facility] Calcium 8.7 8.4 - 10.2 [facility] mg/dL [facility] EGFR 55Comment: ESTIMATED mL/min/1.73 sq [facility] GFR IS NOT m [facility] ACCURATE [place] CREATININE CLEARANCE IN PREDICTING GLOMERULAR FILTRATION RATE. ESTIMATED GFR IS NOT APPLICABLE FOR DIALYSIS PATIENTS. Specimen Blood Narrative Performed At Mission Manager ID - JENI Young [facility] CENTER Performing Organization Address City/State/Zipcode Phone Number [facility] [address] [place] [address] CENTER Urinalysis w/Microscopic + Reflex to Culture (07/31/2019 2:53 PM CDT) Pathologist Sig nature Color, UA Yellow [facility] Clarity, UA Clear [facility] Specific [place], 1.030 1.001 - 1.035 [facility] pH, UA 5.0 5.0 - 8.0 [facility] Protein, UA Negative Negative [facility] Glucose, UA Negative Negative [facility] Ketones, UA Negative Negative [facility] Bilirubin, UA Negative Negative [facility] Blood, UA Negative Negative [facility] Nitrite, UA Negative Negative [facility] Leukocytes, UA Large (A) Negative [facility] Urobilinogen, UA 0.2 0.2 - 1.0 mg/dL [facility] RBC, UA 1 /HPF [facility] WBC, UA 70 /HPF [facility] Mucus Rare [facility] Squam Epithel, UA 1 /HPF [facility] Specimen Source [facility] Specimen Urine Narrative Performed At Mission Manager ID - [auto] [facility] Mission Manager ID - tech Performing Organization Address [facility] Hospitalcode Phone Number [facility] [address] [place] [address] CENTER Urine culture (07/31/2019 2:53 PM CDT) Pathologist Sig nature Result 40-49,000 col/mL [facility] Enterobacter cloacae [facility] complex (A) Specimen Urine - Urine (substance) Narrative Performed At 80-89,000 col/mL skin betty [facility] <10,000 col/mL Gram negative nicky (of [...] Sulfamethoxazole <=20: Susceptible complex Performing Organization Address [facility] Hospitalcode Phone Number [place] [phone] [place] [address] CENTER TSH/Free T4 If Indicated (07/31/2019 5:12 AM CDT) Pathologist Sig nature TSH 1.079 0.350 - 4.940 uIU/mL [facility] Specimen Blood Narrative Performed At Mission Manager ID - [facility] Performing Organization Address City/[facility]/Zipcode Phone Number [place] [phone] [place] [address] CENTER Factor 5 Leiden PCR [...] results monitored by Kizzy Rojo MD, PhD, [facility], [facility]. 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 It has not been cleared or approved by FDA. This assay has been validated pursuant to the CLIA regulations and is used for clini lakisha purposes. Health care providers, please contact your local [employer]' genetic counselor or call [phone] ([phone]) for as sistance with interpretation of these results. Specimen Blood Narrative Performed At Performing Lab [employer] [facility] [employer] [facility] te [address] [place] [address] Aysha Waller MD, PhD, [employer] Performing Organization Address City/State/Zipcode Phone [place] [place] [address] INCORPORATED [address] [facility] after 03/12/2019 Insurance Payer Benefit Plan / Subscriber ID Effective Phone Address T ype Group Dates HUMANA - HUMANA [id number] 2019-Pre[employer] Maps Contracted MEDICARE MGD MEDICARE ADV nt CARE Advance Directives For more information, please contact: [phone] Code Status Date Activated Date Inactivated Comments Full Code 07/31/2019 1:13 AM 08/01/2019 4:04 PM This code status was determined by: Patient
--- OUTSIDE RECORDS SUMMARY | 2020-03-12 14:41 | XMS REPORT | Continuity of Care Document ---
:1935 Author Organization [facility] t Address [address] [place] [address] Care Team Providers Name Role Phone Pcp MD Primary Care Physician Unavailable RONEL COOLEY Attending Clinician Unavailable Ronel Cooley MD Attending Clinician Michael GUDINO Attending Clinician Lila Velez MD Attending Clinician RONEL COOLEY Admitting Clinician Unavailable Payers Payer Name Policy Type Policy Effective Date Expiration Date Sour ce Number HUMANA - MEDICARE [id number] [address] [facility] MGD CAREHUMANA 00:00:00 - Medical MEDICARE Center [id number]/02/27 020-PresentMaps Contracted Problems Condition Condition Condition Status [...] makes [facility] - nce 00:00: her [facility] 00 Center Codeine Adverse Active Info Not [facility] S[facility] Reaction Available [facility] Social History Social Habit Start Date Stop Date Quantity Comments Source History SDOH [facility] - [facility] Std Drinks Medica l Center History SDOH [facility] - Alcohol Binge Medical Andrew ter Sex Assigned At [facility] kes [facility] Tobacco use and 2019-07-31 2019-07-[address] [facility] kes - exposure 00:00:00 00:00:00 [facility] Alcohol intake 2019-07-31 2019-07-[address] [facility] St Fitz es - 00:00:00 00:00:00 non-drinker of Medical Ce nter alcohol (finding) History SDOH 2019-07-30 2019-07-[address] [facility] - Alcohol Frequency 00:00:00 00:00:00 [facility] History of tobacco 1989-07-29 Current sm[facility] Smoking Status Start Date Stop Date Source Former smoker 2019-07-31 00:00:00 2019-07-31 00:00:00 [facility] Medications Ordered Filled Start Stop Current Ordering Indication Dosage Frequency Signature Comments Components Source Medication Medication Date Date Medication? Clinician (SIG) Name Name atenoloL Yes 25mg QD Take [address] (TENORMIN) 6-05 by [facility] - 25 MG 14:04: daily. Medical tablet [address] [place] hydrOXYzine Yes 10mg Take [address] (ATARAX) 10 6-05 by mouth Luke s - MG tablet 14:04: as needed. Me dical [address] [place] citalopram Yes 20mg QD Take [address] (CELEXA) 20 6-05 by mouth Luke s - MG tablet 14:04: daily. Medica l 35 [place] apixaban 2020- No 5mg QD Take [address] (ELIQUIS) 5 6-05 06-05 by mouth [facility] - mg Tab 11:30: 00:00 daily. Medical tablet 52 :00 Center apixaban 2019-0 2020- No 5mg Q.5D Take 1 [facility] [...] Source Systolic blood 2019-08-01 07:25:00 104 mm[Hg] [facility] Diastolic blood 2019-08-01 07:25:00 50 mm[Hg] [facility] S [facility] Heart rate 2019-08-01 07:25:00 76 /min [facility] Body temperature 2019-08-01 07:25:00 36.78 [facility]anca [facility] Respiratory rate 2019-08-01 07:25:00 18 /min [facility] Oxygen saturation in 2019-08-01 07:25:00 98 /min [facility] - Arterial blood by Medical Ce nter Pulse oximetry Body height 2019-07-30 21:45:00 170.2 cm [facility] Body weight 2019-07-30 21:45:00 99.791 kg [facility] BMI 2019-07-30 21:45:00 34.46 kg/m2 [facility] Procedures Procedure Date / Time Performed Performing Clinician [facility] e RHYTHM STRIP - SCAN 2019-08-04 14:40:16 [facility] BASIC METABOLIC PANEL 2019-08-01 03:52:00 [facility] (7) [facility] HEPATIC FUNCTION PANEL 2019-08-01 03:52:00 [facility] MAGNESIUM 2019-08-01 03:52:00 [facility] PHOSPHORUS 2019-08-01 03:52:00 [facility] PREALBUMIN 2019-08-01 03:52:00 Niru Velez [facility] CBC W/PLT COUNT & AUTO 2019-08-01 03:52:00 [facility] URINE CULTURE 2019-07-31 14:53:00 Niru Velez [facility] URINALYSIS W/ REFLEX 2019-07-31 14:53:00 [facility]z [facility] - URINE CULTURE [facility] BASIC METABOLIC PANEL 2019-07-31 05:12:00 [facility] (7) [facility] HEPATIC FUNCTION PANEL 2019-07-31 05:12:00 [facility] MAGNESIUM 2019-07-31 05:12:00 [facility] PHOSPHORUS 2019-07-31 05:12:00 [facility] FACTOR 5 LEIDEN PCR 2019-07-31 05:12:00 [facility] (THROMBOTIC RISK) [facility] TSH/FREE T4 IF INDICATED 2019-07-31 05:12:00 [facility] CBC W/PLT COUNT & AUTO 2019-07-31 05:12:00 [facility] Plan of Care Planned Activity Planned Date Details Comments Source Future Scheduled 2019-10-28 INFLUENZA VACCINE (#1) C [facility] - Test 00:00:00 [code = INFLUENZA Medical Ce nter VACCINE (#1)] Future Scheduled 2019-02-26 Medicare IPPE (WELCOME C [facility] - Test 00:00:00 TO MEDICARE) [code = [facility] Medicare IPPE (WELCOME TO MEDICARE)] Future Scheduled 2001 PNEUMOCOCCAL 65+ [facility] - Test 00:00:00 (1 of [address] - [facility] [id number] PCV13) [code = PNEUMOCOCCAL 65+ YRS (1 of 1 - [id number] PCV13)] Encounters Start End Encounter Admission Attending Care Care Encounter Source Date/Time Date/Time Type Type Clinicians Facility Department ID 2019-12-09 2019-12-[address] [facility] [id number] [facility] 2019-11-25 2019-11-[address] [facility] [id number] [facility] 2019-11-10 2019-11-[address] [facility] [id number] [facility]00 [facility] Outpat[facility] Clinics 2019-10-15 2019-10-15 [facility] [id number] 16:38:00 16:38:00 t [employer] - [facility] l Medicine Outpati ent Clinics 2019-10-08 2019-10-08 [facility] [id number] 16:14:00 16:14:00 t [employer] - [employer] [facility] Medicine Outpati ent Clinics 2019-10-08 2019-10-08 [facility] [id number] 15:15:00 15:15:00 t [employer] - [employer] [facility] Medicine Outpati ent Clinics 2019-09-11 2019-09-11 [facility] [id number] 15:01:00 15:01:00 t [employer] [facility] Medicine Outpati ent Clinics 2019-08-21 2019-08-21 [facility] [id number] 09:48:00 09:48:00 t [employer] - [employer] [facility] Medicine Outpati ent Clinics 2019-08-06 2019-08-06 [facility] [id number] 16:00:00 16:00:00 t [employer] [facility] Medicine Outpati ent Clinics 2019-07-30 2019-07-30 [facility] [id number] 14:27:00 14:27:00 t [employer] [facility] Medicine Outpati ent Clinics 2019-07-29 2019-07-29 [facility] [id number] 11:45:00 11:45:00 t [employer] - [employer] [facility] Medicine Outpati ent Clinics 2019-07-16 2019-07-16 [facility] [id number] 13:58:00 13:58:00 t [employer] [facility] Medicine Outpati ent Clinics 2019-05-29 2019-05-29 [facility] [id number] 13:15:00 13:15:00 t [employer] [facility] Results Test Description Test Time Test Comments Results Result Comments Source Factor 5 Leiden PCR (thrombotic risk) 2019-08-05 11:59:00 Test Item Value Reference Range Interpretation Comme nts Factor V Leiden Mutation SEE BELOW RES ULT: FACTOR V LEIDEN (test code = 3493739) (R506Q ) VARIANT NOT DETECTED Interpretation (test code = SEE BELOW INTERPRETATION: This 3334285) individual is n egative (normal) for th e Factor V Leiden(R506Q) v ariant in the Factor V gene. Increased risk of thrombophili a can becaused by a variety of genetic and non-genetic fac tors not screened for by this assay. Laboratory test ing supervised and results mon itored by Kizzy Rojo MD, PhD, FAC, [facility]. MUTATION ANALYS IS:The Factor V Leiden (R506Q) mutation [NM [id number]: c.160 1G>A (p.R534Q)] inthe Factor V gene [...] analytical perf ormance characteristics havebeen determined by [employer] [facility] Harley holland.It has not been cleared or approved by FDA. This assay has been validatedpursua nt to the CLIA regulations and is used for clinical purpos es. Health care providers, plea se contact your local [facility]' geneticcounselo r or call [phone] ([phone]) for assistance withinterpretat ion of these results. DONELL (test code = DONELL) Performing Lab EZ [facility] [address] [place] [address] Aysha Waller MD, PhD, TIFF [facility] 05:37:00 Test Item Value Reference Range Interpretation Comments Prealbumin (test code = 10 mg/dL 14-45 L 94575-4) DONELL (test code = DONELL) [employer] Assembler ID - JENI Young Lab Interpretation (test Abnormal code = 59858-2) [facility] 05:37:00 Test Item Value Reference Range Interpretation Comments PREALBUMIN (BEAKER) (test code = 10 mg/dL 14-45 L 586) [employer] Assembler ID - JENI AGARWALasic metabolic [id number] 05:08:00 Test Item Value Reference Range Interpretation Comments Sodium (test code = 142 meq/L 329-804 2451-2) Potassium (test 3.9 meq/L 3.5-5.1 code = 2823-3) Chloride (test code 107 meq/L 98-107 = 2075-0) CO2 (test code = 27 meq/L 22-29 2028-9) BUN (test code = 21 mg/dL 7-21 3094-0) Creatinine (test 0.97 mg/dL 0.57-1.25 code = 2160-0) Glucose (test code 99 mg/dL 70-105 = 2345-7) Calcium (test code 8.7 mg/dL 8.4-10.2 = 90372-1) EGFR (test code = 55 mL/min/1.73 [place] [address]-2) NOT ACCURATE CREATININE CLEARANCE IN PREDICTING GLOMERULAR FILTRATION RATE . ESTIMATED GFR I S NOT APPLICABLE FOR DIALYSIS PATIEN TS. DONELL (test code = Pocket Secretary Assembler ID - DONELL) JENI Young [facility] Hospital[facility]atic function [id number] 05:08:00 Test Item Value Reference Range Interpretation Comments Protein, Total (test code 5.9 6.0- 8.3 gm/dL L = 2885-2) Albumin (test code = 3.3 g/dL 3.5-5 L 97534-3) Total Bilirubin (test code 0.4 mg/dL 0.2-1.2 = 1975-2) Bilirubin, Direct (test 0.2 mg/dL 0.1-0.5 code = 1968-7) Alkaline Phosphatase (test 112 U/L 40-150 code = 6768-6) AST (test code = 1920-8) 16 U/L 5-34 ALT (test code = 1742-6) 10 U/L 6-55 DONELL (test code = DONELL) [employer] Assembler ID - JENI L Lab Interpretation (test Abnormal code = 49202-6) [facility] 05:08:00 Test Item Value Reference Range Interpretation Comments Magnesium (test code = 1.5 mg/dL 1.6-2.6 L 60482-4) DONELL (test code = DONELL) [employer] Assembler ID - CLAIREIVY L Lab Interpretation (test Abnormal code = 30998-7) [facility] 05:08:00 Test Item Value Reference Range Interpretation Comments Phosphorus (test code = 3.5 mg/dL 2.3-4.7 2777-1) DONELL (test code = DONELL) [employer] As[employer]er ID - CLAIREIVY L Lab Interpretation (test Normal code = 45090-1) [facility]2020-06-05 05:08:00 Test Item Value Reference Range Interpretation Comments PHOSPHORUS (BEAKER) (test code = 3.5 mg/dL 2.3-4.7 604) [employer] Assembler ID - JENI [id number] 05:08:00 Test Item Value Reference Range Interpretation Comments MAGNESIUM (BEAKER) (test code = 1.5 mg/dL 1.6-2.6 L 627) [employer] As[employer]er ID - JENI LBASIC METABOLIC [id number] 05:08:00 Test Item Value Reference Range Interpretation [...] S NOT APPLICABLE FOR DIALYSIS PATIEN TS. [employer] Assembler ID - JENI LHEPATIC FUNCTION [id number] 05:08:00 Test Item Value Reference Range Interpretation [...] (test code = 10 U/L 6-55 347) [employer] As[employer]er ID [employer] LCBC with platelet count + automated [id number] 05:00:00 Test Item Value Reference Range Interpretation [...] 450 K/CU MM MPV (test code = 17756-3) 10.7 fL 9.4-12.3 nRBC (test code = [...] 2801) Lab Interpretation (test code = Abnormal 12950-2) [facility] W/PLT COUNT & AUTO [id number] 05:00:00 Test Item Value Reference Range Interpretation [...] = 2801) Urinalysis w/Microscopic + Reflex to [id number] 15:12:00 Test Item Value Reference Range Interpretation Comments Color, UA (test code = Yellow 5778-6) Clarity, UA (test code = Clear 5767-9) Specific [place], UA (test 1.030 1.001-1.035 code = 5811-5) pH, UA (test code = 5.0 5.0-8.0 5803-2) Protein, UA (test code = Negative Negative 95389-2) Glucose, UA (test code = Negative Negative 365) Ketones, UA (test code = Negative Negative 2514-8) Bilirubin, UA (test code = Negative Negative 28775-2) Blood, UA (test code = Negative Negative 39993-9) Nitrite, UA (test code = Negative Negative 5802-4) Leukocytes, UA (test code Large Negative A = 5799-2) Urobilinogen, UA (test 0.2 mg/dL 0.2-1 code = 51274-0) RBC, UA (test code = 1 /HPF 49038-9) WBC, UA (test code = 70 /HPF 5821-4) Mucus (test code = 8247-9) Rare Squam Epithel, UA (test 1 /HPF code = 92039-5) Specimen Source (test code = 2795) DONELL (test code = DONELL) [employer] Assembler ID - [auto]Pocket Secretary Assembler ID - tech Lab Interpretation (test Abnormal code = 17256-9) [facility] W/ REFLEX URINE [id number] 15:12:00 Test Item Value Reference Range Interpretation [...] = 516) SOURCE(BEAKER) (test code = 2795) [employer] Assembler ID - [auto][employer] Assembler ID - techTSH/Free T4 If [id number] 06:38:00 Test Item Value Reference Range Interpretation Comments TSH (test code = 33057-8) 1.079 0.350- 4.940 uIU/mL DONELL (test code = DONELL) [employer] Assembler ID - LA Lab Interpretation (test Normal code = 90732-1) [facility] HospitalTSH/FREE T4 IF [id number] 06:38:00 Test Item Value Reference Range Interpretation Comments THYROID STIMULATING HORMONE 1.079 uIU/mL 0.350-4.940 (BEAKER) (test code = 772) [employer] Assembler ID - [id number] 06:13:00 Test Item Value Reference Range Interpretation Comments PHOSPHORUS (BEAKER) (test code = 3.9 mg/dL 2.3-4.7 604) [employer] Assembler ID - [id number] 06:13:00 Test Item Value Reference Range Interpretation Comments MAGNESIUM (BEAKER) (test code = 1.7 mg/dL 1.6-2.6 627) [employer] Assembler ID - LABASIC METABOLIC [id number] 06:13:00 Test Item Value Reference Range Interpretation [...] S NOT APPLICABLE FOR DIALYSIS PATIEN TS. Pocket Secretary Assembler ID - LAHEPATIC FUNCTION [id number] 06:13:00 Test Item Value Reference Range Interpretation [...] (test code = 11 U/L 6-55 347) [employer] Assembler ID - LACBC W/PLT COUNT & AUTO [id number] 05:38:00 Test Item Value Reference Range Interpretation [...] % 0-1 PERCENT (BEAKER) (test code = 6913)
--- NOTE | 2020-03-12 18:06 | RAD REPORT ---
EXAM DESCRIPTION: MRI - Pelvis Wo Cont - 03/12/2020 5:57 pm CLINICAL HISTORY: pain Left-sided back and pelvic pain. Status post fall. COMPARISON: No comparisons FINDINGS: Significant edema signal is seen involving the left sacral ala. Abnormal marrow signal is also seen in the S2 anterior S1 sacral levels. Hypointense linear T1 signal is seen in the inferior l eft sacral ala. Mild blooming artifact is seen of the left hip. The right sacral ala appears intact. Right hip is int act. Moderate degenerate changes present lower lumbar spine. Advanced colonic diverticulosis. IMPRESSION: Marked edema signal involving the left sacral ala likely represents sacral insufficiency fracture. Marrow edema is seen extending into the S1 and S2 levels of the sacrum.
[2020-03-12] MEDS ORDERED: HYDROCODONE/APAP 7.5/325 MG TAB ONE (19:00)
--- NOTE | 2020-03-12 20:47 | RAD REPORT ---
EXAM DESCRIPTION: US - Extrem Venous W Compress Valentin - 03/12/2020 8:41 pm CLINICAL HISTORY: burning/cool feet Bilateral leg edema and swelling. COMPARISON: Extremity Venous Uni Ltd dated 07/30/2019 TECHNIQUE: Real-time sonographic interrogation of the left and right lower extremity deep venous sys tems was performed. FINDINGS: Small old thrombus is seen in the left popliteal vein. Otherwise, normal compressibility, flow augmentation, phasic flow and spontaneous flow is identified in both the left and right lower ex tremity deep venous systems. IMPRESSION: No acute DVT seen. Small old thrombus in the left popliteal vein seen.
--- NOTE | 2020-03-12 20:50 | RAD REPORT ---
EXAM DESCRIPTION: US - Lower Extremity Arterial Bilat - 03/12/2020 8:41 pm CLINICAL HISTORY: cool;Pain Leg pain, claudication COMPARISON: Lower Extremity Artery [facility] dated 07/30/2019 TECHNIQUE: Bilateral lower extremity arterial Doppler examination was performed with sj eubanks FINDINGS: Triphasic and biphasic waveforms seen involving proximal vessels bilaterally the level of the poplite al arteries. Infrapopliteal vessels demonstrate moderate disease in a symmetric fashion with blunted waveforms and reduced amplitude. No occlusion or near occlusion seen. IMPRESSION: Moderate infrapopliteal peripheral vascular disease is seen in symmetric fashion.
--- NOTE | 2020-03-12 21:00 | EDPHYS ---
Physician Documentation [facility] Name: Jeannie Cobb Age: 84 yrs Sex: Female : 1935 Arrival Date: 03/12/2020 Time: 13:01 Bed 23 Private MD: ED Physician Elliot Helton HPI: 03/12 18:41 This 84 yrs old Female presents to ER via Wheelchair with complaints of Back kdr Pain. 18:41 The patient presents with pain that is acute. kdr 18:42 The symptoms are located in the Left buttock. kdr 18:42 Onset: The symptoms/episode began/occurred suddenly, The patient has had several falls kdr in the last few weeks the last was on the of this month. she had a prior ED visit and no fractures were found. Now family relates that she is also having burning in her feet. She denies any other injuries or pain at this time and is reluctant to take PO Pain medication. The pain does not radiate. Associated signs and symptoms: The patient has no apparent associated signs or symptoms. The problem was sustained from unknown cause. Modifying factors: The patient symptoms are alleviated by nothing, the patient symptoms are aggravated by movement, supine position. Severity of symptoms: At their worst the symptoms were moderate, severe, in the emergency department the symptoms are unchanged. The patient has not experienced similar symptoms in the past. The patient has been recently seen at the [facility] Emergency Department, last week. Historical: - Allergies: 13:15 Codeine; ll1 - PMHx: 13:15 Atrial Fib; Hypertension; ll1 - PSHx: 13:15 L femur surgery; Hip replacement; Knee surgery; ll1 - Immunization history:: Flu vaccine is not up to date. - Social history:: Smoking status: Patient denies any tobacco usage or history of. ROS: 18:42 Constitutional: Negative for fever, chills, and weight loss, Eyes: Negative for injury, kdr pain, redness, and discharge, ENT: Negative for injury, pain, and discharge, Neck: Negative for injury, pain, and swelling, Cardiovascular: Negative for chest pain, palpitations, and edema, Respiratory: Negative for shortness of breath, cough, wheezing, and pleuritic chest pain, Abdomen/GI: Negative for abdominal pain, nausea, vomiting, diarrhea, and constipation, Back: Negative for injury and pain, : Negative for injury, bleeding, discharge, and swelling, Skin: Negative for injury, rash, and discoloration, Neuro: Negative for headache, weakness, numbness, tingling, and seizure activity. Psych: Negative for depression, anxiety, suicide ideation, homicidal ideation, and hallucinations, Allergy/Immunology: Negative for hives, rash, and allergies, Endocrine: Negative for neck swelling, polydipsia, polyuria, polyphagia, and marked weight changes, Hematologic/Lymphatic: Negative for swollen nodes, abnormal bleeding, and unusual bruising. 18:42 MS/extremity: Positive for injury or acute deformity, decreased range of motion, pain, tenderness, of the left gluteus yassine, right leg and left leg. Exam: 18:42 Constitutional: This is a well developed, well nourished patient who is awake, alert, kdr and in no acute distress. Head/Face: Normocephalic, atraumatic. Eyes: Pupils equal round and reactive to light, extra-ocular motions intact. Lids and lashes normal. Conjunctiva and sclera are non-icteric and not injected. Cornea within normal limits. Periorbital areas with no swelling, redness, or edema. Neck: Trachea midline, no thyromegaly or masses palpated, and no cervical lymphadenopathy. Supple, full range of motion without nuchal rigidity, or vertebral point tenderness. No Meningismus. Chest/axilla: Normal chest wall appearance and motion. Nontender with no deformity. No lesions are appreciated. Cardiovascular: Regular rate and rhythm with a normal S1 and S2. No gallops, murmurs, or rubs. Normal PMI, no JVD. No pulse deficits. Respiratory: Lungs have equal breath sounds bilaterally, clear to auscultation and percussion. No rales, rhonchi or wheezes noted. No increased work of breathing, no retractions or nasal flaring. Abdomen/GI: Soft, non-tender, with normal bowel sounds. No distension or tympany. No guarding or rebound. No evidence of tenderness throughout. Skin: Warm, dry with normal turgor. Normal color with no rashes, no lesions, and no evidence of cellulitis. Neuro: Awake and alert, GCS 15, oriented to person, place, time, and situation. Cranial nerves II-XII grossly intact. Motor strength 5/5 in all extremities. Sensory grossly intact. Cerebellar exam normal. Normal gait. Psych: Awake, alert, with orientation to person, place and time. Behavior, mood, and affect are within normal limits. 18:42 Back: pain, that is moderate, of the left buttock, CVA tenderness, is absent, vertebral tenderness, is not appreciated. Vital Signs: 13:18 BP 112 / 71; Pulse 110; Resp 18; Temp 98.6; Pulse Ox 96% on R/A; Weight 97.52 kg; ll1 Height 5 ft. 7 in. (170.18 cm); Pain 8/10; 14:34 BP 114 / 66; Pulse 95; Resp 20; Pulse Ox 98% on R/A; vg1 15:00 BP 129 / 75; Pulse 90; Resp 18; Pulse Ox 99% on R/A; vg1 16:00 BP 130 / 63; Pulse 90; Resp 18; Pulse Ox 98% on R/A; vg1 17:40 BP 124 / 65; Pulse 86; Resp 18; Pulse Ox 98% on R/A; vg1 18:00 BP 135 / 64; Pulse 90; Resp 20; Pulse Ox 99% on R/A; vg1 19:00 BP 132 / 88; Pulse 105; Resp 18; Pulse Ox 98% on R/A; vg1 20:00 BP 144 / 83; Pulse 68; Resp 18; Pulse Ox 97% on R/A; vg1 21:00 BP 124 / 77; Pulse 76; Resp 18; Pulse Ox 98% on R/A; vg1 13:18 Body Mass Index 33.67 (97.52 kg, 170.18 cm) 1 MDM: 18:42 Data reviewed: vital signs, nurses notes, radiologic studies. Counseling: I had a kdr detailed discussion with the patient and/or guardian regarding: the historical points, exam findings, and any diagnostic results supporting the discharge/admit diagnosis, radiology results, the need for outpatient follow up. 20:55 Differential diagnosis: chronic back pain, Fracture Ligament Injury Osteoarthritis 7 Osteoporosis ruptured disc, spinal injury, sprain, vertebral fracture. Data interpreted: Pulse oximetry: on room air is 97 %. Interpretation: normal. Response to treatment: the patient's symptoms have markedly improved after treatment. 20:59 Patient medically screened. [facility] 03/12 17:25 Order name: Pelvis Wo Cont; Complete Time: 18:13 EDMS 03/12 18:41 Order name: US Extremity Venous W Compression Valentin; Complete Time: 20:53 kdr 03/12 18:41 Order name: US LE Arterial Bilateral; Complete Time: 20:53 kdr Administered Medications: 18:46 Drug: [place] (7.5 mg-325 mg) 1 tabs {Note: rass 0.} Route: PO; vg1 20:36 Follow up: Response: No adverse reaction; Pain is decreased; RASS: Alert and Calm (0) vg1 Disposition: 03/12/20 20:59 Discharged to Home. Impression: Fall-Mechanical, Sacral Fracture, Paresthesia-Bilateral Feet. - Condition is Stable. - Discharge Instructions: Simple Pelvic Fracture, Adult, Fall Prevention in the Home, [id number]. - Prescriptions for Tramadol 50 mg Oral Tablet - take 1 tablet by ORAL route every 8 hours as needed; 15 tablet. - Medication Reconciliation Form, Thank You Letter, Antibiotic Education, Prescription Opioid Use form. - Follow up: Private Physician; When: 1 - 2 days; Reason: Worsening of condition, Recheck today's complaints, Continuance of care, Re-evaluation by your physician. Follow up: Ramón Zazueta MD; When: 1 - 2 days; Reason: Worsening of condition, Recheck today's complaints. - Problem is an ongoing problem. - Symptoms have improved. Signatures: Dispatcher [employer] EDFL Aramis Lundberg MD MD kdr Garcia, Victoria, RN RN 1 Addy Boyer RN RN 1 Elliot Helton MD MD 7 Corrections: (The following items were deleted from the chart) 17:24 16:02 MRA Pelvis Wo Contr ordered. EDFL EDMS 21:02 20:59 03/12/2020 20:59 Discharged to Home. Impression: Fall-Mechanical; Sacral mh7 Fracture. Condition is Stable. Forms are Medication Reconciliation Form, Thank You Letter, Antibiotic Education, Prescription Opioid Use. Follow up: Private Physician; When: 1 - 2 days; Reason: Worsening of condition, Recheck today's complaints, Continuance of care, Re-evaluation by your physician. Follow up: Ramón Zazueta; When: 1 - 2 days; Reason: Worsening of condition, Recheck today's complaints. Problem is an ongoing problem. Symptoms have improved. mh7 21:20 21:02 03/12/2020 20:59 Discharged to Home. Impression: Fall-Mechanical; Sacral vg1 Fracture; Paresthesia-Bilateral Feet. Condition is Stable. Forms are Medication Reconciliation Form, Thank You Letter, Antibiotic Education, Prescription Opioid Use. Follow up: Private Physician; When: 1 - 2 days; Reason: Worsening of condition, Recheck today's complaints, Continuance of care, Re-evaluation by your physician. Follow up: Ramón Zazueta; When: 1 - 2 days; Reason: Worsening of condition, Recheck today's complaints. Problem is an ongoing problem. Symptoms have improved. mh7
--- NOTE | 2020-03-12 21:00 | ER ---
Nurse's Notes [facility] Name: Jeannie Cobb Age: 84 yrs Sex: Female : 1935 Arrival Date: 03/12/2020 Time: 13:01 Bed 23 Private MD: Diagnosis: Fall-Mechanical;Sacral Fracture;Paresthesia-Bilateral Feet Presentation: 03/12 13:16 Chief complaint: Patient states: 1. Fell 03/01/20. Still has severe left sided back pain ll1 since. Both feet have hot/poking pain to them. Sent in by her doctor for re evaluation. No new falls. 2. Slight cough with SOB for 2 weeks. Chief complaint:. Coronavirus screen: Client denies travel out of the [place] in the last 14 days. cough unrelated to allergies, difficulty breathing, fever, Client presents with at least one sign or symptom that may indicate coronavirus-19. Standard/surgical mask placed on the client. Ebola Screen: Patient denies travel to an Ebola-affected area in the 21 days before illness onset. 13:16 Method Of Arrival: Wheelchair ll1 13:18 Initial Sepsis Screen: Does the patient meet any 2 criteria? HR > 90 bpm. No. Patient's ll1 initial sepsis screen is negative. Does the patient have a suspected source of infection? Yes: Bone or joint infection. Risk Assessment: Do you want to hurt yourself or someone else? Patient reports no desire to harm self or others. Onset of symptoms was March 01, 2020. 13:18 Acuity: ETIENNE 3 ll1 Triage Assessment: 13:18 General: Appears in no apparent distress. Behavior is calm, cooperative. Pain: ll1 Complains of pain in L back Quality of pain is described as aching, Pain began 03/01/20 Aggravated by increased activity. Neuro: No deficits noted. Cardiovascular: No deficits noted. Respiratory: Reports cough that is Airway is patent Trachea midline Respiratory effort is even, unlabored, Respiratory pattern is regular, symmetrical, Onset: The symptoms/episode began/occurred 2 weeks. Musculoskeletal: Circulation, motion, and sensation intact. Capillary refill < 3 seconds, Reports pain in L back/ both feet. Injury Description: fall 03/01/20. Historical: - Allergies: 13:15 Codeine; ll1 - PMHx: 13:15 Atrial Fib; Hypertension; ll1 - PSHx: 13:15 L femur surgery; Hip replacement; Knee surgery; ll1 - Immunization history:: Flu vaccine is not up to date. - Social history:: Smoking status: Patient denies any tobacco usage or history of. Screenin:34 Abuse screen: Denies threats or abuse. Nutritional screening: No deficits noted. vg1 Tuberculosis screening: No symptoms or risk factors identified. Fall Risk Fall in past 12 months (25 points). No secondary diagnosis (0 pts). No IV (0 pts). Ambulatory Aid- Crutches/Cane/Walker (15 pts). Gait- Weak (10 pts.). Mental Status- Oriented to own ability (0 pts). Total Sanders Fall Scale indicates High Risk Score (45 or more points). Fall prevention measures have been instituted. Side Rails Up X 2 Placed Close to Nursing Station. Assessment: 14:25 General: Appears in no apparent distress. comfortable, Behavior is calm, cooperative. vg1 Pain: Complains of pain in left side of back. Pain currently is 9 out of 10 on a pain scale. Pain began since 03/01/20 Aggravated by repositioning. Neuro: Level of Consciousness is awake, alert, obeys commands, Oriented to person, place, time, situation. Cardiovascular: Patient's skin is warm and dry. Respiratory: Airway is patent Respiratory effort is even, unlabored, Respiratory pattern is regular, symmetrical, Breath sounds are clear bilaterally. Parent/caregiver reports the patient having cough that is productive. GI: Patient currently denies diarrhea, nausea, vomiting. : No signs and/or symptoms were reported regarding the genitourinary system. EENT: No signs and/or symptoms were reported regarding the EENT system. Derm: Skin is pink, warm \T\ dry. Musculoskeletal: Left foot drop. States has had this for about 3 years. 16:00 Reassessment: Patient appears in no apparent distress at this time. Patient and/or vg1 family updated on plan of care and expected duration. Pain level reassessed. Patient is alert, oriented x 3, equal unlabored respirations, skin warm/dry/pink. 18:28 Reassessment: Daughter Kesha [phone]. hb 18:47 Reassessment: Patient appears in no apparent distress at this time. Patient and/or vg1 family updated on plan of care and expected duration. Pain level reassessed. Patient is alert, oriented x 3, equal unlabored respirations, skin warm/dry/pink. Rates pain 8/10. 19:15 Reassessment: US at bedside. vg1 20:35 Reassessment: Patient appears in no apparent distress at this time. Patient and/or vg1 family updated on plan of care and expected duration. Pain level reassessed. Patient is alert, oriented x 3, equal unlabored respirations, skin warm/dry/pink. 21:19 Reassessment: No changes from previously documented assessment. vg1 Vital Signs: 13:18 BP 112 / 71; Pulse 110; Resp 18; Temp 98.6; Pulse Ox 96% on R/A; Weight 97.52 kg; ll1 Height 5 ft. 7 in. (170.18 cm); Pain 8/10; 14:34 BP 114 / 66; Pulse 95; Resp 20; Pulse Ox 98% on R/A; vg1 15:00 BP 129 / 75; Pulse 90; Resp 18; Pulse Ox 99% on R/A; vg1 16:00 BP 130 / 63; Pulse 90; Resp 18; Pulse Ox 98% on R/A; vg1 17:40 BP 124 / 65; Pulse 86; Resp 18; Pulse Ox 98% on R/A; vg1 18:00 BP 135 / 64; Pulse 90; Resp 20; Pulse Ox 99% on R/A; vg1 19:00 BP 132 / 88; Pulse 105; Resp 18; Pulse Ox 98% on R/A; vg1 20:00 BP 144 / 83; Pulse 68; Resp 18; Pulse Ox 97% on R/A; vg1 21:00 BP 124 / 77; Pulse 76; Resp 18; Pulse Ox 98% on R/A; vg1 13:18 Body Mass Index 33.67 (97.52 kg, 170.18 cm) ll1 ED Course: 13:01 Patient arrived in ED. ds1 13:15 Arm band placed on. ll1 13:18 Triage completed. ll1 14:23 Lavonne Sharif, RN is Primary Nurse. vg1 14:35 Patient has correct armband on for positive identification. Bed in low position. Call vg1 light in reach. Side rails up X2. 15:12 Aramis Lundberg MD is Attending Physician. kdr 17:27 Pelvis Wo Cont In Process Unspecified. EDMS 17:35 Patient moved back from CT. vg1 19:12 Attending Physician role handed off by Aramis Lundberg MD [facility] 19:12 Elliot Helton MD is Attending Physician. [facility] 20:42 US Extremity Venous W Compression Valentin In Process Unspecified. EDMS 20:42 US LE Arterial Bilateral In Process Unspecified. EDMS 20:57 Ramón Zazueta MD is Referral Physician. [facility] 21:20 No provider procedures requiring assistance completed. Patient did not have IV access vg1 during this emergency room visit. Administered Medications: 18:46 Drug: [place] (7.5 mg-325 mg) 1 tabs {Note: rass 0.} Route: PO; vg1 20:36 Follow up: Response: No adverse reaction; Pain is decreased; RASS: Alert and Calm (0) vg1 Outcome: 20:59 Discharge ordered by . 7 21:20 Discharged to home via wheelchair. vg1 21:20 Condition: stable 21:20 Discharge instructions given to patient, Instructed on discharge instructions, follow up and referral plans. medication usage, Demonstrated understanding of instructions, follow-up care, medications, Prescriptions given X 1. 21:20 Patient left the ED. vg1 Signatures: Dispatcher [employer] [facility] Aramis Lundberg MD MD kdr Karen Crooks ds1 Tracey Lozano, RN Lavonne Queen RN RN vg1 Addy Boyer RN RN 1 Elliot Helton MD MD [facility]
[2020-03-12 21:24] VITALS: TEMP 98.6
[2020-03-12 21:34] VITALS: BP 124/77; O2SAT 98
== END 2020-03-12 21:20 | disposition home or self-care (01) ==
LOC: ER 12:55
DX: S32.10XA Unspecified fracture of sacrum, initial encounter for closed fracture (principal); R20.2 Paresthesia of skin; W19.XXXA Unspecified fall, initial encounter; Y93.9 Activity, unspecified; Y92.9 Unspecified place or not applicable; Z88.5 Allergy status to narcotic agent; I10 Essential (primary) hypertension
CPT/HCPCS: 72195; 93925; 93970; 99284

== ENCOUNTER 2020-07-28 10:32 | Inpatient (IN) | payer OTHER ==
--- OUTSIDE RECORDS SUMMARY | 2020-07-28 10:36 | XMS REPORT | Continuity of Care Document ---
:1935 Author Organization [facility] t Address [address] [place] [address] Care Team Providers Name Role Phone Pcp MD Primary Care Physician Unavailable RONEL COOLEY Attending Clinician Unavailable Ronel Cooley MD Attending Clinician Michael GUDINO Attending Clinician Lila Velez MD Attending Clinician RONEL COOLEY Admitting Clinician Unavailable Payers Payer Name Policy Type Policy Effective Date Expiration Date Sour ce Number HUMANA - MEDICARE [id number] [facility] MGD CAREHUMANA 00:00:00 - Medical MEDICARE Center [id number]/[id number] 020-PresentMaps Contracted Problems Condition Condition Condition Status [...] makes Fitz es - nce 00:00: her [facility] Medical 00 Center Codeine Adverse Active Info Not [facility] Sulf[facility] Reaction Available [facility] Social History Social Habit Start Date Stop Date Quantity Comments Source History SDOH [facility] St[facility] Dr[facility] Medica l Center History SDNM [facility] - Alcohol Binge Medical Andrew ter Sex Assigned At [facility] [place] [facility] Alcohol intake 2019-07-31 2019-07-[address] - 00:00:00 00:00:00 non-drinker of Medical Ce nter alcohol (finding) Tobacco use and 2019-07-31 2019-07-[address] [facility] [place] - exposure 00:00:00 00:00:00 Medical Center History SDOH 2019-07-30 2019-07-[address] [facility] - Alcohol Frequency 00:00:00 00:00:00 [facility] History of tobacco 1989-07-29 Current smoker [facility] use [facility] Smoking Status Start Date Stop Date Source Former smoker 2019-07-31 00:00:00 2019-07-31 00:00:00 [facility] Medications Ordered Filled Start Stop Current Ordering Indication Dosage Frequency Signature Comments Components Source Medication Medication Date Date Medication? Clinician (SIG) Name Name atenoloL Yes 25mg QD Take [address] (TENORMIN) 6-05 by mouth [facility]ukes - 25 MG 14:04: daily. Medical tablet [address] [place] hydrOXYzine Yes 10mg Take [address] (ATARAX) 10 6-05 by mouth Luke s - MG tablet 14:04: as needed. Me dical [address] [place] citalopram Yes 20mg QD Take [address] (CELEXA) 20 6-05 by mouth Luke s - MG tablet 14:04: daily. Medica l [address] [place] apixaban 2020- No 5mg QD Take 5 [...] Grayson [address] Hydrobromid Hydrobromid [facility] Tolterodine Tolterodine Yes Grayson [address] Tartrate Tartrate [facility] Myrbetriq Myrbetriq 2019- No [place] [address] 07-01 [facility] - 00:00 [facility] :00 l Outpati ent Clinics Vital Signs Vital Name Observation Time Observation Value Comments Source Systolic blood 2019-08-01 07:25:00 104 mm[Hg] [facility] Diastolic blood 2019-08-01 07:25:00 50 mm[Hg] [facility] S [facility] Heart rate 2019-08-01 07:25:00 76 /min [facility] Body temperature 2019-08-01 07:25:00 36.78 Blanca [facility] Respiratory rate 2019-08-01 07:25:00 18 /min [facility] Oxygen saturation in 2019-08-01 07:25:00 98 /min [facility] - Arterial blood by Medical Ce nter Pulse oximetry Body height 2019-07-30 21:45:[address] [facility] Body weight 2019-07-30 21:45:[address] [facility] BMI 2019-07-30 21:45:00 34.46 kg/m2 [facility] Procedures Procedure Date / Time Performed Performing Clinician [facility] e RHYTHM STRIP - SCAN 2019-08-04 14:40:16 ProviderShante [facility] BASIC METABOLIC PANEL 2019-08-01 03:52:00 [facility] (7) [facility] HEPATIC FUNCTION PANEL 2019-08-01 03:52:00 [facility] MAGNESIUM 2019-08-01 03:52:00 [facility] PHOSPHORUS 2019-08-01 03:52:00 [facility] CBC W/PLT COUNT & AUTO 2019-08-01 03:52:00 [facility] PREALBUMIN 2019-08-01 03:52:00 Niru Velez [facility] URINE CULTURE 2019-07-31 14:53:00 Niru Velez [facility] URINALYSIS W/ REFLEX 2019-07-31 14:53:00 [facility]z [facility] - URINE CULTURE [facility] BASIC METABOLIC PANEL 2019-07-31 05:12:00 [facility] (7) [facility] HEPATIC FUNCTION PANEL 2019-07-31 05:12:00 [facility] MAGNESIUM 2019-07-31 05:12:00 [facility] PHOSPHORUS 2019-07-31 05:12:00 [facility] CBC W/PLT COUNT & AUTO 2019-07-31 05:12:00 [facility] DIFFERENTIAL [facility] FACTOR 5 LEIDEN PCR 2019-07-31 05:12:00 [facility] (THROMBOTIC RISK) [facility] TSH/FREE T4 IF INDICATED 2019-07-31 05:12:00 [facility] [place] [facility] Plan of Care Planned Activity Planned Date Details Comments Source Future Scheduled 2019-10-28 INFLUENZA VACCINE (#[facility] [code = INFLUENZA Medical Ce nter VACCINE (#1)] Future Scheduled 2019-02-26 Medicare IPPE (WELCOME C [facility] - Test 00:00:00 TO MEDICARE) [code = [facility] Medicare IPPE (WELCOME TO MEDICARE)] Future Scheduled 2001 PNEUMOCOCCAL 65+ YRS [facility] - Test 00:00:00 (1 of 1 - [facility] [id number] PCV13) [code = PNEUMOCOCCAL 65+ YRS (1 of 1 - [id number] PCV13)] Encounters Start End Encounter Admission Attending Care Care Encounter Source Date/Time Date/Time Type Type Clinicians Facility Department ID 2020-07-27 2020-07-27 Outpatient [facility] [id number] [facility] 2020-06-09 2020-06-09 [facility] [id number] 2020-05-10 2020-05-10 Outpatient [facility] [id number] [facility] 2020-04-08 2020-04-08 Outpatient [facility] [id number] [facility] 2020-04-02 2020-04-02 Outpatient [facility] [id number] [facility] 2020-03-16 2020-03-16 Outpatient [facility] [id number] [facility] 2020-03-16 2020-03-16 Outpatient [facility] [id number] [facility] 2020-03-12 2020-03-12 Outpatient [facility] [id number] [facility] 2019-12-09 2019-12-09 Outpatient [facility] [id number] [facility] 2019-11-25 2019-11-25 Outpatient [facility] [id number] [facility] 2019-11-10 2019-11-10 Outpatient [facility] [id number] [facility] 2019-10-15 2019-10-15 [facility] [id number] 16:38:00 16:38:00 t Ph[facility]ive s - [facility] l Medicine Outpati ent Clinics 2019-10-08 2019-10-08 [facility] [id number] 16:14:00 16:14:00 t Ph[facility]Creat[facility] s - Heart Test [facility] Medicine l Medicine Outpati ent Clinics 2019-10-08 2019-10-08 [facility] [id number] 15:15:00 15:15:00 t [facility] Medicine Outpati ent Clinics 2019-09-11 2019-09-11 [facility] [id number] 15:01:00 15:01:00 t [facility] Medicine Outpati ent Clinics 2019-08-21 2019-08-21 [facility] [id number] 09:48:00 09:48:00 t [facility] Medicine Outpati ent Clinics 2019-08-06 2019-08-06 [facility] [id number] 16:00:00 16:00:00 t [facility] Medicine Outpati ent Clinics 2019-07-30 2019-07-30 [facility] [id number] 14:27:00 14:27:00 t [facility] Medicine Outpati ent Clinics 2019-07-29 2019-07-29 [facility] [id number] 11:45:00 11:45:00 t [facility] Medicine Outpati ent Clinics 2019-07-16 2019-07-16 [facility] [id number] 13:58:00 13:58:00 t [facility] Medicine Outpati ent Clinics 2019-05-29 2019-05-29 [facility] [id number] 13:15:00 13:15:00 t [facility] Medicine Outpati ent Clinics Results Test Description Test Time Test Comments Results Result Comments Source Factor 5 Leiden PCR (thrombotic risk) 2019-08-05 11:59:00 Test Item Value Reference Range Interpretation Comme nts Factor V Leiden Mutation SEE BELOW RES ULT: FACTOR V LEIDEN (test code = 7396131) (R506Q ) VARIANT NOT DETECTED Interpretation (test code = SEE BELOW INTERPRETATION: This 3374418) individual is n egative (normal) for th e Factor V Leiden(R506Q) v ariant in the Factor V gene. Increased risk of thrombophili a can becaused by a variety of genetic and non-genetic fac tors not screened for by this assay. Laboratory test ing supervised and results mon itored by Kizzy Rojo MD, PhD, [facility], [facility]. MUTATION ANALYS IS:The Factor V Leiden (R506Q) mutation [NM 228796.2: c.160 1G>A (p.R534Q)] inthe Factor V gene [...] other laborator y data. This test was devjohnnyo ped and its analytical perf ormance characteristics havebeen determined by [employer] [facility].It has not been cleared or approved by FDA. This assay has been validatedpursua nt to the CLIA regulations and is used for clinical purpos es. Health care providers, plea se contact your local [employer]' geneticcounselo r or call [phone] ([phone]) for assistance withinterpretat ion of these results. DONELL (test code = DONELL) Performing Lab [facility] [address] [place] [address] Aysha Waller MD, PhD, TIFF [facility]2020-06-05 05:37:00 Test Item Value Reference Range Interpretation Comments Prealbumin (test code = 10 mg/dL 14-45 L 94417-1) DONELL (test code = DONELL) Career Services Representative ID - PIAYA L Lab Interpretation (test Abnormal code = 93150-0) [facility]2020-06-05 05:37:00 Test Item Value Reference Range Interpretation Comments PREALBUMIN (BEAKER) (test code = 10 mg/dL 14-45 L 586) Career Services Representative ID - JENI AGARWALasic metabolic [id number] 05:08:00 Test Item Value Reference Range Interpretation Comments Sodium (test code = 142 meq/L 283-993 0974-2) Potassium (test 3.9 meq/L 3.5-5.1 code = 2823-3) Chloride (test code 107 meq/L 98-107 = 2075-0) CO2 (test code = 27 meq/L 22-29 8-9) BUN (test code = 21 mg/dL 7-21 3094-0) Creatinine (test 0.97 mg/dL 0.57-1.25 code = 2160-0) Glucose (test code 99 mg/dL 70-105 = 2345-7) Calcium (test code 8.7 mg/dL 8.4-10.2 = 59708-3) EGFR (test code = 55 mL/min/1.73 [place] [address]-0) NOT ACCURATE CREATININE CLEARANCE IN PREDICTING GLOMERULAR FILTRATION RATE . ESTIMATED GFR I S NOT APPLICABLE FOR DIALYSIS PATIEN TSChristie DONELL (test code = Career Services Representative ID - DONELL) JENI Young [facility] Hospital[facility]atic function [id number] 05:08:00 Test Item Value Reference Range Interpretation Comments Protein, Total (test 5.9 See_Comment L [Autom ated code = 2885-2) message] The system which generated this result transmit gia reference range : 6.0 - 8.3 gm/dL . The reference range was not u sed to interpret th is result as normal/abnormal . Albumin (test code = 3.3 g/dL 3.5-5 L 76051-8) Total Bilirubin (test 0.4 mg/dL 0.2-1.2 code = 1975-2) Bilirubin, Direct 0.2 mg/dL 0.1-0.5 (test code = 1968-7) Alkaline Phosphatase 112 U/L 40-150 (test code = 6768-6) AST (test code = 16 U/L 5-34 1920-8) ALT (test code = 10 U/L 6-55 1742-6) DONELL (test code = DONELL) Career Services Representative ID - JENI Young Lab Interpretation Abnormal (test code = 97126-9) [facility] Hospital[facility]esium2020-06-05 05:08:00 Test Item Value Reference Range Interpretation Comments Magnesium (test code = 1.5 mg/dL 1.6-2.6 L 17728-2) DONELL (test code = DONELL) Career Services Representative ID - CLAIREIVY L Lab Interpretation (test Abnormal code = 77221-6) [facility]osph[facility]2020-06-05 05:08:00 Test Item Value Reference Range Interpretation Comments Phosphorus (test code = 3.5 mg/dL 2.3-4.7 2777-1) DONELL (test code = DONELL) Career Services Representative ID - CLAIREIVY L Lab Interpretation (test Normal code = 26076-9) [facility]OSPHORUS2020-06-05 05:08:00 Test Item Value Reference Range Interpretation Comments PHOSPHORUS (BEAKER) (test code = 3.5 mg/dL 2.3-4.7 604) Career Services Representative ID - JENI [id number] 05:08:00 Test Item Value Reference Range Interpretation Comments MAGNESIUM (BEAKER) (test code = 1.5 mg/dL 1.6-2.6 L 627) Career Services Representative ID - JENI LBASIC METABOLIC [id number] 05:08:00 Test Item Value Reference Range Interpretation [...] S NOT APPLICABLE FOR DIALYSIS PATIEN TS. Career Services Representative ID - JENI LHEPATIC FUNCTION [id number] 05:08:00 Test Item Value Reference Range Interpretation [...] (test code = 10 U/L 6-55 347) Career Services Representative ID - JENI MAYER with platelet count + automated [id number] 05:00:00 Test Item Value Reference Range Interpretation Comments WBC (test code = 6690-2) 6.7 See_Comment [A utomated message] The system Swivl generated this result transmitted ref erence range: 3.5 - 10 .5 K/L. The refe rence range was not u sed to interpret this result as normal/abnor mal. RBC (test code = 789-8) 4.28 See_Comment [Au tomated message] The system Swiv[employer] generated this result transmitted ref erence range: 3.93 - 5 .22 M/L. The refe rence range was not u sed to interpret this result as normal/abnor mal. MCHC (test code = 786-4) 30.5 See_Comment L [A utomated message] The system Swiv[employer] generated this result transmitted ref erence range: 32.2 - 3 5.5 GM/DL. The refe rence range was not u sed to interpret this result as normal/abnor mal. Hematocrit (test code = 39.3 % 34.1-44.9 4544-3) MCV (test code = 787-2) 91.8 fL 79.4-94.8 MCH (test code = 785-6) 28.0 pg 25.6-32.2 RDW (test code = 788-0) 13.9 % 11.7-14.4 Platelets (test code = 249 See_Comment [Aut omated message] 777-3) The system Swiv[employer] generated this result transmitted ref erence range: 150 - 45 0 K/CU MM. The referen ce range was not u sed to interpret this result as normal/abnor mal. MPV (test code = 10.7 fL 9.4-12.3 40109-1) nRBC (test code = 413) 0 See_Comment [Aut omated message] The system Swiv[employer] generated this result transmitted ref erence range: 0 - 0 /1 00 WBC. The refere nce range was not u sed to interpret this result as normal/abnor mal. % Neutros (test code = 49 % 429) % Lymphs (test code = 34 % 430) % Monos (test code = 13 % 431) % Eos (test code = 432) 3 % % Baso (test code = 437) 1 % # Neutros (test code = 3.24 See_Comment [Aut omated message] 670) The system Swiv[employer] generated this result transmitted ref erence range: 1.56 - 6 .13 K/L. The refe rence range was not u sed to interpret this result as normal/abnor mal. # Lymphs (test code = 2.24 See_Comment [Auto mated message] 414) The system Swiv[employer] generated this result transmitted ref erence range: 1.18 - 3 .74 K/L. The refe rence range was not u sed to interpret this result as normal/abnor mal. # Monos (test code = 0.88 See_Comment H [Autom ated message] 415) The system Swivl generated this result transmitted ref erence range: 0.24 - 0 .36 K/L. The refe rence range was not u sed to interpret this result as normal/abnor mal. # Eos (test code = 416) 0.23 See_Comment [Au tomated message] The system Swivl generated this result transmitted ref erence range: 0.04 - 0 .36 K/L. The refe rence range was not u sed to interpret this result as normal/abnor mal. # Baso (test code = 417) 0.07 See_Comment [A utomated message] The system Swiv[employer] generated this result transmitted ref erence range: 0.01 - 0 .08 K/L. The refe rence range was not u sed to interpret this result as normal/abnor mal. Immature 0 % 0-1 Granulocytes-Relative (test code = 2801) Lab Interpretation (test Abnormal code = 96605-9) [facility] W/PLT COUNT & AUTO [id number] 05:00:00 Test Item Value Reference Range Interpretation [...] = 2801) Urinalysis w/Microscopic + Reflex to [id number] 15:12:00 Test Item Value Reference Range Interpretation Comments Color, UA (test code Yellow = 5778-6) Clarity, UA (test Clear code = 5767-9) Specific Lane, UA 1.030 1.001-1.035 (test code = 5811-5) pH, UA (test code = 5.0 5.0-8.0 5803-2) Protein, UA (test Negative Negative code = 45253-3) Glucose, UA (test Negative Negative code = 365) Ketones, UA (test Negative Negative code = 2514-8) Bilirubin, UA (test Negative Negative code = 82629-8) Blood, UA (test code Negative Negative = 12663-0) Nitrite, UA (test Negative Negative code = 5802-4) Leukocytes, UA (test Large Negative A code = 5799-2) Urobilinogen, UA 0.2 mg/dL 0.2-1 (test code = 02178-6) RBC, UA (test code = 1 See_Comment [Autom ated 05467-3) message] The system which generated this result transmit gia reference range : /HPF. The reference range was not used to interpret this result as normal/abnormal . WBC, UA (test code = 70 See_Comment [Autom ated 5821-4) message] The system which generated this result transmit gia reference range : /HPF. The reference range was not used to interpret this result as normal/abnormal . Mucus (test code = Rare 8247-9) Squam Epithel, UA 1 See_Comment [Automate d (test code = 60913-3) messag e] The system which generated this result transmit gia reference range : /HPF. The reference range was not used to interpret this result as normal/abnormal . Specimen Source (test code = 2795) DONELL (test code = DONELL) Career Services Representative ID - [auto]Career Services Representative ID - tech Lab Interpretation Abnormal (test code = 92276-3) [facility] W/ REFLEX URINE [id number] 15:12:00 Test Item Value Reference Range Interpretation [...] = 516) SOURCE(BEAKER) (test code = 2795) Career Services Representative ID - [auto]Career Services Representative ID - techTSH/Free T4 If [id number] 06:38:00 Test Item Value Reference Range Interpretation Comments TSH (test code = 1.079 See_Comment [Automated 31327-7) message] The system which generated this result transmit gia reference range : 0.350 - 4.940 uIU/mL. The reference range was not used to interpret this result as normal/abnormal . DONELL (test code = DONELL) Career Services Representative ID - LA Lab Interpretation Normal (test code = 24688-1) [facility]SH/FREE T4 IF [id number] 06:38:00 Test Item Value Reference Range Interpretation Comments THYROID STIMULATING HORMONE 1.079 uIU/mL 0.350-4.940 (BEAKER) (test code = 772) Career Services Representative ID - [id number] 06:13:00 Test Item Value Reference Range Interpretation Comments PHOSPHORUS (BEAKER) (test code = 3.9 mg/dL 2.3-4.7 604) Career Services Representative ID - [id number] 06:13:00 Test Item Value Reference Range Interpretation Comments MAGNESIUM (BEAKER) (test code = 1.7 mg/dL 1.6-2.6 627) Career Services Representative ID - LABASIC METABOLIC [id number] 06:13:00 Test Item Value Reference Range Interpretation [...] S NOT APPLICABLE FOR DIALYSIS PATIEN TS. Career Services Representative ID - LAHEPATIC FUNCTION [id number] 06:13:00 Test Item Value Reference Range Interpretation [...] (test code = 11 U/L 6-55 347) Career Services Representative ID - LACBC W/PLT COUNT & AUTO [id number] 05:38:00 Test Item Value Reference Range Interpretation [...] % 0-1 PERCENT (BEAKER) (test code = 2808)
[2020-07-28 12:54] LABS: Absolute Lymphocytes (CBC) 1.6 K/uL (0.7-4.9); Basophils % 1.1 % (0-1.3); Hematocrit 43.8 % (36.0-45.0); Lymphocytes % 23.9 % (15.3-44.8); RBC Red Blood Cell Count 4.46 M/uL (3.86-4.86)
[2020-07-28 13:05] LABS: Albumin 3.1 g/dL (3.4-5.0); Bilirubin Direct 0.3 mg/dL (0-0.2); Bilirubin Total 1.1 mg/dL (0.2-1.0); Potassium 4.1 mmol/L (3.5-5.1); Protein, Total 6.3 g/dL (6.4-8.2)
--- NOTE | 2020-07-28 13:36 | ER ---
Nurse's Notes [facility] Name: Jeannie Cobb Age: 85 yrs Sex: Female : 1935 Arrival Date: 07/28/2020 Time: 10:34 Bed 16 Private MD: Diagnosis: Dysphagia, unspecified Presentation: 07/28 11:07 Chief complaint: Patient's son or daughter states: Sent by Dr Horan for difficulty ph swallowing. States that it has been going on for some time, > 1 month, and has been getting worse. Also reports generalized weakness and fatigue. Coronavirus screen: Client denies travel out of the [place] in the last 14 days. At this time, the client does not indicate any symptoms associated with coronavirus-19. Ebola Screen: No symptoms or risks identified at this time. Initial Sepsis Screen: Does the patient meet any 2 criteria? No. Patient's initial sepsis screen is negative. Does the patient have a suspected source of infection? No. Patient's initial sepsis screen is negative. Risk Assessment: Do you want to hurt yourself or someone else? Patient reports no desire to harm self or others. Onset of symptoms was July 28, 2020. 11:07 Method Of Arrival: Wheelchair ph 11:07 Acuity: ETIENNE 3 ph Historical: - Allergies: 11:05 Codeine; ph - PMHx: 11:05 Atrial Fib; Hypertension; colon cancer; ph - PSHx: 11:05 L femur surgery; Hip replacement; Knee surgery; ph - Immunization history:: Adult Immunizations not up to date, Client reports having NOT received the Covid vaccine. - Social history:: Smoking status: Patient denies any tobacco usage or history of. Screenin:09 Abuse screen: Denies threats or abuse. Denies injuries from another. Nutritional kg screening: No deficits noted. Tuberculosis screening: No symptoms or risk factors identified. Fall Risk None identified. No fall in past 12 months (0 pts). No secondary diagnosis (0 pts). IV access (20 points). Ambulatory Aid- None/Bed Rest/Nurse Assist (0 pts). Gait- Normal/Bed Rest/Wheelchair (0 pts) Mental Status- Oriented to own ability (0 pts). Total Sanders Fall Scale indicates Low Risk Score (25-44 pts). Fall prevention measures have been instituted. Side Rails Up X 2 Placed close to Nursing Station Frequent Obs/Assesments occuring Family Present and informed to notify staff if they need to leave bedside As available Patient and Family Educated on Fall Prevention Program and strategies. Assessment: 12:22 General: Appears in no apparent distress. Behavior is calm, cooperative, appropriate kg for age, quiet. Pain: Denies pain. Neuro: No deficits noted. Level of Consciousness is awake, alert, obeys commands, Oriented to person, place, time, situation, Appropriate for age. Cardiovascular: No deficits noted. Heart tones S1 S2. Respiratory: No deficits noted. Airway is patent Trachea midline Respiratory effort is even, unlabored, relaxed, Respiratory pattern is regular, Breath sounds are clear bilaterally. GI: No deficits noted. : No deficits noted. EENT: Reports Difficulty swallowing that has gotten worse. Was sent over by PCP.. Derm: Reports Mole on RUE that she would like to get check put. About the size of a dime raised. Musculoskeletal: No deficits noted. Vital Signs: 11:07 BP 122 / 76; Pulse 86; Resp 18; Temp 98.3(TE); Pulse Ox 96% on R/A; Weight 91.63 kg; ph Height 5 ft. 6 in. (167.64 cm); 12:24 BP 121 / 88; Pulse 68; Resp 20; Pulse Ox 98% on R/A; kg 11:07 Body Mass Index 32.60 (91.63 kg, 167.64 cm) ph ED Course: 10:34 Patient arrived in ED. as 11:05 Arm band placed on Patient placed in waiting room. ph 11:10 Triage completed. ph 11:42 Juanita Wellington is Primary Nurse. kg 12:06 Reynaldo Donald MD is Attending Physician. tw4 12:15 Inserted saline lock: 20 gauge in left antecubital area, using aseptic technique. kg 13:04 CXR XRAY In Process Unspecified. EDMS 13:11 Patient has correct armband on for positive identification. Bed in low position. Call kg light in reach. Side rails up X2. Adult w/ patient. 13:35 Karen Gomez MD is Hospitalizing Provider. tw4 22:47 No provider procedures requiring assistance completed. Patient admitted, IV remains in [address] place. Administered Medications: No medications were administered Outcome: 13:36 Decision to Hospitalize by Provider. tw4 22:47 Admitted to Med/surg accompanied by nurse, via stretcher, Report called to Nelia crook 22:47 Condition: good 22:47 Instructed on the need for admit. 22:48 Patient left the ED. armaan Signatures: Dispatcher [employer] Maude Andrea Patricia, RN RN Reynaldo Donald MD MD tw4 Fernando Lui RN RN 8 Juanita Wellington kg
--- NOTE | 2020-07-28 13:36 | EDPHYS ---
Physician Documentation [facility] Name: Jeannie Cobb Age: 85 yrs Sex: Female : 1935 Arrival Date: 07/28/2020 Time: 10:34 Bed 16 Private MD: ED Physician Reynaldo Donald Historical: - Allergies: 07/28 11:05 Codeine; ph - PMHx: 11:05 Atrial Fib; Hypertension; colon cancer; ph - PSHx: 11:05 L femur surgery; Hip replacement; Knee surgery; ph - Immunization history:: Adult Immunizations not up to date, Client reports having NOT received the Covid vaccine. - Social history:: Smoking status: Patient denies any tobacco usage or history of. Vital Signs: 11:07 BP 122 / 76; Pulse 86; Resp 18; Temp 98.3(TE); Pulse Ox 96% on R/A; Weight 91.63 kg; ph Height 5 ft. 6 in. (167.64 cm); 12:24 BP 121 / 88; Pulse 68; Resp 20; Pulse Ox 98% on R/A; kg 11:07 Body Mass Index 32.60 (91.63 kg, 167.64 cm) ph MDM: 12:06 Patient medically screened. tw07/28 12:27 Order name: Basic Metabolic Panel; Complete Time: 16:02 tw 07/28 16:03 Interpretation: Normal except: CL 109; CO2 33; GFR 61. [facility] 07/28 12:27 Order name: CBC with Diff; Complete Time: 16:02 [facility] 07/28 16:03 Interpretation: Normal except: MCV 98.1. tw 07/28 12:27 Order name: Hepatic Function; Complete Time: 16:02 [facility] 07/28 16:03 Interpretation: Normal except: ALB 3.1; TP 6.3; BILID 0.3; BILIT 1.1; ALK 129. [facility] 07/28 12:27 Order name: Lipase; Complete Time: 16:02 tw 07/28 16:03 Interpretation: Normal except: LIP 53. [facility] 07/28 14:34 Order name: COVID-19 : Document "Date of Symptom Onset" if Symptomatic. kg 07/28 16:00 Order name: SARS-COV-2 RT PCR; Complete Time: 16:02 [facility] 07/28 16:04 Interpretation: Within normal limits. [facility] 07/28 12:27 Order name: IV Saline Lock; Complete Time: 12:29 [facility] 07/28 12:27 Order name: CXR XRAY; Complete Time: 16:02 [facility] 07/28 16:03 Interpretation: No acute disease. [facility] 07/28 14:14 Order name: NPO; Complete Time: 14:15 [facility] 07/28 14:15 Order name: Speech Therapy Consult [facility] 07/28 19:43 Order name: Urine Culture [facility] 07/28 19:43 Order name: Urine Microscopic Only [facility] 07/28 19:59 Order name: Urine Dipstick-Ancillary [facility] 07/28 20:56 Order name: Urine Microscopic Only [facility] 07/28 12:27 Order name: Labs collected and sent; Complete Time: 12:29 [facility] 07/28 19:43 Order name: Urine Dipstick-Ancillary (obtain specimen); Complete Time: 20:01 [facility] Administered Medications: No medications were administered Disposition: 07/28/20 13:36 Hospitalization ordered by Karen Gomez for Inpatient Admission. Preliminary diagnosis is Dysphagia, unspecified. - Bed requested for Telemetry/MedSurg (Inpatient). - Status is Inpatient Admission. jm8 - Condition is Stable. - Problem is new. - Symptoms have improved. Signatures: Dispatcher [employer] [facility] Vielka Savage RN RN tl1 Celia Contreras RN RN Reynaldo Donald MD MD tw4 Fernando Lui RN RN jm8 Juanita Wellington Corrections: (The following items were deleted from the chart) 20:20 13:36 Hospitalization Ordered by Karen Gomez MD for Inpatient Admission. Preliminary tl1 diagnosis is Dysphagia, unspecified. Bed requested for Telemetry/MedSurg (Inpatient). Status is Inpatient Admission. Condition is Stable. Problem is new. Symptoms have improved. [facility] 22:48 20:20 07/28/2020 13:36 Hospitalization Ordered by Karen Gomez MD for Inpatient 8 Admission. Preliminary diagnosis is Dysphagia, unspecified. Bed requested for Telemetry/MedSurg (Inpatient). Status is Inpatient Admission. Condition is Stable. Problem is new. Symptoms have improved. tl1
--- NOTE | 2020-07-28 13:48 | RAD REPORT ---
EXAM DESCRIPTION: RAD - Chest Single View - 07/28/2020 1:03 pm CLINICAL HISTORY: DYSPHAGIAweakness, 51 COMPARISON: Portable March 01 TECHNIQUE: AP portable chest image was obtained 07/28/2020 1:03 pm . FINDINGS: No focal lung process seen. Interstitial pattern is similar to comparison. Retrocardiac as sessment is limited Heart and vasculature are normal. No measurable pleural effusion and no pneumotho rax. No acute bony abnormality seen. No acute aortic findings suspected. IMPRESSION: No acute cardiopulmonary process. No significant change from comparison.
[2020-07-28] MEDS ORDERED: KETOROLAC 30 MG/ML INJ IV PRN (15:27)
--- NOTE | 2020-07-28 15:31 | P.HP ---
Certification for Inpatient Patient admitted to: Inpatient With expected LOS: >2 Midnights Patient will require the following post-hospital care: None Practitioner: I am a practitioner with admitting privileges, knowledge of patient current condition, hospital course, and medical plan of care. Services: Services provided to patient in accordance with Admission requirements found in Title 42 Section 412.3 of the Code of Federal Regulations <Juana Tom - Last Filed: 07/28/20 18:27> Patient History Date of Service: 07/28/20 Reason for admission: Dysphagia History of Present Illness: Patient is an 85-year-old female with a past medical history significant for AFIB, hypertension, colon cancer, esophageal stricture who presents with complaint of dysphagia. Patient reported that she has been having dysphagia for the past 5 years and follows up with a communications programmer O\P. Patient reported that she has had 2 esophageal dilation in 5 years, the last one being 3 years ago. Patient reported that she was supposed to have another esophageal dilation but has not had time to follow up with her GI doctor. Patient reported that her dysphagia became severe to the point that she can't swallow anything. Patient denies choking. Patient reports associated signs and symptoms of fatigue, weakness and headache. Patient denies any other signs symptoms. Symptoms are aggravated or relieved by nothing. Patient decided to present to the hospital due to worsening symptoms. - Past Medical/Surgical History -: Afib -: HTN -: Esophageal stricture - Social History Smoking Status: Former smoker Alcohol use: No CD- Drugs: No Caffeine use: No Place of Residence: Home <Juana Tom - Last Filed: 07/28/20 18:27> Date of Service: 07/28/20 <Karen Gomez - Last Filed: 07/29/20 10:36> Allergies codeine Adverse Reaction (Verified 07/28/20 16:58) Nausea/Vomiting Home Medications: Apixaban [Eliquis] 5 mg PO DAILY 07/28/20 Atenolol [Tenormin] 25 mg PO DAILY 07/28/20 Escitalopram Oxalate [Lexapro] 20 mg PO DAILY 07/28/20 Review of Systems General: Weakness, Other (Fatigue) Eyes: Unremarkable ENT: Other (Dysphagia ) Respiratory: Unremarkable Cardiovascular: Unremarkable Gastrointestinal: Unremarkable Genitourinary: Unremarkable Musculoskeletal: Unremarkable Integumentary: Unremarkable Neurological: Other (Headache ) <Juana Tom - Last Filed: 07/28/20 18:27> Physical Examination - Physical Exam General: Alert, Oriented x3 HEENT: Atraumatic, PERRLA, Mucous membr. moist/pink, EOMI, Sclerae nonicteric Neck: Supple, 2+ carotid pulse no bruit, No LAD, Without JVD or thyroid abnormality Respiratory: Clear to auscultation bilaterally, Normal air movement Cardiovascular: No edema, Regular rate/rhythm, Normal S1 S2 Capillary refill: <2 Seconds Gastrointestinal: Normal bowel sounds, No tenderness Musculoskeletal: No clubbing, No tenderness Integumentary: No rashes Neurological: Normal gait, Normal speech, Normal strength at 5/5 x4 extr, Normal tone, Normal affect Lymphatics: No axilla or inguinal lymphadenopathy External genitalia: Deferred Rectal: Deferred - Studies Laboratory Data (last 24 hrs) 07/28/20 12:39: WBC 6.50, Hgb 14.3, Hct 43.8, Plt Count 216 07/28/20 12:39: Sodium 145, Potassium 4.1, BUN 16, Creatinine 0.88, Glucose 96, Total Bilirubin 1.1 H, AST 19, ALT 18, Alkaline Phosphatase 129 H, Lipase 53 L <Juana Tom Roma - Last Filed: 07/28/20 18:27> - Studies Laboratory Data (last 24 hrs) 07/28/20 12:39: WBC 6.50, Hgb 14.3, Hct 43.8, Plt Count 216 07/28/20 12:39: Sodium 145, Potassium 4.1, BUN 16, Creatinine 0.88, Glucose 96, Total Bilirubin 1.1 H, AST 19, ALT 18, Alkaline Phosphatase 129 H, Lipase 53 L <Karen Gomez - Last Filed: 07/29/20 10:36> Assessment and Plan - Plan --Dysphagia. Patient has history of history of esophageal stricture and has had 2 esophageal dilations in the last 5 years. Chest x-ray does not indicate any cardiopulmonary abnormality. Gastroenterology consulted. Recommends an esophagogram. We keep patient NPO. Continue IV hydration with D5 normal saline. Continue supportive care. Further management per communications programmer. --Atrial fibrillation. Continue heparin subQ. Continue Eliquis when pt is able to swallow --History of colon cancer. Continue supportive care --Hypertension. Stable. Will manage BP with hydralazine p.r.n.. --Class 1 obesity. Likely secondary to excess calories intake. Patient counseled on diet and exercise therapy. --DVT prophylaxis with heparin subQ. Discharge Plan: Home Plan to discharge in: Greater than 2 days - Advance Directives Does patient have a Living Will: No Does patient have a Durable POA for Healthcare: No - Code Status/Comfort Care Code Status Assessed: Yes Code Status: Full Code Critical Care: No <Juana Tom - Last Filed: 07/28/20 18:27> Date of Service: 07/28/20 Agree with plan of care as mentioned below. Patient is clinically doing well. Continue with IV fluids. Workup for dysphagia. Physical Examination Vitals: Afebrile vital signs are stable Physical exam: Awake, alert, and oriented x3 Cardiovascular: Regular rate rhythm Abdomen: Soft nontender nondistended Neuro: No focal deficits 1. Dysphagia= esophagram cava speech therapy, GI consultation for EEG and possible esophageal dilatation <Karen Gomez - Last Filed: 07/29/20 10:36>
[2020-07-28] MEDS: D5 0.9 NS 1,000 ML IV SCH (16:00)
[2020-07-28] MEDS ORDERED: D5 0.9 NS 1,000 ML IV ONE (16:47)
[2020-07-28 16:57] VITALS: BMI 33.9
[2020-07-28] MEDS ORDERED: PNEUMOCOCCAL VACCINE 0.5 ML IMVAC ONE (18:00)
[2020-07-28] MEDS ORDERED: HYDRALAZINE HCL 20 MG/ML VIAL IV PRN (18:43)
[2020-07-28 19:59] LABS: Urine Blood Trace-intact (Negative); Urine Glucose Negative (Negative); Urine Protein Trace (Negative); Urine Specific Gravity >=1.030 (1.005-1.030)
[2020-07-28 20:55] LABS: Urine Bacteria >50 /HPF (<20); Urine Urothelial Cells <5 /HPF (NONE SEEN)
[2020-07-28 20:56] LABS: Urine RBC NONE SEEN /HPF (NONE SEEN)
[2020-07-28] MEDS ORDERED: SODIUM CHLORIDE 0.9% 10ML INJ IV PRN (22:16)
[2020-07-28] MEDS ORDERED: ACETAMINOPHEN 650MG/RECT SUPP PR PRN (22:16)
[2020-07-28] MEDS ORDERED: ONDANSETRON 4 MG/2 ML VIAL IV PRN (22:16)
[2020-07-29] MEDS: HEPARIN 5000 UNIT/ML 1 ML VIAL SQ SCH ×4 (01:52→21:24)
[2020-07-29] MEDS: PANTOPRAZOLE 40 MG INJ IVP SCH ×3 (01:52→21:25)
[2020-07-29] MEDS: D5 0.9 NS 1,000 ML IV SCH ×4 (01:52→18:36)
[2020-07-29 04:41] LABS: Absolute Lymphocytes (CBC) 2.1 K/uL (0.7-4.9); Basophils % 1.1 % (0-1.3); Hematocrit 41.6 % (36.0-45.0); Lymphocytes % 33.1 % (15.3-44.8); MPV 9.3 fL (7.6-11.3); RBC Red Blood Cell Count 4.24 M/uL (3.86-4.86)
[2020-07-29 05:03] LABS: Magnesium 1.8 mg/dL (1.8-2.4); Potassium 3.8 mmol/L (3.5-5.1)
[2020-07-29] MEDS ORDERED: MAGNESIUM SULFATE 1 gm IVPB 1 GM/100 ML BAG IV ONE (05:55)
[2020-07-29] MEDS ORDERED: KCL 20 MEQ/100 mL IVPB 20 MEQ/100 ML BAG IV SCH (08:00)
[2020-07-29] MEDS: atenoloL 25 MG TAB PO SCH ×2 (09:00→09:31)
[2020-07-29] MEDS: ESCITALOPRAM 20 MG TAB PO SCH ×2 (09:00→09:29)
--- NOTE | 2020-07-29 10:39 | P.PN ---
Subjective Date of Service: 07/29/20 Patient is clinically doing well with no new complaints. Esophagram pending. GI consultation pending Review of Systems 10-point ROS is otherwise unremarkable Physical Examination - Vital Signs Temperature: 97.9 F Blood Pressure: 123/78 Pulse: 77 Respirations: 20 Pulse Ox (%): 93 - Physical Exam General: Alert, In no apparent distress, Oriented x3 HEENT: Atraumatic, PERRLA, EOMI Neck: Supple, JVD not distended Respiratory: Clear to auscultation bilaterally, Normal air movement Cardiovascular: Regular rate/rhythm, Normal S1 S2 Gastrointestinal: Normal bowel sounds, No tenderness Musculoskeletal: No tenderness Integumentary: No rashes Neurological: Normal speech, Normal tone, Normal affect Lymphatics: No axilla or inguinal lymphadenopathy - Studies Laboratory Data (last 24 hrs) 07/28/20 12:39: WBC 6.50, Hgb 14.3, Hct 43.8, Plt Count 216 07/28/20 12:39: Sodium 145, Potassium 4.1, BUN 16, Creatinine 0.88, Glucose 96, Total Bilirubin 1.1 H, AST 19, ALT 18, Alkaline Phosphatase 129 H, Lipase 53 L Medications List Reviewed: Yes Assessment & Plan - Problems (Diagnosis) (1) Dysphagia Current Visit: Yes Status: Acute (2) Esophageal stricture Current Visit: Yes Status: Acute (3) Hypertension Current Visit: Yes Status: Acute (4) Atrial fibrillation Current Visit: Yes Status: Acute (5) TIA (transient ischemic attack) Current Visit: Yes Status: Acute - Plan Plan: 1. PPI and IV hydration 2. Speech therapy consultation 3. GI consultation 4. Esophagram 5. GI and DVT prophylaxis Discharge Plan: Home Plan to discharge in: Greater than 2 days - Advance Directives Does patient have a Living Will: No Does patient have a Durable POA for Healthcare: No - Code Status/Comfort Care Code Status: Full Code Critical Care: No Time Spent Managing PTS Care (In Minutes): 35
[2020-07-30] MEDS: D5 0.9 NS 1,000 ML IV SCH ×3 (00:31→21:20)
[2020-07-30 06:01] LABS: Potassium 3.8 mmol/L (3.5-5.1)
[2020-07-30] MEDS ORDERED: KCL 20 MEQ/100 mL IVPB 20 MEQ/100 ML BAG IV SCH (07:00)
[2020-07-30] MEDS: ESCITALOPRAM 20 MG TAB PO SCH (09:00)
[2020-07-30] MEDS: atenoloL 25 MG TAB PO SCH (09:00)
[2020-07-30] MEDS: HEPARIN 5000 UNIT/ML 1 ML VIAL SQ SCH ×2 (09:00→20:34)
[2020-07-30] MEDS: PANTOPRAZOLE 40 MG INJ IVP SCH ×2 (09:49→20:35)
[2020-07-30] MEDS ORDERED: Ringers Lactate 1,000 ML IV ONE (16:32)
[2020-07-30] MEDS ORDERED: CEFTRIAXONE/SWI 1gm 1 GM/10 ML SYR IV ONE (16:37)
[2020-07-30] MEDS ORDERED: LIDOCAINE 1% MPF 5 ML VIAL ONE (16:47)
[2020-07-30] MEDS ORDERED: propofoL 200 MG/20 ML VIAL IV ONE (16:47)
--- NOTE | 2020-07-30 17:36 | ENDO RPT ---
[address], [address] EGD WITH DILATION PROCEDURE REPORT EXAM DATE: 07/30/2020 PATIENT NAME: Jeannie Cobb MR#: [id number] BIRTHDATE: 1935 ATTENDING: Bhavesh Espino Dr STATUS: inpatient - [address] [employer] MANAGER: Bela Fonseca RN, Delores Ha RN, Eusebia Castillo RN, and Sheila Black CST INDICATIONS: The patient is a 85 yr old Female here for an EGD with dilation due to dysphagia PROCEDURE PERFORMED: EGD with biopsy and EGD with dilatation over guidewire MEDICATIONS: Per Anesthesia. TOPICAL ANESTHETIC: none CONSENT: The patient understands the risks and benefits of the procedure and understands that these risks include, but are not limited to: sedation, allergic reaction, infection, perforation and/or bleeding. Alternative means of evaluation and treatment include, among others: physical exam, x-rays, and/or surgical intervention. The patient elects to proceed with this endoscopic procedure. DESCRIPTION OF PROCEDURE: During intra-op preparation period all mechanical medical equipment was checked for proper function. Hand hygiene and appropriate measures for infection prevention was taken. After the risks, benefits and alternatives of the procedure were thoroughly explained, Informed consent was verified, confirmed and timeout was successfully executed by the treatment team. The patient was anesthetized with topical anesthesia and the [id number] ([id number]) endoscope was introduced through the mouth and advanced to the second portion of the duodenum. The instrument was slowly withdrawn as the mucosa was fully examined. guidewire were performed. Moderate atrophic gastritis was found in the body and the antrum of the stomach. Multiple biopsies were obtained and sent to pathology. Few small 2-4 mm sessile polyps were found in the body of the stomach. With jumbo forceps, a biopsy was obtained and sent to pathology. Dilation was performed at lower esophagus. DILATOR: SIZE(S): RESISTANCE: HEME: APPEARANCE: Dilator: Savary over guidewire Size(s): 14, 15 mm Resistance: minimal Heme: none Appearance: adequate COMMENT: Retroflexed views revealed no abnormalities. ADVERSE EVENTS: There were no complications. IMPRESSIONS: 1. Spasms of the total esophagus esophageal biopsies 3. Moderate atrophic gastritis in the body and the antrum of the stomach, s/p biopsies 4. Few small 2-4 mm sessile polyps in the body of the stomach RECOMMENDATIONS: 1. await biopsy results 4. esophageal manometry REPEAT EXAM: Bhavesh Espino Dr eSigned: Bhavesh Espino Dr 07/30/2020 5:35 PM cc: Karen Gomez CPT CODES: ICD9 CODES: PATIENT NAME: CobbJeannie MR#: [id number]
--- NOTE | 2020-07-30 20:45 | CON ---
Date of Consultation: 07/30/2020 Reason For Consultation: Dysphagia to solids greater than liquids. History Of Present Illness: The patient is an 85-year-old white female with history of colon cancer in 1986, status post resection, atrial fibrillation, obesity, fall with fracture of all bones in the left side as per the patient and family with left foot drop after orthopedic surgery for hip and leg fracture. The patient came to the hospital due to dysphagia. She has been having dysphagia for 5 to 6 years. She had an EGD with dilatation at [place], [place] and this gave her no relief, she a nd daughter report. The patient went to speech therapy at that time, was given some speech therapy e xercises to do, which she did for some time, but then had stopped years ago it appears and have probl ems. The patient was evaluated by speech therapy here in the hospital for evaluation, led her to be allowed to have p.o. diet, start of clear liquids and then the full liquids, which she seemed to tole rate. The patient states she has most difficulty swallowing meat or solids, some breads where she tr ies to swallow and she initially gets choked and cough. This sometimes occurs with liquids, but that is rare and mainly occurs with solids when she eats and has become more frequent to the point where she had to come to the emergency room for evaluation. Past Medical History: Significant for colon cancer in 1986, status post surgery; atrial fibrillation ; obesity; hypertension; esophageal stricture; history of EGD with dilatation at [facility], but dilatation gave her no relief of her dysphagia, then speech therapy exercises given in 2014 at that time; also history of obesity. Medications: See list. Social History: She is , 7 child. Daughter is with her currently at bedside. The patient qu it tobacco approximately in and . Rare alcohol. She does have occasional margaritas when she goes out to eat. Family History: Father of throat cancer, was a tobacco user. Mother of lung cancer, was a tobacco user. Review of Systems: The patient has dysphagia to solids greater than liquids at the suprasternal notch mainly with chokin g and coughing when trying to swallow the solids mainly, rarely with liquids. She denies any melena, hematochezia, hematemesis, coffee-ground emesis, hematuria, dysuria, polyuria, polydipsia, change in bowel habits, muscle aches, joint aches, backaches, depression, anxiety, chest pain, seizures, synco pe. Physical Examination: Vital Signs: She is 5 feet 6 inches, 210 pounds, BMI of 33.9 kg/m2. Temperature 96.8 degrees Fahren heit, pulse 70, respirations 18, blood pressure 130/83, O2 saturation 99%. General: She is an obese elderly female, lying in bed, in no acute distress. HEENT: Normocephalic, atraumatic. Anicteric. Pupils equal, round, and reactive to light. Extraocu lar movements are intact. Oropharynx is clear. Neck: Supple. No masses. Respirations: Clear to auscultation bilaterally. Cardiac: Regular rate and rhythm. No gallops. Abdomen: Positive bowel sounds. Soft, nontender, nondistended. No hepatosplenomegaly. Obese. No peritoneal signs. No rebound. No Pate's. Extremities: No clubbing, cyanosis, or edema. 2+ pulses. Neurologic: Alert and oriented x3. Grossly nonfocal. 5/5 motor strength. Sensation intact to ligh t touch. Laboratory Data: Yesterday, white count of 6.3, hemoglobin of 13.7, hematocrit 42, MCV of 98, platel et count of 200, polys of 46%, lymphocytes 33%, monocytes 15%, eosinophils 5%. The patient has a sod ium 145, potassium 3.8, chloride 114, bicarb 29, creatinine 0.8, glucose 98, magnesium 2.0, calcium 8 .0, total bilirubin 1.1, direct bilirubin 0.3, AST of 19, ALT of 18, alkaline phosphatase 129. B typ e natriuretic peptide of 594. Total protein 6.3, albumin 3.1, lipase 53. Urine is trace blood, posi tive nitrite, 1+ leukocyte esterase, greater than 50 white blood cells, less than 5 squamous epitheli al cells, greater than 50 bacteria, trace protein. Serologies, COVID-19 testing was negative. Chest x-ray negative. Impression: 1.Dysphagia to solids and liquids over the past 5 to 6 years. Speech therapy here has allowed the p atient to have p.o. She tolerated full liquids. However, she did have an esophagogastroduodenoscopy with dilatation at [place], [place] in approximately in 2014 without any relief of her dysphagi a. It appears she had speech therapy now and was given speech therapy exercises to do at home. The patient will need a modified barium swallow and esophagram and possible do this study. EGD will be u sed to assess no anatomical lesions, though doubt this is the case. 2.Urinary tract infection. She did have antibiotics and she is on Rocephin now for this. 3.History of colon cancer in 1986 with surgery, hypertension, atrial fibrillation, esophageal strict ure, which is questionable with esophagogastroduodenoscopy with dilatation that did relief her dyspha olayinka in 2014, obesity, all of bones from the left side broken with fall, left foot dropfoot after orth o surgery of hip at that time of the fall in the past. Recommendations: 1.Modified barium swallow esophagram can be done on Tuesdays and . Really, cannot be done t since its Sunday. The patient had 3 different EGD and modified barium swallow, so I cancelled t he procedure with EGD. 2.The patient can have outpatient modified barium swallow esophagram. 3.Esophageal motility study. 4.EGD to ensure no anatomical lesions and the patient can be discharged home and have further workup as outpatient since the patient is tolerating clear liquid and full liquids. LUIS/TYLER Voice ID: [id number] Report ID: [id number]
[2020-07-31] MEDS: D5 0.9 NS 1,000 ML IV SCH (06:20)
[2020-07-31] MEDS: ESCITALOPRAM 20 MG TAB PO SCH (08:50)
[2020-07-31] MEDS: atenoloL 25 MG TAB PO SCH (08:50)
[2020-07-31] MEDS: PANTOPRAZOLE 40 MG INJ IVP SCH (08:57)
[2020-07-31] MEDS: HEPARIN 5000 UNIT/ML 1 ML VIAL SQ SCH (08:57)
[2020-07-31] MEDS ORDERED: CEFTRIAXONE/SWI 1gm 1 GM/10 ML SYR IV SCH (09:00)
--- NOTE | 2020-07-31 09:41 | P.PN ---
Date of Service: 07/30/20 Subjective Patient clinically doing better today. Tolerating clear liquid diet. Resume diet after procedure done today. Scheduled for EGD. Review of Systems 10-point ROS is otherwise unremarkable Physical Examination - Vital Signs Reviewed - Physical Exam General: Alert, In no apparent distress, Oriented x3 Respiratory: Clear to auscultation bilaterally, Normal air movement Cardiovascular: Regular rate/rhythm, Normal S1 S2 Gastrointestinal: Normal bowel sounds, minimal epigastric tenderness Neurological: Normal speech, Normal tone, Normal affect Assessment & Plan - Problems (Diagnosis) (1) Dysphagia Current Visit: Yes Status: Acute (2) Esophageal stricture Current Visit: Yes Status: Acute (3) Hypertension Current Visit: Yes Status: Acute (4) Atrial fibrillation Current Visit: Yes Status: Acute (5) TIA (transient ischemic attack) Current Visit: Yes Status: Acute - Plan Plan: 1. PPI and IV hydration 2. Speech therapy consultation 3. GI consultation appreciated and 4. EGD today 5. GI and DVT prophylaxis
--- NOTE | 2020-07-31 09:49 | P.DS ---
Discharge Date: 07/31/20 Disposition: ROUTINE DISCHARGE Discharge Condition: GOOD Reason for Admission: Dysphagia - Problems (1) Dysphagia Current Visit: Yes Status: Acute (2) Esophageal stricture Current Visit: Yes Status: Acute (3) Hypertension Current Visit: Yes Status: Acute (4) Atrial fibrillation Current Visit: Yes Status: Acute (5) TIA (transient ischemic attack) Current Visit: Yes Status: Acute Brief History of Present Illness: Patient is an 85-year-old female with a past medical history significant for AFIB, hypertension, colon cancer, esophageal stricture who presents with complaint of dysphagia. Patient reported that she has been having dysphagia for the past 5 years and follows up with a center [facility]. Patient reported that she has had 2 esophageal dilation in 5 years, the last one being 3 years ago. Patient reported that she was supposed to have another esophageal dilation but has not had time to follow up with her GI doctor. Patient reported that her dysphagia became severe to the point that she can't swallow anything. Patient denies choking. Patient reports associated signs and symptoms of fatigue, weakness and headache. Patient denies any other signs symptoms. Symptoms are aggravated or relieved by nothing. Patient decided to present to the hospital due to worsening symptoms. Hospital Course: Patient had EGD which revealed patient did not have a significant esophageal stenosis. Most likely patient has gastroparesis. Patient to follow-up as an outpatient with Gastroenterology for were of esophagram as well as gastric emptying study. Clinically patient is doing well in will discharge her today on Reglan 5 mg before each meal. Continue close outpatient follow-up with Gastroenterology and PCP. Vital Signs/Physical Exam: Temp Pulse Resp BP Pulse Ox 97.1 F 81 18 147/73 H 92 07/31/20 04:00 07/31/20 08:50 07/31/20 04:00 07/31/20 08:50 07/31/20 04:00 General: Alert, In no apparent distress, Oriented x3 Laboratory Data at Discharge: WBC 6.30 K/uL (4.3-10.9) 07/29/20 04:04 Hgb 13.7 g/dL (12.0-15.0) 07/29/20 04:04 Hct 41.6 % (36.0-45.0) 07/29/20 04:04 Plt Count 200 K/uL (152-406) 07/29/20 04:04 Sodium 144 mmol/L (136-145) 07/31/20 05:59 Potassium 4.0 mmol/L (3.5-5.1) 07/31/20 05:59 BUN 10 mg/dL (7-18) 07/31/20 05:59 Creatinine 0.86 mg/dL (0.55-1.3) 07/31/20 05:59 Glucose 98 mg/dL (74-106) 07/31/20 05:59 Magnesium 2.0 mg/dL (1.8-2.4) 07/30/20 05:21 Total Bilirubin 1.1 mg/dL (0.2-1.0) H 07/28/20 12:39 AST 19 U/L (15-37) 07/28/20 12:39 ALT 18 U/L (12-78) 07/28/20 12:39 Alkaline Phosphatase 129 U/L (45-117) H 07/28/20 12:39 Lipase 53 U/L (73-393) L 07/28/20 12:39 Home Medications: Apixaban [Eliquis] 5 mg PO DAILY 07/28/20 Atenolol [Tenormin] 25 mg PO DAILY 07/28/20 Escitalopram Oxalate [Lexapro] 20 mg PO DAILY 07/28/20 Cefdinir [Omnicef] 300 mg PO BID #14 capsule 07/31/20 Metoclopramide HCl [Reglan] 5 mg PO AC #60 tablet 07/31/20 Pantoprazole [Protonix Tab] 40 mg PO DAILY #30 tab 07/31/20 New Medications: Cefdinir [Omnicef] 300 mg PO BID #14 capsule Pantoprazole [Protonix Tab] 40 mg PO DAILY #30 tab Metoclopramide HCl [Reglan] 5 mg PO AC #60 tablet Physician Discharge Instructions: OK TO DC IV AND DC HOME FOLLOW-UP WITH PRIMARY CARE PROVIDER IN 1-2 WEEKS FOLLOW-UP WITH GI, Dr. Espino, IN 1-2 WEEKS RETURN TO THE ER IF symptoms worsen CALL or TEXT DR. SWANSON AT [phone] IF ANY QUESTIONS REGARDING HOSPITAL STAY. PLEASE CALL THE FLOOR AT [phone] IF ANY MEDICATION OR NURSING QUESTIONS. Followup: Grayson Horan, [Primary Care Provider] - Time spent managing pt's care (in minutes): 35
[2020-07-31 09:54] VITALS: BP 123/78; TEMP 97.9
[2020-07-31 11:56] VITALS: O2SAT 94
== END 2020-07-31 11:16 | disposition home or self-care (01) | DRG 392 ==
LOC: ER 10:32 → ERHOLD 14:12 → 2ND 21:51
PROVIDERS: ADMIT Hospitalist; ATTEND Hospitalist
PROC: 0D738ZZ Dilation of Lower Esophagus, Via Natural or Artificial Opening Endoscopic (ICD-10-PCS; 2020-07-30)
PROC: 0DB78ZX Excision of Stomach, Pylorus, Via Natural or Artificial Opening Endoscopic, Diagnostic (ICD-10-PCS; principal; 2020-07-30 14:00)
DX: K31.84 Gastroparesis (principal); N39.0 Urinary tract infection, site not specified; K22.4 Dyskinesia of esophagus; K29.40 Chronic atrophic gastritis without bleeding; K31.7 Polyp of stomach and duodenum; I48.91 Unspecified atrial fibrillation; I10 Essential (primary) hypertension; E66.09 Other obesity due to excess calories; Z68.33 Body mass index [BMI] 33.0-33.9, adult; R13.10 Dysphagia, unspecified; Z85.038 Personal history of other malignant neoplasm of large intestine; Z96.649 Presence of unspecified artificial hip joint; Z87.891 Personal history of nicotine dependence; Z88.5 Allergy status to narcotic agent; Z79.01 Long term (current) use of anticoagulants; Z79.899 Other long term (current) drug therapy; Z71.3 Dietary counseling and surveillance; Z86.73 Personal history of transient ischemic attack (TIA), and cerebral infarction without residual deficits; Z20.822 Contact with and (suspected) exposure to COVID-19
CPT/HCPCS: 36415; 71045; 80048; 80076; 81003; 81015; 83690; 83735; 83880; 85025; 87077; 87086; 87088; 87186; 88305; 88312; 92610; 99285; C9113; J0696; J1644; J2405; J2704; J3475; J3480; J7042; J7120; U0003